=== PATIENT | female | born 1950 | race Caucasian/White ===

== ENCOUNTER 2017-04-25 19:20 | Emergency (ER) | payer MEDICARE ==
[~2017-04-25] VITALS: Ht 167.6 cm; Wt 74.8 kg
[~2017-04-25 19:20] MED LIST: ALPR.5 PO; AMIO200 PO; AMIT75; BENZ1 PO; BENZ2; BENZ2 PO; BISA10S PR; BISA5EC PO; CARI350; CARI350 PO; CARV25 PO; CEPH500 PO; CIPR500 PO; CYCL10 PO; Cyclobenzaprine5 MG PO; DIAZ2; DIAZ2 PO; DIAZ5; DIGO.125 PO; DILT30 PO; DIPATR PO; DOC250 PO; Drisdol50000 UNIT PO; FURO40 PO; GABA100 PO; GABA400 PO; GABA600 PO; HALO1 PO; HALO2 PO; HYDACE10B; HYDACE10B PO; HYDACE5 PO; HYDACE5325; HYDACE5325 PO; HYDCHL12.5 PO; HYDMOR2 PO; HYDR1TAB94 PO; IBUP800; IBUP800 PO; KLONOPIN; LANOXIN125 MCG PO; LEVFLO500 PO; LEVO750 PO; LIDO5TP TOP; LISI5 PO; LOSA25 PO; MAGCIT300 PO; MAGOXI400 PO; METH10; METO25; METO25ER PO; METPRE4DP PO; MORP15ER PO; MORP30ER PO; NAPR500 PO; NEBI10 PO; OLME40 PO; OXYACE5T; OXYACE5T PO; OXYC10ER; OXYC1TAB11 PO; OXYCONTIN; PAIN MED; PHENA200 PO; POTCHL20ER PO; POTCIT10 PO; PSYL5.85P PO; RISP.5 PO; RISP1 PO; RXCLIN PO; RXOXYACE PO; SACC250C PO; SPIR25 PO; SPIR50 PO; TOBDEXOPSU OP; TORSE20 PO; Voltaren100 GM TOP; WARF4 PO; WARF5 PO; WARF7.5 PO; XARELTO15 MG PO; XARELTO20 MG PO; [UNRECOGNIZED DRUG - CODE]; [UNRECOGNIZED DRUG - REMARK]
[2017-04-25 19:47] LABS: BASOPHILS ABSOLUTE AUTO 0.07 K/mm3 (0.00-0.23); BASOPHILS PERCENT AUTO 1 % (0-2); EOSINOPHILS ABSOLUTE AUTO 0.35 K/mm3 (0.00-0.68); EOSINOPHILS PERCENT AUTO 4 % (0-6); Hematocrit 36.7 % (33.0-51.0); Hemoglobin 12.3 g/dL (11.5-16.0); IMMATURE GRAN ABSOLUTE AUTO 0.03 K/mm3 (0.00-0.10); IMMATURE GRAN PERCENT AUTO 0 % (0-1); LYMPHOCYTES ABSOLUTE AUTO 2.48 K/mm3 (0.84-5.20); LYMPHOCYTES PERCENT AUTO 26 % (21-46); MONOCYTES ABSOLUTE AUTO 0.44 K/mm3 (0.16-1.47); MONOCYTES PERCENT AUTO 5 % (4-13); Mean Corpuscular HGB 32.2 pg (26.0-34.0); Mean Corpuscular HGB Conc 33.5 g/dL (31.5-36.5); Mean Corpuscular Volume 96 fL (80-100); Mean Platelet Volume 9.2 fL (9.1-12.4); NEUTROPHILS ABSOLUTE AUTO 6.04 K/mm3 (1.96-9.15); NEUTROPHILS PERCENT AUTO 64 % (41-73); Platelet Count 345 K/mm3 (150-400); RDW Coefficient Variation 14.1 % (11.7-14.2); RDW Standard Deviation 48.7 fL (35.1-46.3); Red Blood Cell Count 3.82 M/mm3 (3.80-5.20); White Blood Cell Count 9.41 K/mm3 (4.00-11.30)
[2017-04-25] MEDS ORDERED: ASPI325 PO (19:48)
[2017-04-25] MEDS ORDERED: WARF5 PO (19:48)
[2017-04-25 20:08] LABS: Alanine Aminotransfer (ALT/SGP 15 U/L (12-78); Albumin, Blood 3.6 g/dL (3.4-5.0); Albumin/Globulin Ratio 1.2 (0.8-1.8); Alk Phos 80 U/L (50-136); Anion Gap 9 mmol/L (6-16); Aspartate Aminotrans (AST/SGOT 15 U/L (12-37); Bilirubin, Total 0.7 mg/dL (0.1-1.0); Blood Urea Nitrogen 26 mg/dL (8-24); Bun/Creatinine Ratio 19.5 (12.0-20.0); CO2, Blood 24 mmol/L (21-32); Calcium, Blood 8.4 mg/dL (8.5-10.1); Chloride, Blood 98 mmol/L (98-108); Creatinine, Blood 1.33 mg/dL (0.40-1.00); Glomerular Filtration Rate 42 (60-); Glucose, Blood 101 mg/dL (70-99); Potassium, Blood 4.3 mmol/L (3.5-5.5); Sodium, Blood 131 mmol/L (136-145); Total Protein, Blood 6.6 g/dL (6.4-8.2); Troponin I <0.015 ng/mL (0.000-0.040)
[2017-04-25 20:19] LABS: Digoxin (Lanoxin) 0.92 ug/mL (0.80-2.00)
[2017-04-25 20:49] LABS: International Normalized Ratio 1.29; Prothrombin Time Results 13.5 Sec (9.7-11.5)
[2017-04-25] MEDS ORDERED: Nitrostat0.4 MG SL (21:55)
[2017-04-25] MEDS ORDERED: Pepcid20 MG PO (21:55)
[2017-04-25] MEDS ORDERED: Aspirin EC81 MG PO (21:55)
[2017-12-04] MEDS ORDERED: Alendronate Sod10 MG PO (16:02)
[2017-12-14] MEDS ORDERED: RISPERDAL PO (16:43)
[2017-12-14] MEDS ORDERED: ACET500 PO (16:44)
[2017-12-14] MEDS ORDERED: ALBU90OI61 INH (16:44)
[2018-02-28] MEDS ORDERED: Zofran Odt4 MG SL (11:42)
== END 2017-04-25 22:01 | disposition left against medical advice (07) ==
LOC: ER 19:20
PROVIDERS: Emergency Medicine
DX: R07.9 Chest pain, unspecified (principal); I10 Essential (primary) hypertension; J44.9 Chronic obstructive pulmonary disease, unspecified; F17.200 Nicotine dependence, unspecified, uncomplicated; Z88.2 Allergy status to sulfonamides; Z88.8 Allergy status to other drugs, medicaments and biological substances; Z79.82 Long term (current) use of aspirin; Z79.01 Long term (current) use of anticoagulants; Z90.89 Acquired absence of other organs; Z90.49 Acquired absence of other specified parts of digestive tract; Z79.899 Other long term (current) drug therapy; Z98.890 Other specified postprocedural states
CPT/HCPCS: 71046; 80053; 80162; 84484; 85025; 85610; 85730; 93005; 93010; 99284

== ENCOUNTER 2017-08-08 12:46 | Emergency (ER) | payer MEDICARE, OTHER ==
[~2017-08-08] VITALS: Ht 167.6 cm; Wt 74.8 kg
[~2017-08-08 12:46] MED LIST changes: +ASPI325 PO; +Aspirin EC81 MG PO; +Nitrostat0.4 MG SL; +Pepcid20 MG PO
[2017-08-08 13:27] LABS: BASOPHILS ABSOLUTE AUTO 0.05 K/mm3 (0.00-0.23); BASOPHILS PERCENT AUTO 1 % (0-2); EOSINOPHILS ABSOLUTE AUTO 0.08 K/mm3 (0.00-0.68); EOSINOPHILS PERCENT AUTO 1 % (0-6); Hematocrit 38.2 % (33.0-51.0); Hemoglobin 12.9 g/dL (11.5-16.0); IMMATURE GRAN ABSOLUTE AUTO 0.03 K/mm3 (0.00-0.10); IMMATURE GRAN PERCENT AUTO 0 % (0-1); LYMPHOCYTES ABSOLUTE AUTO 1.24 K/mm3 (0.84-5.20); LYMPHOCYTES PERCENT AUTO 14 % (21-46); MONOCYTES ABSOLUTE AUTO 0.52 K/mm3 (0.16-1.47); MONOCYTES PERCENT AUTO 6 % (4-13); Mean Corpuscular HGB 32.1 pg (26.0-34.0); Mean Corpuscular HGB Conc 33.8 g/dL (31.5-36.5); Mean Corpuscular Volume 95 fL (80-100); Mean Platelet Volume 8.9 fL (9.1-12.4); NEUTROPHILS ABSOLUTE AUTO 6.95 K/mm3 (1.96-9.15); NEUTROPHILS PERCENT AUTO 78 % (41-73); Platelet Count 490 K/mm3 (150-400); RDW Coefficient Variation 12.2 % (11.7-14.2); RDW Standard Deviation 42.7 fL (35.1-46.3); Red Blood Cell Count 4.02 M/mm3 (3.80-5.20); White Blood Cell Count 8.87 K/mm3 (4.00-11.30)
[2017-08-08] MEDS ORDERED: GABA300 PO (13:32)
[2017-08-08 13:44] LABS: International Normalized Ratio 1.76; Prothrombin Time Results 18.6 Sec (9.7-11.5)
[2017-08-08 13:48] LABS: Alanine Aminotransfer (ALT/SGP 18 U/L (12-78); Albumin, Blood 3.6 g/dL (3.4-5.0); Alk Phos 99 U/L (50-136); Anion Gap 10 mmol/L (6-16); Aspartate Aminotrans (AST/SGOT 12 U/L (12-37); Bilirubin, Total 0.7 mg/dL (0.1-1.0); Blood Urea Nitrogen 33 mg/dL (8-24); Bun/Creatinine Ratio 21.6 (12.0-20.0); CO2, Blood 24 mmol/L (21-32); Calcium, Blood 9.3 mg/dL (8.5-10.1); Chloride, Blood 103 mmol/L (98-108); Creatinine, Blood 1.53 mg/dL (0.40-1.00); Globulin, Blood 3.7 g/dL (2.2-4.0); Glomerular Filtration Rate 36 (60-); Glucose, Blood 102 mg/dL (70-99); Potassium, Blood 4.1 mmol/L (3.5-5.5); Sodium, Blood 137 mmol/L (136-145); Total Protein, Blood 7.3 g/dL (6.4-8.2); Troponin I <0.015 ng/mL (0.000-0.040)
[2017-08-08 13:56] LABS: Digoxin (Lanoxin) 0.09 ug/mL (0.80-2.00)
== END 2017-08-08 15:00 | disposition home or self-care (01) ==
LOC: ER 12:46
PROVIDERS: Emergency Medicine
DX: I48.91 Unspecified atrial fibrillation (principal); F20.9 Schizophrenia, unspecified; M54.5 Low back pain; G89.29 Other chronic pain; J44.9 Chronic obstructive pulmonary disease, unspecified; I10 Essential (primary) hypertension; F17.210 Nicotine dependence, cigarettes, uncomplicated; Z88.2 Allergy status to sulfonamides; Z88.8 Allergy status to other drugs, medicaments and biological substances; Z79.899 Other long term (current) drug therapy; Z79.01 Long term (current) use of anticoagulants; Z79.82 Long term (current) use of aspirin
CPT/HCPCS: 71045; 80053; 80162; 83880; 84484; 85025; 85610; 93005; 93010; 96374; 96375; 99283

== ENCOUNTER 2017-12-15 06:03 | Day surgery (SDC) | payer MEDICARE ==
[~2017-12-15] VITALS: Ht 152.4 cm; Wt 90.2 kg
[~2017-12-15 06:03] MED LIST changes: +ACET500 PO; +ALBU90OI61 INH; +Alendronate Sod10 MG PO; +GABA300 PO; +RISPERDAL PO
[2017-12-16 06:42] LABS: International Normalized Ratio 1.13; Prothrombin Time Results 11.6 Sec (9.7-11.5)
[2017-12-16 06:53] LABS: Bun/Creatinine Ratio 15.6 (12.0-20.0); Creatinine, Blood 1.47 mg/dL (0.40-1.00); Potassium, Blood 3.5 mmol/L (3.5-5.5)
[2017-12-16 10:05] LABS: International Normalized Ratio 1.2; Prothrombin Time Results 12.2 Sec (9.7-11.5)
[2017-12-16 15:01] LABS: International Normalized Ratio 1.21; Prothrombin Time Results 12.3 Sec (9.7-11.5)
[2017-12-16 15:13] LABS: Bun/Creatinine Ratio 16.2 (12.0-20.0); Calcium, Blood 7.7 mg/dL (8.5-10.1); Creatinine, Blood 1.42 mg/dL (0.40-1.00); Potassium, Blood 3.7 mmol/L (3.5-5.5)
== END 2017-12-16 17:12 | disposition home or self-care (01) ==
LOC: MHTC 06:03 → ICUW 08:22 → PCU 08:53 → MHTC 12-16 17:12
PROVIDERS: Internal Medicine Interventional Cardiology
PROC: 4A023N7 Measurement of Cardiac Sampling and Pressure, Left Heart, Percutaneous Approach (ICD-10-PCS; principal; 2017-12-15)
PROC: B211YZZ Fluoroscopy of Multiple Coronary Arteries using Other Contrast (ICD-10-PCS; principal; 2017-12-15)
PROC: 5A2204Z Restoration of Cardiac Rhythm, Single (ICD-10-PCS; principal; 2017-12-15)
DX: I25.10 Atherosclerotic heart disease of native coronary artery without angina pectoris (principal); I34.0 Nonrheumatic mitral (valve) insufficiency; I13.0 Hypertensive heart and chronic kidney disease with heart failure and stage 1 through stage 4 chronic kidney disease, or unspecified chronic kidney disease; I50.23 Acute on chronic systolic (congestive) heart failure; F17.210 Nicotine dependence, cigarettes, uncomplicated; I42.9 Cardiomyopathy, unspecified; I48.91 Unspecified atrial fibrillation; Z79.01 Long term (current) use of anticoagulants; N18.9 Chronic kidney disease, unspecified
CPT/HCPCS: 36415; 80048; 85610; 85730; 93454; 94640; 94762; 99152; 99153; C1769; C1894; J1644; J2250; J3010; J3480; J7030; Q9967

== ENCOUNTER 2017-12-19 08:37 | Emergency (ER) | payer MEDICARE ==
[~2017-12-19] VITALS: Ht 167.6 cm; Wt 90.7 kg
[2017-12-19 08:59] LABS: BASOPHILS ABSOLUTE AUTO 0.04 K/mm3 (0.00-0.23); BASOPHILS PERCENT AUTO 0 % (0-2); EOSINOPHILS ABSOLUTE AUTO 0.02 K/mm3 (0.00-0.68); EOSINOPHILS PERCENT AUTO 0 % (0-6); Hematocrit 39.1 % (33.0-51.0); Hemoglobin 12.1 g/dL (11.5-16.0); IMMATURE GRAN ABSOLUTE AUTO 0.04 K/mm3 (0.00-0.10); IMMATURE GRAN PERCENT AUTO 0 % (0-1); LYMPHOCYTES ABSOLUTE AUTO 0.77 K/mm3 (0.84-5.20); LYMPHOCYTES PERCENT AUTO 6 % (21-46); MONOCYTES ABSOLUTE AUTO 1.11 K/mm3 (0.16-1.47); MONOCYTES PERCENT AUTO 8 % (4-13); Mean Corpuscular HGB 29.8 pg (26.0-34.0); Mean Corpuscular HGB Conc 30.9 g/dL (31.5-36.5); Mean Corpuscular Volume 96 fL (80-100); NEUTROPHILS ABSOLUTE AUTO 11.63 K/mm3 (1.96-9.15); NEUTROPHILS PERCENT AUTO 85 % (41-73); Platelet Count 331 K/mm3 (150-400); RDW Coefficient Variation 16.7 % (11.7-14.2); RDW Standard Deviation 59.6 fL (35.1-46.3); Red Blood Cell Count 4.06 M/mm3 (3.80-5.20); White Blood Cell Count 13.61 K/mm3 (4.00-11.30)
[2017-12-19 09:08] LABS: Base Excess Venous 7.8 mmol/L; PCO2 Venous 54.5 mmHg (38-42); PO2 Venous 27.8 mmHg (38-42); pH Blood Venous 7.39 (7.34-7.37)
[2017-12-19 09:17] LABS: Alanine Aminotransfer (ALT/SGP 19 U/L (12-78); Albumin, Blood 3.3 g/dL (3.4-5.0); Alk Phos 120 U/L (50-136); Anion Gap 8 mmol/L (6-16); Aspartate Aminotrans (AST/SGOT 12 U/L (12-37); Bilirubin, Total 0.9 mg/dL (0.1-1.0); Blood Urea Nitrogen 20 mg/dL (8-24); Bun/Creatinine Ratio 17.9 (12.0-20.0); CO2, Blood 31 mmol/L (21-32); Calcium, Blood 9.1 mg/dL (8.5-10.1); Chloride, Blood 99 mmol/L (98-108); Creatinine, Blood 1.12 mg/dL (0.40-1.00); Globulin, Blood 3.4 g/dL (2.2-4.0); Glomerular Filtration Rate 52 (60-); Glucose, Blood 142 mg/dL (70-99); Potassium, Blood 3.6 mmol/L (3.5-5.5); Sodium, Blood 138 mmol/L (136-145); Total Protein, Blood 6.7 g/dL (6.4-8.2); Troponin I <0.015 ng/mL (0.000-0.040)
[2017-12-19 09:25] LABS: International Normalized Ratio 1.88; Prothrombin Time Results 18.7 Sec (9.7-11.5)
== END 2017-12-19 12:30 | disposition short-term general hospital (02) ==
LOC: ER 08:37
PROVIDERS: Emergency Medicine
DX: J96.01 Acute respiratory failure with hypoxia (principal); J44.1 Chronic obstructive pulmonary disease with (acute) exacerbation; I50.9 Heart failure, unspecified; I08.1 Rheumatic disorders of both mitral and tricuspid valves; I11.0 Hypertensive heart disease with heart failure; Z88.2 Allergy status to sulfonamides; Z88.8 Allergy status to other drugs, medicaments and biological substances; Z79.899 Other long term (current) drug therapy; Z79.01 Long term (current) use of anticoagulants; Z79.51 Long term (current) use of inhaled steroids
CPT/HCPCS: 36415; 71045; 80053; 82803; 83880; 84484; 85025; 85610; 93005; 93010; 94644; 94660; 99285-25

== ENCOUNTER 2018-04-20 01:25 | Inpatient (IN) | payer MEDICARE ==
[~2018-04-20] VITALS: Ht 167.6 cm; Wt 92.2 kg
[~2018-04-20 01:25] MED LIST changes: +Zofran Odt4 MG SL
[2018-04-20 01:41] LABS: PCO2 Arterial 35.8 mmHg (35-45); PO2 Arterial 128 mmHg (80-100)
[2018-04-20 01:49] LABS: BASOPHILS ABSOLUTE AUTO 0.07 K/mm3 (0.00-0.23); BASOPHILS PERCENT AUTO 1 % (0-2); EOSINOPHILS ABSOLUTE AUTO 0.36 K/mm3 (0.00-0.68); EOSINOPHILS PERCENT AUTO 4 % (0-6); Hematocrit 35.8 % (33.0-51.0); Hemoglobin 11.1 g/dL (11.5-16.0); IMMATURE GRAN ABSOLUTE AUTO 0.01 K/mm3 (0.00-0.10); IMMATURE GRAN PERCENT AUTO 0 % (0-1); LYMPHOCYTES ABSOLUTE AUTO 1.14 K/mm3 (0.84-5.20); LYMPHOCYTES PERCENT AUTO 12 % (21-46); MONOCYTES ABSOLUTE AUTO 0.62 K/mm3 (0.16-1.47); MONOCYTES PERCENT AUTO 7 % (4-13); Mean Corpuscular HGB 32.5 pg (26.0-34.0); Mean Corpuscular Volume 105 fL (80-100); Mean Platelet Volume 9.8 fL (9.1-12.4); NEUTROPHILS ABSOLUTE AUTO 7.28 K/mm3 (1.96-9.15); NEUTROPHILS PERCENT AUTO 77 % (41-73); Platelet Count 324 K/mm3 (150-400); RDW Coefficient Variation 13.6 % (11.7-14.2); RDW Standard Deviation 51.5 fL (35.1-46.3); Red Blood Cell Count 3.42 M/mm3 (3.80-5.20); White Blood Cell Count 9.48 K/mm3 (4.00-11.30)
[2018-04-20 02:09] LABS: International Normalized Ratio 1.11; Prothrombin Time Results 11.7 Sec (9.7-11.5)
[2018-04-20 02:14] LABS: Alanine Aminotransfer (ALT/SGP 65 U/L (12-78); Albumin, Blood 3.8 g/dL (3.4-5.0); Albumin/Globulin Ratio 1.2 (0.8-1.8); Alk Phos 133 U/L (50-136); Anion Gap 10 mmol/L (6-16); Aspartate Aminotrans (AST/SGOT 39 U/L (12-37); Bilirubin, Total 0.4 mg/dL (0.1-1.0); Blood Urea Nitrogen 19 mg/dL (8-24); CO2, Blood 24 mmol/L (21-32); Calcium, Blood 7.9 mg/dL (8.5-10.1); Chloride, Blood 111 mmol/L (98-108); Creatinine, Blood 1.19 mg/dL (0.40-1.00); Globulin, Blood 3.2 g/dL (2.2-4.0); Glomerular Filtration Rate 48 (60-); Glucose, Blood 124 mg/dL (70-99); Potassium, Blood 3.4 mmol/L (3.5-5.5); Sodium, Blood 145 mmol/L (136-145); Troponin I <0.015 ng/mL (0.000-0.040)
--- NOTE | 2018-04-20 03:43 | NUR ---
ADMIT NOTE ADMIT 68 YO FEMALE TO ICU 15, PCU STATUS TO HOSPITALIST DR MOJICA SERVICE PER TAMY VIA ER. GAIT STEADY WITH ASSIST TO TRANSFER TO BED. MONITOR PLACED SHOWING AFIB. HEART RATE 90'S-110'S. REQUEST PAIN MED SECONDARY TO PAIN IN BACK/ LEGS. EXPLAINED THAT HAD BEEN GIVEN MED IN ER. LUNGS SOUNDS CLEAR IN UPPER LOBES WITH DECREASED SOUNDS IN THE BASES. REPIRATIONS REGULAR AND EASY AT REST WITH SPO2 94-96% ABDOMEN SOFT WITH BOWEL SOUNDS FOUR QUADS. PEDAL ANKLE EDEMA NOTED 1+ PEDAL PULSES PRESENT. CONTINUE TO MONITOR AND REPORT CHANGE IN PATIENT CONDITION.
--- NOTE | 2018-04-20 06:40 | NUR ---
SHIFT SUMMARY; rests quietly when undisturbed. monITOR INTACT SHOWING A FIB. HEART RATE 80'S-100'S. CO BACK AND LEG PAIN 11/06. HOSPITALIST NOTIFIED ORDERS NOTED. LUNG SOUNDS CLEAR UPPER LOBES WITH DECREASED SOUNDS IN THE BASES L MORE THAN RIGHT. RESPIRATIONS REGULAR AND EASY WITH O2 IN PLACE AT 2L/MIN. SPO2 94-96%. ABDOMEN SOFT WITH BOWEL SOUNDS FOUR QUADS. VOIDS QUYNH URINE UP WITH MINIMAL ASSIST TO BSC. GENERALIZED EDEMA NOTED TO FEET ANKLES PEDAL PULSES PRESENT. STEADY TO BSC WITH STAND BY ASSIST. CONTINUE TO MONITOR AND RPORT CHANGE IN PATIENT CONDITION.
--- NOTE | 2018-04-20 08:00 | NUR ---
Recieved report from Rona RN. Patient rest at first and then got up to use bedside cammode. She has med very hard formed stool. She is independet getting up in room and calls when needing help. She is alert and oriented and is able to communicate her needs. She is on 2L O2 via NC and sats mid 90%'s while sleeping. She was up briefly to eat breakfast and currently resing again. She has 18ga IV in RAC and dressing intact and sire WNL's and flushed and SL. She also has LH IV Field start Dressing intact and site WNL's and is infusing Diltiazem at 20mg/hr with rate in the 90"s. She currently denies any pain.
[2018-04-20 08:52] LABS: Bun/Creatinine Ratio 17.8 (12.0-20.0); Calcium, Blood 7.9 mg/dL (8.5-10.1); Creatinine, Blood 1.01 mg/dL (0.40-1.00); Potassium, Blood 3.5 mmol/L (3.5-5.5)
--- NOTE | 2018-04-20 09:30 | NUR ---
Patient has been up several times to [facility] and had another hard formed stool and once for urine. She ate small amount of breakfast and very particular about what she eats. She remains independent in bed. She tooks meds without difficulty and request nicotine patch.
--- NOTE | 2018-04-20 14:45 | NUR ---
PATIENT HAS BEEN TOLERATING pEPSI SHE REQUESTS. SHE IS UP TO BEDSIDE COMMODE FREQUENTLY AND THEN GOES BACK TO RESTING. CARDIZEM GTT AT 15MG/HR WITH HR 80'S. MEDICATED FOR PAIN PER MAY. vss. SHE HAS NO CURRENT NEEDS.
--- NOTE | 2018-04-20 15:13 | NUR ---
PT ARRIVED FROM ICU TO PCU AFTER RENÉE SANCHEZ GIVES DETAILED REPORT. PT IS AO X 4 ON ARRIVAL. SHE REMAINS ON A 15MG/HOUR CARDIZEM DRIP. ONE IV IS PRESENT IN LEFT AC. PT HAS PLEASANT AFFECT. TRANSFERS FROM WHEEL CHIAR TO BED WITHOUT DIFF. NO SKIN ISSUES ARE NOTED. LUNGS ARE DIM IN THE BASES AND WHEEZES ARE NOTED IN UPPER LOBES. PT ON 2 LITERS O2 VIA NASAL CANNULA. WILL CONTINUE TO MONITOR THIS PATIENT CLOSELY.
--- NOTE | 2018-04-20 15:24 | NUR ---
Report given to Salma SANCHEZ and all personal belonging were taken with her. She went via wheel chair and Cardizem gtt at 15mg/hr
[2018-04-21 04:04] LABS: BASOPHILS ABSOLUTE AUTO 0.01 K/mm3 (0.00-0.23); BASOPHILS PERCENT AUTO 0 % (0-2); EOSINOPHILS PERCENT AUTO 0 % (0-6); IMMATURE GRAN ABSOLUTE AUTO 0.03 K/mm3 (0.00-0.10); IMMATURE GRAN PERCENT AUTO 0 % (0-1); LYMPHOCYTES ABSOLUTE AUTO 0.44 K/mm3 (0.84-5.20); LYMPHOCYTES PERCENT AUTO 4 % (21-46); MONOCYTES ABSOLUTE AUTO 0.07 K/mm3 (0.16-1.47); MONOCYTES PERCENT AUTO 1 % (4-13); Mean Corpuscular HGB 32.1 pg (26.0-34.0); Mean Corpuscular HGB Conc 31.3 g/dL (31.5-36.5); Mean Corpuscular Volume 103 fL (80-100); Mean Platelet Volume 10.2 fL (9.1-12.4); NEUTROPHILS ABSOLUTE AUTO 10.42 K/mm3 (1.96-9.15); NEUTROPHILS PERCENT AUTO 95 % (41-73); Platelet Count 285 K/mm3 (150-400); RDW Coefficient Variation 13.5 % (11.7-14.2); RDW Standard Deviation 50.5 fL (35.1-46.3); Red Blood Cell Count 3.12 M/mm3 (3.80-5.20); White Blood Cell Count 10.97 K/mm3 (4.00-11.30)
--- NOTE | 2018-04-21 04:09 | NUR ---
SHIFT SUMMARY: PATIENT SLEPT WELL THIS SHIFT, VSS, CALL LIGHT WITHIN REACH AND USED APPROPRIATLY, BED LOW AND LOCKED.
[2018-04-21 04:18] LABS: International Normalized Ratio 1.48; Prothrombin Time Results 15.1 Sec (9.7-11.5)
[2018-04-21 04:28] LABS: Magnesium, Blood 1.8 mg/dL (1.6-2.4)
[2018-04-21 04:29] LABS: Albumin, Blood 3.4 g/dL (3.4-5.0); Albumin/Globulin Ratio 1.1 (0.8-1.8); Bilirubin, Total 0.3 mg/dL (0.1-1.0); Bun/Creatinine Ratio 19.5 (12.0-20.0); Calcium, Blood 7.9 mg/dL (8.5-10.1); Creatinine, Blood 1.33 mg/dL (0.40-1.00); Globulin, Blood 3.2 g/dL (2.2-4.0); Potassium, Blood 3.5 mmol/L (3.5-5.5); Total Protein, Blood 6.6 g/dL (6.4-8.2)
--- NOTE | 2018-04-21 07:35 | NUR ---
NURSING PCU DAYSHIFT: Assumed care of pt at approx 0700. A/O, pleasant, cooperative w/care. Mild general weakness, able to xfer independently, assistance required for line management only. Denies any pain/discomfort at rest. Skin is fragile w/no breakdown noted. Tele in place, afib w/HR 100-120, no c/o CP/pressure, SBP 140's, trace BLE edema. 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 Abd SNT, BT+, voiding w/o difficulty per pt. PIV x2, diltiazem gtt infusing at 10cc/hr. No s/s of acute distress at this time. Pt denies any current needs or questions regarding plan of care. Awaiting rounding from PMD, call light in reach, cont to monitor for any changes.
--- NOTE | 2018-04-21 16:46 | NUR ---
NURSING PCU TRANSFER SUMMARY: No significant changes noted t/o the shift. VS have remained stable w/HR 110-120, no c/o CP/pressure. Respiratory status has had mild improvement, O2 sat maintaining low to mid 90's on RA, pt continues to experience dyspnea w/exertion. Seen by PMD, transfer to medical floor d/o received. Awaiting telephone report to accepting RN. Pt denies any questions/needs. Cont to monitor until xfer is complete.
--- NOTE | 2018-04-21 18:16 | NUR ---
PCU TRANSFER PT ARRIVE TO RM 335 APPROX 1800 TRANSFER FROM PCU 4. SHE IS A/O X4, PLEASANT AFFECT. STATE NO PAIN/DISCOMFORT. NO SOB @ REST. LUNGS CLEAR ON RA. ORIENTED TO RM & CALL SYSTEM. FLUIDS PROVIDED.
[2018-04-22 05:13] LABS: BASOPHILS ABSOLUTE AUTO 0.01 K/mm3 (0.00-0.23); BASOPHILS PERCENT AUTO 0 % (0-2); EOSINOPHILS PERCENT AUTO 0 % (0-6); Hemoglobin 11.1 g/dL (11.5-16.0); IMMATURE GRAN ABSOLUTE AUTO 0.19 K/mm3 (0.00-0.10); IMMATURE GRAN PERCENT AUTO 1 % (0-1); LYMPHOCYTES ABSOLUTE AUTO 0.41 K/mm3 (0.84-5.20); LYMPHOCYTES PERCENT AUTO 2 % (21-46); MONOCYTES ABSOLUTE AUTO 0.15 K/mm3 (0.16-1.47); MONOCYTES PERCENT AUTO 1 % (4-13); Mean Corpuscular HGB 32.7 pg (26.0-34.0); Mean Corpuscular HGB Conc 30.8 g/dL (31.5-36.5); Mean Platelet Volume 9.9 fL (9.1-12.4); NEUTROPHILS PERCENT AUTO 96 % (41-73); Platelet Count 325 K/mm3 (150-400); RDW Coefficient Variation 13.6 % (11.7-14.2); RDW Standard Deviation 53.5 fL (35.1-46.3); Red Blood Cell Count 3.39 M/mm3 (3.80-5.20); White Blood Cell Count 17.06 K/mm3 (4.00-11.30)
[2018-04-22 05:15] LABS: Mean Corpuscular Volume 106 fL (80-100)
[2018-04-22 05:27] LABS: International Normalized Ratio 2.04; Prothrombin Time Results 20.3 Sec (9.7-11.5)
[2018-04-22 05:37] LABS: Bun/Creatinine Ratio 26.8 (12.0-20.0); Calcium, Blood 8.2 mg/dL (8.5-10.1); Creatinine, Blood 1.38 mg/dL (0.40-1.00); Magnesium, Blood 2.1 mg/dL (1.6-2.4); Potassium, Blood 3.9 mmol/L (3.5-5.5)
--- NOTE | 2018-04-22 06:35 | NUR ---
SHIFT SUMMARY: PT REMAINS A&O, INDEPENDENT IN ROOM. CONT TO TOLERATE ROOM AIR. PLEASANT, COOPERATIVE WITH CARE. C/O PAIN IN LOW BACK; TREATED c SCHEDULED TRAMADOL. USES CALL LIGH APPROPRIATELY. DENIES ANY NEEDS AT THIS TIME. PT TO DC HOME TODAY. WILL CONT TO MONITOR AND PROVIDE CARE UNTIL PRESUMED BY ONCOMING RN.
[2018-04-22] MEDS ORDERED: TORSE20 PO (12:10)
[2018-04-22] MEDS ORDERED: AZIT250 (12:11)
[2018-04-22] MEDS ORDERED: NICO21TP (12:16)
[2018-04-22] MEDS ORDERED: ALBU3IS (12:16)
[2018-04-22] MEDS ORDERED: TRAM50 (12:17)
[2018-04-22] MEDS ORDERED: PRED20 (12:21)
[2018-04-22] MEDS ORDERED: SPIR25 (12:23)
--- NOTE | 2018-04-22 13:55 | NUR ---
DISCHARGE DR DIEGO IN TO SEE PT THIS AM, STATE SHE MAY D/C HOME TO SYED ALICIA ORDERS. [facility] ARRANGE [facility], ARRANGE NEW NEBULIZER MACHINE WITH FATIM[facility]. NEW SCRIPTS & ANTIBX ORDERS FAXED TO [facility]/REQUEST. HARD COPY ULTRAM PROVIDED TO PT. D/C INSTRUCT PROVIDED TO PT & HER SISTER WITH EMPHAISIS ON MAKING F/U APPT WITH PCP & WARFARIN/AFIB MANAGEMENT. SISTER WILL PROVIDE TRANSPORT HOME. W/C ESCORT FROM HOSP PROVIDED. PT IS PLEASANT/APPRECIATIVE. STATE READY FOR D/C HOME.
[2018-05-21] MEDS ORDERED: Pepcid20 MG PO (23:51)
[2018-05-21] MEDS ORDERED: Nitrostat0.4 MG SL (23:51)
== END 2018-04-22 13:35 | disposition home health service (06) | DRG 191 ==
LOC: ER 01:25 → ICUW 02:52 → MEDS 03:35 → ICUW 03:43 → PCU 15:50 → MEDS 04-21 17:50 → ENPENDDIS 04-22 12:00 → MEDS 04-22 13:35
PROVIDERS: Emergency Medicine; Internal Medicine; ADMIT Hospitalist
DX: J44.1 Chronic obstructive pulmonary disease with (acute) exacerbation (principal); I50.22 Chronic systolic (congestive) heart failure; I48.91 Unspecified atrial fibrillation; N18.3 Chronic kidney disease, stage 3 (moderate); I34.0 Nonrheumatic mitral (valve) insufficiency; F20.9 Schizophrenia, unspecified; M54.9 Dorsalgia, unspecified; F17.210 Nicotine dependence, cigarettes, uncomplicated; Z88.2 Allergy status to sulfonamides; Z88.8 Allergy status to other drugs, medicaments and biological substances; Z79.01 Long term (current) use of anticoagulants; Z79.899 Other long term (current) drug therapy
CPT/HCPCS: 36415; 36600; 71045; 80048; 80053; 82803; 83735; 83880; 84484; 85025; 85610; 93005; 93010; 94640; 94644; 94660; 94760; 96365; 96375; 96376; 99285-25; J1650; J2930

== ENCOUNTER 2018-04-24 20:58 | Inpatient (IN) | payer MEDICARE ==
[~2018-04-24] VITALS: Ht 167.6 cm; Wt 85.9 kg
[~2018-04-24 20:58] MED LIST changes: +ALBU3IS; +AZIT250; +NICO21TP; +PRED20; +SPIR25; +TRAM50
[2018-04-24] MEDS ORDERED: LISI20 PO (21:24)
[2018-04-24 21:28] LABS: BASOPHILS ABSOLUTE AUTO 0.01 K/mm3 (0.00-0.23); BASOPHILS PERCENT AUTO 0 % (0-2); EOSINOPHILS ABSOLUTE AUTO 0.36 K/mm3 (0.00-0.68); EOSINOPHILS PERCENT AUTO 4 % (0-6); Hematocrit 41.6 % (33.0-51.0); Hemoglobin 13.2 g/dL (11.5-16.0); IMMATURE GRAN ABSOLUTE AUTO 0.05 K/mm3 (0.00-0.10); IMMATURE GRAN PERCENT AUTO 1 % (0-1); LYMPHOCYTES ABSOLUTE AUTO 1.62 K/mm3 (0.84-5.20); LYMPHOCYTES PERCENT AUTO 16 % (21-46); MONOCYTES ABSOLUTE AUTO 0.74 K/mm3 (0.16-1.47); MONOCYTES PERCENT AUTO 7 % (4-13); Mean Corpuscular HGB 32.5 pg (26.0-34.0); Mean Corpuscular HGB Conc 31.7 g/dL (31.5-36.5); Mean Platelet Volume 9.6 fL (9.1-12.4); NEUTROPHILS ABSOLUTE AUTO 7.63 K/mm3 (1.96-9.15); NEUTROPHILS PERCENT AUTO 73 % (41-73); Platelet Count 432 K/mm3 (150-400); RDW Coefficient Variation 13.3 % (11.7-14.2); Red Blood Cell Count 4.06 M/mm3 (3.80-5.20); White Blood Cell Count 10.41 K/mm3 (4.00-11.30)
[2018-04-24 21:29] LABS: Mean Corpuscular Volume 103 fL (80-100)
[2018-04-24 21:48] LABS: Alanine Aminotransfer (ALT/SGP 30 U/L (12-78); Albumin, Blood 3.8 g/dL (3.4-5.0); Albumin/Globulin Ratio 1.2 (0.8-1.8); Alk Phos 102 U/L (50-136); Anion Gap 11 mmol/L (6-16); Aspartate Aminotrans (AST/SGOT 9 U/L (12-37); Bilirubin, Total 0.5 mg/dL (0.1-1.0); Blood Urea Nitrogen 47 mg/dL (8-24); Bun/Creatinine Ratio 29.9 (12.0-20.0); CO2, Blood 30 mmol/L (21-32); Calcium, Blood 8.3 mg/dL (8.5-10.1); Chloride, Blood 103 mmol/L (98-108); Creatinine, Blood 1.57 mg/dL (0.40-1.00); Globulin, Blood 3.3 g/dL (2.2-4.0); Glomerular Filtration Rate 35 (60-); Glucose, Blood 140 mg/dL (70-99); Potassium, Blood 3.1 mmol/L (3.5-5.5); Sodium, Blood 144 mmol/L (136-145); Total Protein, Blood 7.1 g/dL (6.4-8.2); Troponin I <0.015 ng/mL (0.000-0.040)
--- NOTE | 2018-04-25 00:23 | NUR ---
TRANSFER REPORT From Johanny SANCHEZ in ER on pt recently dc being admitted obs status for afib and chest tightness. multiple medical problems including smoking and has schitzophrenia and copd and chf afib mitral valve regurgitation severe. PT didn't take her medication after dc she couldnt afford them per note. 35 to 40 % ejection fx. on room air and off cardizem gtt given in ER. Await admission
--- NOTE | 2018-04-25 03:56 | NUR ---
68 year old female admitted through ER with afib rvr and copd with EMS providing cpap support. Currently in afib rate 120s average since admission. Just dc home several days ago pt didn't fill discharge rx due to no prescription insurance, ? lack of resources. appears to have some cognitive deficits, hx of schitzophrenia ? off medication. very poor historian, unsure who her primary care provider is, denies knowlege of cardiac diagnosis and may not understand need for compliance with medications and diet restrictions as well as need for smoking cessation. PT says she had DNR status and tore up the paperwork? social worker aide referral to assess support and resouces, high risk readmission order from MD. PT appears to lack insight and ability to manage current health issues. unable to provide current medication list or name of primary care provider. seen by [facility] 04/22/18 3 week followup for cardiac issues. in notes ejection fraction mentioned between 28 and 45%.
[2018-04-25 05:41] LABS: International Normalized Ratio 2.02; Prothrombin Time Results 20.1 Sec (9.7-11.5)
[2018-04-25 06:16] LABS: Bun/Creatinine Ratio 35.7 (12.0-20.0); Calcium, Blood 8.2 mg/dL (8.5-10.1); Creatinine, Blood 1.26 mg/dL (0.40-1.00); Potassium, Blood 3.6 mmol/L (3.5-5.5)
--- NOTE | 2018-04-25 07:41 | NUR ---
ASSUMED CARE OF PT- BEDSIDE REPORT COMPLETE WITH DANIEL MALDONADO. PER REPORT PT HAS Hx ETOH USE, PT ADMITTED FOR AFIB RVR. ON MORNING VITALS PT HR WAS 134 PER TELE. SBP IN THE 140 RANGE. MEDICATED WITH ALL MORNING MEDS AND WILL DO FOLLOW UP BP IN AN HOUR. PT ALERT AND ORIENTED (PT HAS Hx SCHITZOPHRENIA) AND NO S&S OF DISTRESS AT THIS TIME. BED ALARM ON FOR SAFETY. PT HAS Hx OF FALLS. PT STATES SHE LIVES IN A CARE FACILITY IN [place], PER REPORT FROM NIGHT RN SHE STATES SHE HAS NOT TAKEN ANY MEDICATION FOR YEARS, PT WAS RECENTLY DISCHARGED FROM [facility] ON MEDICATIONS, POOR HISTORIAN.
--- NOTE | 2018-04-25 08:58 | NUR ---
SPOKE TO VENTURA WORTHINGTON, PT HR STILL 130'S, BP RECHECK SHOWED SBP OF 107. SPOKE TO DR DIEGO, SHE WILL PUT IN SOME ORDERS FOR IV MEDICATION TO REDUCE HR. PT STILL ASYMPTOMATIC AT THIS TIME.
--- NOTE | 2018-04-25 10:56 | NUR ---
CALLED TELE- PT HR AVERAGE DOWN TO 124 DURRING THE INFUSION OF DIGOXIN BACK TO 128 AFTER INFUSION COMPLETE. WILL CALL DR IF NO CHANGE IN 30 MINUTES.
--- NOTE | 2018-04-25 11:14 | NUR ---
CALLED TELE DIGOXIN AT [facility], HR 130 AVERAGE
--- NOTE | 2018-04-25 12:40 | NUR ---
SPOKE TO TELE PT HR STILL IN LOW 120'S AVERAGE 124
--- NOTE | 2018-04-25 12:49 | NUR ---
SPOKE TO DR DIEGO ABOUT PT HR. DR DIEGO STATED TO CANCEL LATER DOSE OF IVPB DIGOXIN AND GIVE IT NOW. SPOKE TO MCKENNA IN PHARMACY AND ORDER IS BEING CHANGED CURRENTLY.
--- NOTE | 2018-04-25 15:38 | NUR ---
CALLED TELE- PT HR STILL IN THE 120'S AND BLOOD PRESSURE HAS INCREASED.
--- NOTE | 2018-04-25 15:44 | NUR ---
SPOKE TO DR DIEGO ABOUT NO CHANGE TO HR AND INCREASED BP, ANOTHER IV PUSH 5 MG METOPROLOL ORDERED.
--- NOTE | 2018-04-25 17:08 | NUR ---
CALLED DR DIEGO- PT HAS HAD NO CHANGE AFTER THE SECOND IV PUSH OF METOPROLOL, POSSIBLY NEED CARDIZEM DRIP TO GET THE RATE DOWN. PT HAS BEGAN TO C/O BEING VERY TIRED, ONE C/O HEADACHE MEDICATED WITH TYLENOL PT STATED IT HAS IMPROVED. PLAN TO TRANSFER PT TO PCU ROOM 7 WHEN IT HAS BEEN CLEANED.
--- NOTE | 2018-04-25 18:18 | NUR ---
TRANSFER NOTE- PT TRANSFERED TO PCU 7 REPORT GIVEN TO DANIEL HUGHES. PT HR STILL ONE-TEENS TO 140'S AVERAGE 127. PT TAKEN BY W/C TO PCU. NO FURTHER QUESTIONS AT THE TIME OF TRANSFER.
--- NOTE | 2018-04-25 18:46 | NUR ---
END OF SHIFT; PT TRANSFERRED FROM MEDICAL FLOOR AT 1800 TODAY FOR AFIB RVR. HR IN THE 120'S. SHE IS ASYMPTOMATIC. HAS PLEASANT AFFECT. WILL RECIEVE IV CARDIZEM IN PCU. ON ARRIVAL IV IS INFILTRATED SO AWAITING NEW IV START. WILL CONTINUE TO MONITOR THIS PATIENT CLOSELY UNTIL REPORT AND LENZ D OFF TO NOC SHIFT RN.
--- NOTE | 2018-04-26 00:09 | NUR ---
PHYSICIAN CONTACTED- PT REPORTS INCREASE IN BACK, NECK AND LEG PAIN THAT DID NOT RELIEVE WITH TYLENOL. DR SANTOS CONTACTED AND ORDERS RECEIVED FOR ULTRAM TID. WILL INPUT ORDERS AND CONTINUE MONITORING.
[2018-04-26 04:13] LABS: Hematocrit 38.4 % (33.0-51.0); Hemoglobin 12.3 g/dL (11.5-16.0); LYMPHOCYTES PERCENT AUTO 7 % (21-46); MONOCYTES PERCENT AUTO 6 % (4-13); Mean Corpuscular HGB 32.3 pg (26.0-34.0); Mean Corpuscular Volume 101 fL (80-100); NEUTROPHILS PERCENT AUTO 86 % (41-73); Platelet Count 375 K/mm3 (150-400); RDW Coefficient Variation 13.2 % (11.7-14.2); RDW Standard Deviation 49.3 fL (35.1-46.3); Red Blood Cell Count 3.81 M/mm3 (3.80-5.20); White Blood Cell Count 13.15 K/mm3 (4.00-11.30)
[2018-04-26 04:14] LABS: BASOPHILS ABSOLUTE AUTO 0.01 K/mm3 (0.00-0.23); BASOPHILS PERCENT AUTO 0 % (0-2); EOSINOPHILS PERCENT AUTO 0 % (0-6); IMMATURE GRAN ABSOLUTE AUTO 0.05 K/mm3 (0.00-0.10); IMMATURE GRAN PERCENT AUTO 0 % (0-1); LYMPHOCYTES ABSOLUTE AUTO 0.94 K/mm3 (0.84-5.20); MONOCYTES ABSOLUTE AUTO 0.79 K/mm3 (0.16-1.47); NEUTROPHILS ABSOLUTE AUTO 11.36 K/mm3 (1.96-9.15)
[2018-04-26 04:28] LABS: International Normalized Ratio 2.71; Prothrombin Time Results 26.2 Sec (9.7-11.5)
[2018-04-26 04:31] LABS: Bilirubin, Total 0.4 mg/dL (0.1-1.0); Bun/Creatinine Ratio 36.8 (12.0-20.0); Calcium, Blood 7.9 mg/dL (8.5-10.1); Creatinine, Blood 1.25 mg/dL (0.40-1.00); Potassium, Blood 3.9 mmol/L (3.5-5.5)
--- NOTE | 2018-04-26 06:54 | NUR ---
SHIFT SUMMARY- PT HAS REMAINED AOX4 THROUGHOUT SHIFT. VSS. PLEASANT AND COOPERATIVE WITH CARE. PT CONTINUES TO AMBULATE WITH STANDBY ASSIST TO RESTROOM WITHOUT DIFFICULTY. DENIES CHEST PAIN, SHORTNESS OF BREATH, OR DIZZINESS WITH AMBULATION. CARDIZEM DRIP TITRATED PER PROTOCOL AND ORDERS- CURRENTLY INFUSING AT 5 MG/HR UNTIL TRANSITIONED TO PO MEDICATIONS. PT REPORTS THAT SHE IS UNABLE TO PAY FOR HOME MEDICATION REFILLS UNTIL THE 1ST DUE TO LACK OF FINANCIAL MEANS. RAT BREEDER CONSULT PLACED IN ATTEMPT TO FACILITATE TRANSITION TO DISCHARGE AND MEDICATION OBTAINMENT. PT MEDICATED MULTIPLE TIMES FOR PAIN THROUGHOUT THE NIGHT. NO OTHER CHANGES NOTED FROM INITIAL ASSESSMENT. WILL CONTINUE TO MONITOR AND REPORT TO ONCOMING RN. BED IN LOW POSITION, CALL LIGHT IN REACH. BED ALARM SET FOR SAFETY.
--- NOTE | 2018-04-26 09:27 | NUR ---
PCU DAYSHIFT ASSUMED CARE OF PT APPROX. 0700. PT A&O X4 AT THIS TIME. ASSESSMENT COMPLETED. VITAL SIGNS STABLE. HEART RHYTHM A. FIB WITH HEART RATE IN 90'S AT THIS TIME. CARDIZEM DRIP CONTINUES TO RUN AT THIS TIME. PT ABLE TO SIT UP IN BED FOR BREAKFAST. NO S/SX OF ACUTE DISTRESS OF DIZZINESS AT THIS TIME. BED IN LOW POSITION, BED ALARM ON, CALL LIGHT IN REACH AND PT DENIES ANY NEEDS AT THIS TIME.
--- NOTE | 2018-04-26 17:48 | NUR ---
SHIFT SUMMARY PT PLEASANT, COOPERATIVE AND USES CALL LIGHT APPROPRIATELY. PT REMAINS A&O X4. ASSESSMENT FINDINGS REMAIN UNCHANGED FROM AM. VITALS SIGNS STABLE. HEART RATE VARIED THROUGHOUT THE DAY BUT AVERAGING 90'S AT THIS TIME. CARE MANAGEMENT RN IN TO SEE PT TODAY. PT ABLE TO AMBULATE TO BATHROOM NEEDED AND TOLERATED WELL. PT HAD VISTOR FOR A SHORT PERIOD OF TIME TODAY. PT CURRENTLY IN BED, BED IN LOW POSITION, BED ALARM ON, CALL LIGHT IN REACH AND PT DENIES ANY NEEDS AT THIS TIME. WILL CONTINUE TO MONITOR UNTIL HANDOFF TO NIGHTSHIFT RN.
--- NOTE | 2018-04-26 17:51 | NUR ---
ADDITION TO SHIFT SUMMARY CARDIANJUMM DRIP TURNED OFF APPROX. 0930.
[2018-04-27 04:34] LABS: BASOPHILS ABSOLUTE AUTO 0.01 K/mm3 (0.00-0.23); BASOPHILS PERCENT AUTO 0 % (0-2); EOSINOPHILS ABSOLUTE AUTO 0.01 K/mm3 (0.00-0.68); EOSINOPHILS PERCENT AUTO 0 % (0-6); Hematocrit 37.9 % (33.0-51.0); Hemoglobin 12.5 g/dL (11.5-16.0); IMMATURE GRAN ABSOLUTE AUTO 0.05 K/mm3 (0.00-0.10); IMMATURE GRAN PERCENT AUTO 0 % (0-1); LYMPHOCYTES ABSOLUTE AUTO 1.64 K/mm3 (0.84-5.20); LYMPHOCYTES PERCENT AUTO 13 % (21-46); MONOCYTES PERCENT AUTO 5 % (4-13); Mean Corpuscular HGB 32.3 pg (26.0-34.0); Mean Corpuscular Volume 98 fL (80-100); Mean Platelet Volume 9.9 fL (9.1-12.4); NEUTROPHILS ABSOLUTE AUTO 10.57 K/mm3 (1.96-9.15); NEUTROPHILS PERCENT AUTO 81 % (41-73); Platelet Count 391 K/mm3 (150-400); RDW Coefficient Variation 13.4 % (11.7-14.2); RDW Standard Deviation 47.6 fL (35.1-46.3); Red Blood Cell Count 3.87 M/mm3 (3.80-5.20); White Blood Cell Count 12.98 K/mm3 (4.00-11.30)
[2018-04-27 04:50] LABS: International Normalized Ratio 2.67; Prothrombin Time Results 25.9 Sec (9.7-11.5)
[2018-04-27 04:54] LABS: Albumin, Blood 3.2 g/dL (3.4-5.0); Albumin/Globulin Ratio 1.1 (0.8-1.8); Bilirubin, Total 0.5 mg/dL (0.1-1.0); Bun/Creatinine Ratio 32.8 (12.0-20.0); Creatinine, Blood 1.25 mg/dL (0.40-1.00); Globulin, Blood 2.8 g/dL (2.2-4.0); Potassium, Blood 3.9 mmol/L (3.5-5.5)
--- NOTE | 2018-04-27 06:20 | NUR ---
SHIFT SUMMARY- PT HAS REMAINED AOX4 THROUGHOUT SHIFT. VSS. PLEASANT AND COOPERATIVE WITH CARE. PT CONTINUES TO AMBULATE INDEPENDENTLY IN ROOM WITHOUT DIFFICULTY. PT DENIES DYSPNEA AND DIZZINESS/LIGHTHEADEDNESS ON AMBULATION. O2 SATS HAVE REMAINED >90% ON RA. PT MEDICATED MULTIPLE TIMES FOR PAIN TO LOWER BACK, LEGS, AND NECK THAT RELIEVES WITH ORDERED MEDICATIONS. PT AWAITING DONATIONS ATTENDANT FOLLOW UP FOR MEDICATION ASSISTANCE AT HOME. HEART RHYTHM HAS REMAINED IN ATRIAL FIBRILLATION WITH A RATE IN THE 70-90'S THROUGHOUT MOST OF THE NIGHT. NO OTHER CHANGES NOTED FROM INITIAL ASSESSMENT. WILL CONTINUE TO MONITOR AND REPORT TO ONCOMING RN. BED IN LOW POSITION, CALL LIGHT IN REACH.
--- NOTE | 2018-04-27 18:15 | NUR ---
SHIFT SUMMARY PT A&OX4, VSS, TELE AFIB 100. TRANSFER FROM PCU AT 1530. DENIES PAIN, CP, SOB. DENIES N&V, XU PO. AMB INDEPENDENT TO [facility]. VOIDING WELL. WILL CTM & TX PER EMAR UNTIL REPORT GIVEN TO ONCOMING NOC RN.
[2018-04-28 05:10] LABS: International Normalized Ratio 2.6; Prothrombin Time Results 25.3 Sec (9.7-11.5)
--- NOTE | 2018-04-28 06:15 | NUR ---
SUMMARY NO ACUTE CHANGES NOTED THROUGH THE NIGHT. PAIN MANAGED WITH ULTRAM. HR REMAINS IN AFIB PER COMMUNITY MUSIC THERAPIST. PT DENIES CP/SOB. VSS. INDEPENDENT IN ROOM. CALL LIGHT IN REACH, WCTM
--- NOTE | 2018-04-28 06:55 | NUR ---
recvd report from previous rn nayla, pt sleeping in bed, call light within reach, bed in lowest position, bed rails up x 2
--- NOTE | 2018-04-28 07:28 | NUR ---
pt requested if she is going to be discharged today that possible it be done by noon, as her ride will be available then. pt a/0 x 4, pleasant/cooperative
--- NOTE | 2018-04-28 09:48 | NUR ---
PT received home o2 evaluation. RT Morris reports pt did well with maintained SPO2 >90%, currently 93% on RA.
--- NOTE | 2018-04-28 12:23 | NUR ---
removed peripheral iv wnl. provided pt with discharge instructions, printed materials. faxed manuel medication refill to [facility]. pt states understanding of follow up instructions, will call for follow up appointment with PCP. pt escorted to awaiting vehicle via wheelchair with belongings carried by pt's sister to vehicle.
[2018-05-21] MEDS ORDERED: Nitrostat0.4 MG SL (23:51)
[2018-05-21] MEDS ORDERED: Pepcid20 MG PO (23:51)
== END 2018-04-28 12:41 | disposition home or self-care (01) | DRG 309 ==
LOC: ER 20:58 → MEDS 20:59 → PCU 04-25 00:25 → MEDS 04-25 00:36 → PCU 04-25 00:47 → SURS 04-27 16:10
PROVIDERS: Emergency Medicine; Internal Medicine; Pharmacist; ADMIT Hospitalist
DX: I48.91 Unspecified atrial fibrillation (principal); J44.1 Chronic obstructive pulmonary disease with (acute) exacerbation; I50.22 Chronic systolic (congestive) heart failure; N18.3 Chronic kidney disease, stage 3 (moderate); I34.0 Nonrheumatic mitral (valve) insufficiency; F20.9 Schizophrenia, unspecified; F17.200 Nicotine dependence, unspecified, uncomplicated; Z99.81 Dependence on supplemental oxygen; Z88.2 Allergy status to sulfonamides; Z88.8 Allergy status to other drugs, medicaments and biological substances; Z79.01 Long term (current) use of anticoagulants; Z79.899 Other long term (current) drug therapy
CPT/HCPCS: 36415; 71046; 80048; 80053; 83735; 83880; 84484; 85025; 85610; 93005; 93010; 94640; 94760; 94761; 96365; 96366; 96375; 96376; 99285-25; G0378; J1160; J2930

== ENCOUNTER 2018-07-25 12:06 | Inpatient (IN) | payer MEDICARE ==
[~2018-07-25] VITALS: Ht 167.6 cm; Wt 77.1 kg
[~2018-07-25 12:06] MED LIST changes: +LISI20 PO; -SPIR25
[2018-07-25 13:15] LABS: BASOPHILS ABSOLUTE AUTO 0.08 K/mm3 (0.00-0.23); BASOPHILS PERCENT AUTO 1 % (0-2); EOSINOPHILS ABSOLUTE AUTO 0.04 K/mm3 (0.00-0.68); EOSINOPHILS PERCENT AUTO 1 % (0-6); Hematocrit 40.6 % (33.0-51.0); Hemoglobin 12.9 g/dL (11.5-16.0); IMMATURE GRAN ABSOLUTE AUTO 0.02 K/mm3 (0.00-0.10); IMMATURE GRAN PERCENT AUTO 0 % (0-1); LYMPHOCYTES PERCENT AUTO 18 % (21-46); MONOCYTES ABSOLUTE AUTO 0.82 K/mm3 (0.16-1.47); MONOCYTES PERCENT AUTO 10 % (4-13); Mean Corpuscular HGB 30.6 pg (26.0-34.0); Mean Corpuscular HGB Conc 31.8 g/dL (31.5-36.5); Mean Corpuscular Volume 96 fL (80-100); Mean Platelet Volume 10.9 fL (9.1-12.4); NEUTROPHILS ABSOLUTE AUTO 6.06 K/mm3 (1.96-9.15); NEUTROPHILS PERCENT AUTO 71 % (41-73); Platelet Count 387 K/mm3 (150-400); RDW Coefficient Variation 14.6 % (11.7-14.2); RDW Standard Deviation 51.4 fL (35.1-46.3); Red Blood Cell Count 4.21 M/mm3 (3.80-5.20); White Blood Cell Count 8.52 K/mm3 (4.00-11.30)
[2018-07-25 13:29] LABS: International Normalized Ratio 1.11; Prothrombin Time Results 11.7 Sec (9.7-11.5)
[2018-07-25] MEDS ORDERED: DILTIAZEM 24HR240 M1 PO (13:30)
[2018-07-25 13:31] LABS: Alanine Aminotransfer (ALT/SGP 19 U/L (12-78); Albumin, Blood 4.1 g/dL (3.4-5.0); Albumin/Globulin Ratio 1.1 (0.8-1.8); Alk Phos 96 U/L (50-136); Anion Gap 11 mmol/L (6-16); Aspartate Aminotrans (AST/SGOT 20 U/L (12-37); Bilirubin, Total 1.5 mg/dL (0.1-1.0); Blood Urea Nitrogen 24 mg/dL (8-24); Bun/Creatinine Ratio 15.8 (12.0-20.0); CO2, Blood 24 mmol/L (21-32); Calcium, Blood 9.6 mg/dL (8.5-10.1); Chloride, Blood 107 mmol/L (98-108); Creatinine, Blood 1.52 mg/dL (0.40-1.00); Globulin, Blood 3.6 g/dL (2.2-4.0); Glomerular Filtration Rate 36 (60-); Glucose, Blood 105 mg/dL (70-99); Potassium, Blood 3.6 mmol/L (3.5-5.5); Sodium, Blood 142 mmol/L (136-145); Total Protein, Blood 7.7 g/dL (6.4-8.2); Troponin I <0.015 ng/mL (0.000-0.040)
[2018-07-25] MEDS ORDERED: Pulmicort0.5 MG/2 M INH (13:31)
[2018-07-25] MEDS ORDERED: WARF5 PO (13:33)
--- NOTE | 2018-07-25 17:17 | NUR ---
ELEVATED HR AFTER SETTLING PT IN HER NEW ROOM. PT HR WAS TRENDING IN THE 150 BPM+. CARDIZME GTT INFUSING AT 15 MG.HR. BP ELEVATED. CALLED DR GARCIA, AFTER REVIEWING PT MED. REC, ORDER RECEIVED TO RESTART PT CARDIZEM CD 240MG THAT SHE HASN'T TAKEN FOR AT LEAST A WEEK. CONTINUE POT.
--- NOTE | 2018-07-25 23:20 | NUR ---
CARDIZEM TITRATED TO 10ML/HR; HEART RATE 100-110'S FROM 140'S AT SHIFT CHANGE; BP STABLE; NO OTHER ACUTE CHANGES; WILL CONTINUE TO MONITOR AND ASSESS UNTIL END OF SHIFT.
--- NOTE | 2018-07-26 03:21 | NUR ---
ASSUMED CARE AT 1900 FROM DANIEL STARR. PT IS ON CARDIZEM GTT; O2 > 95% ON RA; PT IS COOPERATIVE WITH CARE; REMINDED SHE CAN NOT GO OUTSIDE TO SMOKE; PT REMINDED SHE IS ON BEDREST; SLEPT 5 HRS BETWEEN INTERUPTIONS; WILL CONTINUE TO MONITOR AND ASSESS UNTIL HANDOFF TO DAY SHIFT RN.
[2018-07-26 04:11] LABS: BASOPHILS ABSOLUTE AUTO 0.06 K/mm3 (0.00-0.23); BASOPHILS PERCENT AUTO 1 % (0-2); EOSINOPHILS ABSOLUTE AUTO 0.37 K/mm3 (0.00-0.68); EOSINOPHILS PERCENT AUTO 5 % (0-6); Hematocrit 35.5 % (33.0-51.0); Hemoglobin 11.3 g/dL (11.5-16.0); IMMATURE GRAN ABSOLUTE AUTO 0.02 K/mm3 (0.00-0.10); IMMATURE GRAN PERCENT AUTO 0 % (0-1); LYMPHOCYTES ABSOLUTE AUTO 0.99 K/mm3 (0.84-5.20); LYMPHOCYTES PERCENT AUTO 14 % (21-46); MONOCYTES ABSOLUTE AUTO 0.57 K/mm3 (0.16-1.47); MONOCYTES PERCENT AUTO 8 % (4-13); Mean Corpuscular HGB 30.5 pg (26.0-34.0); Mean Corpuscular HGB Conc 31.8 g/dL (31.5-36.5); Mean Corpuscular Volume 96 fL (80-100); Mean Platelet Volume 10.8 fL (9.1-12.4); NEUTROPHILS PERCENT AUTO 71 % (41-73); Platelet Count 296 K/mm3 (150-400); RDW Coefficient Variation 14.6 % (11.7-14.2); RDW Standard Deviation 51.6 fL (35.1-46.3); Red Blood Cell Count 3.71 M/mm3 (3.80-5.20); White Blood Cell Count 7.01 K/mm3 (4.00-11.30)
[2018-07-26 04:29] LABS: Bun/Creatinine Ratio 18.5 (12.0-20.0); Calcium, Blood 8.9 mg/dL (8.5-10.1); Creatinine, Blood 1.24 mg/dL (0.40-1.00); International Normalized Ratio 1.13; Potassium, Blood 3.2 mmol/L (3.5-5.5); Prothrombin Time Results 11.8 Sec (9.7-11.5)
--- NOTE | 2018-07-26 06:34 | NUR ---
PT SLEPT SEVERAL HRS; UP TO BSC AT O630; HR TRENDING DOWN; WILL CONTINUE TO MONITOR AND ASSESS UNTIL HANDOFF TO DAY SHIFT RN.
--- NOTE | 2018-07-26 11:34 | NUR ---
Spiritual care visit conducted. Patient is sleeping when I entered patient's room and woke up abruptly at the sound of her name. Patient was very croggy and answered questions in short sentences. Patient said that she has a good family and friend support group but admitted to be nervous about the future. Patient did not want to elaborate on this nervousness but did consent to allowing me to pray for her. I provided prayer at that time. Patient voiced appreciation for my visit.
--- NOTE | 2018-07-26 15:05 | NUR ---
SHIFT NOTE: ASSUMED CARE OF PT AT 0700. RECEVIED REPORT FROM SAPNA SANCHEZ. PT IS ALERT AND ORIENTED X3 AND IS ABLE TO FOLLOW DIRECTIONS. PT IS CURRENTLY ON ROOM AIR AND OXYGENATION IS GREATER THAN 90%, HOWEVER, PT EXPERICENCES DYSPNEA ON EXCERTIONS. PT IS CURRENTLY RUNNING A-FIB WITH RVR WITH HR AVERAGING AT 98 BPM SITTING, AND 125-136 WITH EXCERTION PER TELE MONITOR.PT DENIES CP, HOWEVER, CLAIMS TO BE LIGHTHEADED. PT WAS INSTRUCTED TO USE CALL LIGHT WHEN ATTEMPTING TO AMBULATE TO BSC.PT HAS REQUESTED BREATHING TREATMENTS AND JUAN ANTONIO HUMPHREY WILL BE SPEAKING TO THE PHYSICAN TO GET THOSE ARRANGED. WILL CONTINUE TO MONITOR STATUS, CALL LIGHT WITHIN REACH
--- NOTE | 2018-07-26 18:52 | NUR ---
END OF SHIFT SUMMARY: PT HR IS STILL ELEVATED AND HAS NOT SHOWN MUCH IMPROVEMNT. WAS NOTIFIED AND NEW ORDERS WERE IMPLEMENTED. PT IS CURRENTLY IN A-FIB AND HR HAS BEEN AVERAGING THE 90'S WITH ELEVATIONS INTO THE 130'S. PT CONTINUES TO DENY CP AND IS CURRENLTY STATING SHE IS NO LONGER LIGHT HEADED. PT IS STILL EXPERIENCING DYSPNEA ON EXERTION, HOWEVER, HAS BEEN MAINTIANING 02 STATURATIONS ABOVE 90%. WILL CONTINUE TO MONITOR PT, UNTIL REPORT IS GIVEN TO GREEN MARKETING ANALYST. BED AT LOWEST LEVEL AND CALL LIGHT IS WITHIN REACH
--- NOTE | 2018-07-26 21:34 | NUR ---
ASSUMED CARE OF PT AT APPROXIMATELY 1930. PT ALERT AND ORIENTED. VS STABLE. HR IS AFIB IN THE 100'S. CARDIZEM GTT AT 10ML/H. BP STABLE. 02 SATS GREATHER THAN 90% ON RA. PT DENIES ANY PAIN. NO OTHER COMPLAINTS AT THIS TIME. REPORT GIVEN TO MIRIAN SANCHEZ.
[2018-07-27 03:59] LABS: Hematocrit 37.2 % (33.0-51.0); Hemoglobin 11.7 g/dL (11.5-16.0); Mean Corpuscular HGB 30.5 pg (26.0-34.0); Mean Corpuscular HGB Conc 31.5 g/dL (31.5-36.5); Mean Corpuscular Volume 97 fL (80-100); Mean Platelet Volume 10.7 fL (9.1-12.4); Platelet Count 320 K/mm3 (150-400); RDW Coefficient Variation 14.6 % (11.7-14.2); RDW Standard Deviation 51.3 fL (35.1-46.3); Red Blood Cell Count 3.84 M/mm3 (3.80-5.20); White Blood Cell Count 6.18 K/mm3 (4.00-11.30)
[2018-07-27 04:19] LABS: Bun/Creatinine Ratio 14.5 (12.0-20.0); Calcium, Blood 9.1 mg/dL (8.5-10.1); Creatinine, Blood 1.66 mg/dL (0.40-1.00); Potassium, Blood 3.5 mmol/L (3.5-5.5)
[2018-07-27 04:20] LABS: International Normalized Ratio 1.13; Prothrombin Time Results 11.8 Sec (9.7-11.5)
--- NOTE | 2018-07-27 06:22 | NUR ---
SHIFT SUMMARY PT SLEEPING IN ROOM COMFORTABLY AT THIS TIME. NO ACUTE CHANGES IN STATUS LAST NIGHT. PT CARDIEZEM REMAINS AT 10, D/T HR TRENDING BETWEEN 80-110'S. PT IS INDEPENDENT IN ROOM. RESP EVEN UNLBAORED ON RA W/ SATS >92%. PT DENIES ANY PAIN. DENIES OTHER NEEDS. CALL LIGHT IS IN REACH.
--- NOTE | 2018-07-27 11:48 | NUR ---
BEGINNING OF SHIFT Assumed care at 0700. Report received from Sarah SANCHEZ. Pt independent in room to [facility]. At start of shift, pt on 5 mg/hr cardizem drip. Metoprolol given per new orders. Pt states she feels constipated and has not had a bowel movement in several days. Bowel care discussed with pt; pt is agreeable. Plan of care discussed with Dr Arechiga. Provider stated to stop cardizem drip. Discussed average heart rate with provider. At this time, pt's hr is now averaging between 75 and 85. Verbal update given to Dr Arechiga. Patient is now medical floor status, with telemetry to remain in place. Pt has had one bowel movement since bowel care medications given.
--- NOTE | 2018-07-27 12:11 | NUR ---
SKIN CARE During skin assessment, powder added to abdominal and perineal skin folds. These areas were cleaned prior to addition of powder. Folds were moist, however there was no evidence of yeast. Pt educated on reason for powder application, he verbalized understanding.
--- NOTE | 2018-07-27 18:50 | NUR ---
SHIFT SUMMARY No acute changes t/o shift. Pt remains independent to bedside commode. HR is averaging between 80 and 90. Will continue to closely monitor until care handoff and bedside report with oncoming RN.
[2018-07-28 06:23] LABS: International Normalized Ratio 1.54; Prothrombin Time Results 15.7 Sec (9.7-11.5)
[2018-07-28 06:29] LABS: Bun/Creatinine Ratio 13.8 (12.0-20.0); Creatinine, Blood 2.24 mg/dL (0.40-1.00); Potassium, Blood 3.8 mmol/L (3.5-5.5)
--- NOTE | 2018-07-28 06:58 | NUR ---
AUDIT SPECIALIST SUMMARY NO ACUTE CHANGES THIS SHIFT. PT AAOX4 AND INDEPENDENT TO BSC. HR WELL CONTROLLED TONIGHT. AFIB IN 90'S AT START OF SHIFT, AVERAGING 70-80'S AFTER 2100 DOSE OF METOPROLOL. HR TRENDING BACK TO 90'S AT END OF SHIFT. VSS, WILL CONTINUE TO MONITOR.
[2018-07-28] MEDS ORDERED: Aspir 8181 MG PO (09:23)
[2018-07-28] MEDS ORDERED: Nicoderm Cq1 EAC1 TOP (09:24)
[2018-07-28] MEDS ORDERED: METO50 PO (09:25)
--- NOTE | 2018-07-28 11:00 | NUR ---
PATIENT D/C'D BACK TO [facility] WITH SISTER YESI. D/C' INSTRUCTIONA AND EDUCATION DISCUSSED WITH PATIENT AND COPY PROVIDED. RX MEDICATIONS FAXED TO [facility] AND VOUCHER GIVEN TO INTERNET PROGRAMMER A DAYS WORTH OF MEDICATIONS AT [facility] [employer]. PATIENT DENIES ANY FURTHER QUESTIONS OR CONCERNS.
== END 2018-07-28 11:10 | disposition home or self-care (01) | DRG 308 ==
LOC: ER 12:06 → PCU 14:20
PROVIDERS: Emergency Medicine; Internal Medicine; ADMIT Internal Medicine
DX: I48.2 Chronic atrial fibrillation (principal); I50.23 Acute on chronic systolic (congestive) heart failure; I13.0 Hypertensive heart and chronic kidney disease with heart failure and stage 1 through stage 4 chronic kidney disease, or unspecified chronic kidney disease; N18.3 Chronic kidney disease, stage 3 (moderate); F17.210 Nicotine dependence, cigarettes, uncomplicated; F20.9 Schizophrenia, unspecified; R25.1 Tremor, unspecified; J44.9 Chronic obstructive pulmonary disease, unspecified; I34.0 Nonrheumatic mitral (valve) insufficiency; K59.09 Other constipation; Z91.14 Patient's other noncompliance with medication regimen; Z79.01 Long term (current) use of anticoagulants; Z79.51 Long term (current) use of inhaled steroids; Z79.899 Other long term (current) drug therapy; Z88.2 Allergy status to sulfonamides; Z88.8 Allergy status to other drugs, medicaments and biological substances
CPT/HCPCS: 36415; 71045; 80048; 80053; 83735; 83880; 84484; 85025; 85027; 85610; 93005; 93010; 94640; 94760; 96365; 96376; 99285-25; J1650; J2405

== ENCOUNTER 2018-08-17 19:29 | Inpatient (IN) | payer MEDICARE ==
[~2018-08-17] VITALS: Ht 167.6 cm; Wt 96.6 kg
[~2018-08-17 19:29] MED LIST changes: -ALBU3IS; +ALBU3IS NEB; +Aspir 8181 MG PO; +DILTIAZEM 24HR240 M1 PO; +METO50 PO; +Nicoderm Cq1 EAC1 TOP; +Pulmicort0.5 MG/2 M INH
[2018-08-17 19:46] LABS: Source, Urine Clean Catch
[2018-08-17 19:51] LABS: Bilirubin, Urine Neg (Neg); Blood, Urine 1+ (Neg); Glucose Qualitative, Urine Neg (Neg); Ketones, Urine Neg (Neg); Leukocyte Esterase, Urine 1+ (Neg); Nitrite, Urine Pos (Neg); Protein, Urine 1+ (Neg); Urobilinogen, Urine NORM (Normal)
[2018-08-17 19:56] LABS: Appearance, Urine Hazy (Clear); Color, Urine Yellow (P-Yellow)
[2018-08-17 19:57] LABS: Bacteria Many /hpf; Red Blood Cells, Urine 0-2 /hpf (0-2); Squamous Epithelial Cells Many /hpf (Few)
[2018-08-17 19:59] LABS: BASOPHILS ABSOLUTE AUTO 0.06 K/mm3 (0.00-0.23); BASOPHILS PERCENT AUTO 1 % (0-2); EOSINOPHILS PERCENT AUTO 3 % (0-6); Hematocrit 38.2 % (33.0-51.0); Hemoglobin 12.2 g/dL (11.5-16.0); IMMATURE GRAN ABSOLUTE AUTO 0.02 K/mm3 (0.00-0.10); IMMATURE GRAN PERCENT AUTO 0 % (0-1); LYMPHOCYTES ABSOLUTE AUTO 1.27 K/mm3 (0.84-5.20); LYMPHOCYTES PERCENT AUTO 16 % (21-46); MONOCYTES ABSOLUTE AUTO 0.45 K/mm3 (0.16-1.47); MONOCYTES PERCENT AUTO 6 % (4-13); Mean Corpuscular HGB 29.8 pg (26.0-34.0); Mean Corpuscular HGB Conc 31.9 g/dL (31.5-36.5); Mean Corpuscular Volume 93 fL (80-100); Mean Platelet Volume 10.4 fL (9.1-12.4); NEUTROPHILS ABSOLUTE AUTO 5.85 K/mm3 (1.96-9.15); NEUTROPHILS PERCENT AUTO 75 % (41-73); Platelet Count 292 K/mm3 (150-400); RDW Coefficient Variation 16.2 % (11.7-14.2); RDW Standard Deviation 55.2 fL (35.1-46.3); Red Blood Cell Count 4.09 M/mm3 (3.80-5.20); White Blood Cell Count 7.85 K/mm3 (4.00-11.30)
[2018-08-17 20:32] LABS: Troponin I <0.015 ng/mL (0.000-0.040)
[2018-08-17 20:33] LABS: Alanine Aminotransfer (ALT/SGP 46 U/L (12-78); Albumin, Blood 3.8 g/dL (3.4-5.0); Albumin/Globulin Ratio 1.2 (0.8-1.8); Alk Phos 110 U/L (50-136); Anion Gap 11 mmol/L (6-16); Aspartate Aminotrans (AST/SGOT 45 U/L (12-37); Bilirubin, Total 0.6 mg/dL (0.1-1.0); Blood Urea Nitrogen 23 mg/dL (8-24); Bun/Creatinine Ratio 17.7 (12.0-20.0); CO2, Blood 22 mmol/L (21-32); Calcium, Blood 8.6 mg/dL (8.5-10.1); Chloride, Blood 99 mmol/L (98-108); Globulin, Blood 3.2 g/dL (2.2-4.0); Glomerular Filtration Rate 43 (60-); Glucose, Blood 101 mg/dL (70-99); Potassium, Blood 3.8 mmol/L (3.5-5.5); Sodium, Blood 132 mmol/L (136-145)
[2018-08-17 20:34] LABS: International Normalized Ratio 1.01; Prothrombin Time Results 10.7 Sec (9.7-11.5)
[2018-08-18 04:36] LABS: Hemoglobin 12.4 g/dL (11.5-16.0); Mean Corpuscular HGB 29.7 pg (26.0-34.0); Mean Corpuscular Volume 96 fL (80-100); Platelet Count 315 K/mm3 (150-400); RDW Coefficient Variation 16.4 % (11.7-14.2); RDW Standard Deviation 57.2 fL (35.1-46.3); Red Blood Cell Count 4.18 M/mm3 (3.80-5.20); White Blood Cell Count 9.94 K/mm3 (4.00-11.30)
[2018-08-18 04:55] LABS: International Normalized Ratio 1.09; Prothrombin Time Results 11.5 Sec (9.7-11.5)
[2018-08-18 04:56] LABS: Bun/Creatinine Ratio 16.3 (12.0-20.0); Calcium, Blood 8.9 mg/dL (8.5-10.1); Creatinine, Blood 1.53 mg/dL (0.40-1.00); Potassium, Blood 4.4 mmol/L (3.5-5.5)
[2018-08-19 04:21] LABS: Albumin, Blood 3.9 g/dL (3.4-5.0); Anion Gap 13 mmol/L (6-16); Blood Urea Nitrogen 42 mg/dL (8-24); Bun/Creatinine Ratio 25.8 (12.0-20.0); CO2, Blood 19 mmol/L (21-32); Calcium, Blood 9.1 mg/dL (8.5-10.1); Chloride, Blood 102 mmol/L (98-108); Creatinine, Blood 1.63 mg/dL (0.40-1.00); Glomerular Filtration Rate 33 (60-); Glucose, Blood 166 mg/dL (70-99); Phosphorus, Blood 4.6 mg/dL (2.5-4.9); Sodium, Blood 134 mmol/L (136-145)
[2018-08-19 11:21] LABS: International Normalized Ratio 1.43; Prothrombin Time Results 14.7 Sec (9.7-11.5)
[2018-08-20 04:28] LABS: International Normalized Ratio 2.69; Prothrombin Time Results 26.1 Sec (9.7-11.5)
[2018-08-20 04:30] LABS: Albumin, Blood 3.3 g/dL (3.4-5.0); Anion Gap 15 mmol/L (6-16); Blood Urea Nitrogen 55 mg/dL (8-24); Bun/Creatinine Ratio 20.4 (12.0-20.0); CO2, Blood 14 mmol/L (21-32); Calcium, Blood 8.5 mg/dL (8.5-10.1); Chloride, Blood 104 mmol/L (98-108); Glomerular Filtration Rate 19 (60-); Glucose, Blood 93 mg/dL (70-99); Phosphorus, Blood 6.2 mg/dL (2.5-4.9); Potassium, Blood 5.4 mmol/L (3.5-5.5); Sodium, Blood 133 mmol/L (136-145)
[2018-08-20 08:11] LABS: Albumin, Blood 3.8 g/dL (3.4-5.0); Anion Gap 18 mmol/L (6-16); Blood Urea Nitrogen 55 mg/dL (8-24); Bun/Creatinine Ratio 19.2 (12.0-20.0); CO2, Blood 16 mmol/L (21-32); Calcium, Blood 8.8 mg/dL (8.5-10.1); Chloride, Blood 99 mmol/L (98-108); Creatinine, Blood 2.87 mg/dL (0.40-1.00); Glomerular Filtration Rate 17 (60-); Glucose, Blood 86 mg/dL (70-99); Phosphorus, Blood 7.2 mg/dL (2.5-4.9); Potassium, Blood 5.4 mmol/L (3.5-5.5); Sodium, Blood 133 mmol/L (136-145)
[2018-08-20 09:14] LABS: BASOPHILS ABSOLUTE AUTO 0.03 K/mm3 (0.00-0.23); BASOPHILS PERCENT AUTO 0 % (0-2); EOSINOPHILS PERCENT AUTO 0 % (0-6); Hematocrit 38.8 % (33.0-51.0); Hemoglobin 11.7 g/dL (11.5-16.0); IMMATURE GRAN ABSOLUTE AUTO 0.12 K/mm3 (0.00-0.10); IMMATURE GRAN PERCENT AUTO 1 % (0-1); LYMPHOCYTES ABSOLUTE AUTO 0.56 K/mm3 (0.84-5.20); LYMPHOCYTES PERCENT AUTO 3 % (21-46); MONOCYTES ABSOLUTE AUTO 0.82 K/mm3 (0.16-1.47); MONOCYTES PERCENT AUTO 4 % (4-13); Mean Corpuscular HGB 29.8 pg (26.0-34.0); Mean Corpuscular HGB Conc 30.2 g/dL (31.5-36.5); NEUTROPHILS ABSOLUTE AUTO 21.04 K/mm3 (1.96-9.15); NEUTROPHILS PERCENT AUTO 93 % (41-73); NRBC ABSOLUTE 0.05 K/mm3 (0.00-0.02); NRBC Auto 0.2 /100 WBC (0.0-0.2); RDW Coefficient Variation 17.3 % (11.7-14.2); RDW Standard Deviation 61.7 fL (35.1-46.3); Red Blood Cell Count 3.93 M/mm3 (3.80-5.20); White Blood Cell Count 22.57 K/mm3 (4.00-11.30)
[2018-08-20 09:16] LABS: Mean Corpuscular Volume 99 fL (80-100); Mean Platelet Volume 11.3 fL (9.1-12.4); Platelet Count 292 K/mm3 (150-400)
[2018-08-20 16:18] LABS: Albumin, Blood 3.8 g/dL (3.4-5.0); Anion Gap 16 mmol/L (6-16); Blood Urea Nitrogen 64 mg/dL (8-24); Bun/Creatinine Ratio 19.6 (12.0-20.0); CO2, Blood 14 mmol/L (21-32); Calcium, Blood 8.7 mg/dL (8.5-10.1); Chloride, Blood 101 mmol/L (98-108); Creatinine, Blood 3.26 mg/dL (0.40-1.00); Glomerular Filtration Rate 15 (60-); Glucose, Blood 99 mg/dL (70-99); Phosphorus, Blood 7.5 mg/dL (2.5-4.9); Potassium, Blood 6.1 mmol/L (3.5-5.5); Sodium, Blood 131 mmol/L (136-145)
[2018-08-20 18:41] LABS: Source, Urine Catheter
[2018-08-20 18:51] LABS: PCO2 Arterial 25.7 mmHg (35-45); PO2 Arterial 82.9 mmHg (80-100); pH Blood Arterial 7.28 (7.35-7.45)
[2018-08-20 18:54] LABS: Appearance, Urine Hazy (Clear); Bilirubin, Urine Neg (Neg); Blood, Urine 1+ (Neg); Color, Urine Yellow (P-Yellow); Glucose Qualitative, Urine Neg (Neg); Ketones, Urine Neg (Neg); Leukocyte Esterase, Urine 1+ (Neg); Nitrite, Urine Neg (Neg); Protein, Urine 2+ (Neg); Urobilinogen, Urine NORM (Normal)
[2018-08-20 19:39] LABS: Red Blood Cells, Urine 0-2 /hpf (0-2); Squamous Epithelial Cells Many /hpf (Few)
[2018-08-20 19:40] LABS: Bacteria Few /hpf; Mucus Light (0-Heavy)
[2018-08-20 19:55] LABS: Albumin, Blood 3.5 g/dL (3.4-5.0); Anion Gap 14 mmol/L (6-16); Blood Urea Nitrogen 61 mg/dL (8-24); Bun/Creatinine Ratio 18.9 (12.0-20.0); CO2, Blood 17 mmol/L (21-32); Calcium, Blood 8.2 mg/dL (8.5-10.1); Chloride, Blood 104 mmol/L (98-108); Creatinine, Blood 3.22 mg/dL (0.40-1.00); Glomerular Filtration Rate 15 (60-); Glucose, Blood 104 mg/dL (70-99); Phosphorus, Blood 6.9 mg/dL (2.5-4.9); Potassium, Blood 4.7 mmol/L (3.5-5.5); Sodium, Blood 135 mmol/L (136-145)
[2018-08-21 04:48] LABS: Prothrombin Time Results 42.4 Sec (9.7-11.5)
[2018-08-21 04:57] LABS: International Normalized Ratio 4.59
[2018-08-21 09:32] LABS: BASOPHILS ABSOLUTE AUTO 0.01 K/mm3 (0.00-0.23); BASOPHILS PERCENT AUTO 0 % (0-2); EOSINOPHILS PERCENT AUTO 0 % (0-6); Hematocrit 33.8 % (33.0-51.0); Hemoglobin 10.7 g/dL (11.5-16.0); IMMATURE GRAN ABSOLUTE AUTO 0.08 K/mm3 (0.00-0.10); IMMATURE GRAN PERCENT AUTO 1 % (0-1); LYMPHOCYTES ABSOLUTE AUTO 0.42 K/mm3 (0.84-5.20); LYMPHOCYTES PERCENT AUTO 3 % (21-46); MONOCYTES ABSOLUTE AUTO 0.79 K/mm3 (0.16-1.47); MONOCYTES PERCENT AUTO 6 % (4-13); Mean Corpuscular HGB 30.1 pg (26.0-34.0); Mean Corpuscular HGB Conc 31.7 g/dL (31.5-36.5); Mean Platelet Volume 11.6 fL (9.1-12.4); NEUTROPHILS ABSOLUTE AUTO 12.57 K/mm3 (1.96-9.15); NEUTROPHILS PERCENT AUTO 91 % (41-73); NRBC ABSOLUTE 0.38 K/mm3 (0.00-0.02); NRBC Auto 2.7 /100 WBC (0.0-0.2); Platelet Count 224 K/mm3 (150-400); RDW Coefficient Variation 17.1 % (11.7-14.2); RDW Standard Deviation 58.9 fL (35.1-46.3); Red Blood Cell Count 3.56 M/mm3 (3.80-5.20); White Blood Cell Count 13.87 K/mm3 (4.00-11.30)
[2018-08-21 09:36] LABS: Mean Corpuscular Volume 95 fL (80-100)
[2018-08-21 09:46] LABS: Albumin, Blood 3.3 g/dL (3.4-5.0); Anion Gap 12 mmol/L (6-16); Blood Urea Nitrogen 71 mg/dL (8-24); Bun/Creatinine Ratio 21.2 (12.0-20.0); CO2, Blood 22 mmol/L (21-32); Calcium, Blood 7.9 mg/dL (8.5-10.1); Chloride, Blood 98 mmol/L (98-108); Creatinine, Blood 3.35 mg/dL (0.40-1.00); Glomerular Filtration Rate 15 (60-); Glucose, Blood 171 mg/dL (70-99); Phosphorus, Blood 5.9 mg/dL (2.5-4.9); Potassium, Blood 4.6 mmol/L (3.5-5.5); Sodium, Blood 132 mmol/L (136-145)
[2018-08-22 04:47] LABS: BASOPHILS ABSOLUTE AUTO 0.01 K/mm3 (0.00-0.23); BASOPHILS PERCENT AUTO 0 % (0-2); EOSINOPHILS PERCENT AUTO 0 % (0-6); Hematocrit 35.8 % (33.0-51.0); Hemoglobin 11.8 g/dL (11.5-16.0); IMMATURE GRAN ABSOLUTE AUTO 0.09 K/mm3 (0.00-0.10); IMMATURE GRAN PERCENT AUTO 1 % (0-1); LYMPHOCYTES PERCENT AUTO 4 % (21-46); MONOCYTES ABSOLUTE AUTO 1.49 K/mm3 (0.16-1.47); MONOCYTES PERCENT AUTO 9 % (4-13); Mean Corpuscular HGB 30.6 pg (26.0-34.0); Mean Corpuscular Volume 93 fL (80-100); Mean Platelet Volume 11.6 fL (9.1-12.4); NEUTROPHILS ABSOLUTE AUTO 13.91 K/mm3 (1.96-9.15); NEUTROPHILS PERCENT AUTO 86 % (41-73); NRBC ABSOLUTE 0.69 K/mm3 (0.00-0.02); NRBC Auto 4.3 /100 WBC (0.0-0.2); Platelet Count 252 K/mm3 (150-400); RDW Coefficient Variation 16.7 % (11.7-14.2); RDW Standard Deviation 55.8 fL (35.1-46.3); Red Blood Cell Count 3.86 M/mm3 (3.80-5.20)
[2018-08-22 05:10] LABS: Albumin, Blood 3.4 g/dL (3.4-5.0); Albumin/Globulin Ratio 1.3 (0.8-1.8); Alk Phos 100 U/L (50-136); Anion Gap 11 mmol/L (6-16); Bilirubin, Total 0.7 mg/dL (0.1-1.0); Blood Urea Nitrogen 75 mg/dL (8-24); Bun/Creatinine Ratio 25.3 (12.0-20.0); CO2, Blood 23 mmol/L (21-32); Chloride, Blood 98 mmol/L (98-108); Creatinine, Blood 2.97 mg/dL (0.40-1.00); Globulin, Blood 2.6 g/dL (2.2-4.0); Glomerular Filtration Rate 17 (60-); Glucose, Blood 127 mg/dL (70-99); International Normalized Ratio 4.91; Phosphorus, Blood 5.3 mg/dL (2.5-4.9); Potassium, Blood 4.9 mmol/L (3.5-5.5); Sodium, Blood 132 mmol/L (136-145)
[2018-08-22 05:48] LABS: Alanine Aminotransfer (ALT/SGP 1371 U/L (12-78); Aspartate Aminotrans (AST/SGOT 1029 U/L (12-37)
[2018-08-23 04:35] LABS: BASOPHILS ABSOLUTE AUTO 0.03 K/mm3 (0.00-0.23); BASOPHILS PERCENT AUTO 0 % (0-2); EOSINOPHILS PERCENT AUTO 0 % (0-6); Hematocrit 36.2 % (33.0-51.0); Hemoglobin 11.8 g/dL (11.5-16.0); IMMATURE GRAN ABSOLUTE AUTO 0.11 K/mm3 (0.00-0.10); IMMATURE GRAN PERCENT AUTO 1 % (0-1); LYMPHOCYTES ABSOLUTE AUTO 1.36 K/mm3 (0.84-5.20); LYMPHOCYTES PERCENT AUTO 8 % (21-46); MONOCYTES ABSOLUTE AUTO 1.74 K/mm3 (0.16-1.47); MONOCYTES PERCENT AUTO 10 % (4-13); Mean Corpuscular HGB 30.3 pg (26.0-34.0); Mean Corpuscular HGB Conc 32.6 g/dL (31.5-36.5); Mean Corpuscular Volume 93 fL (80-100); Mean Platelet Volume 11.6 fL (9.1-12.4); NEUTROPHILS PERCENT AUTO 81 % (41-73); NRBC ABSOLUTE 0.85 K/mm3 (0.00-0.02); Platelet Count 268 K/mm3 (150-400); RDW Coefficient Variation 16.5 % (11.7-14.2); RDW Standard Deviation 55.9 fL (35.1-46.3); White Blood Cell Count 17.04 K/mm3 (4.00-11.30)
[2018-08-23 04:59] LABS: Albumin, Blood 3.3 g/dL (3.4-5.0); Albumin/Globulin Ratio 1.3 (0.8-1.8); Alk Phos 120 U/L (50-136); Anion Gap 8 mmol/L (6-16); Aspartate Aminotrans (AST/SGOT 487 U/L (12-37); Bilirubin, Direct 0.5 mg/dL (0.0-0.3); Bilirubin, Indirect 0.3 mg/dL (0.1-0.7); Bilirubin, Total 0.8 mg/dL (0.1-1.0); Blood Urea Nitrogen 70 mg/dL (8-24); Bun/Creatinine Ratio 30.2 (12.0-20.0); CO2, Blood 25 mmol/L (21-32); Calcium, Blood 8.1 mg/dL (8.5-10.1); Chloride, Blood 99 mmol/L (98-108); Creatinine, Blood 2.32 mg/dL (0.40-1.00); Globulin, Blood 2.6 g/dL (2.2-4.0); Glomerular Filtration Rate 22 (60-); Glucose, Blood 122 mg/dL (70-99); Phosphorus, Blood 4.7 mg/dL (2.5-4.9); Potassium, Blood 5.1 mmol/L (3.5-5.5); Sodium, Blood 132 mmol/L (136-145); Total Protein, Blood 5.9 g/dL (6.4-8.2)
[2018-08-23 05:00] LABS: Alanine Aminotransfer (ALT/SGP 1109 U/L (12-78)
[2018-08-23 05:01] LABS: Prothrombin Time Results 38.8 Sec (9.7-11.5)
[2018-08-23 05:03] LABS: International Normalized Ratio 4.17
[2018-08-24 03:54] LABS: International Normalized Ratio 2.66; Prothrombin Time Results 25.8 Sec (9.7-11.5)
[2018-08-24 04:12] LABS: Albumin, Blood 3.4 g/dL (3.4-5.0); Albumin/Globulin Ratio 1.3 (0.8-1.8); Bilirubin, Total 0.8 mg/dL (0.1-1.0); Bun/Creatinine Ratio 35.1 (12.0-20.0); Calcium, Blood 8.4 mg/dL (8.5-10.1); Creatinine, Blood 1.88 mg/dL (0.40-1.00); Globulin, Blood 2.6 g/dL (2.2-4.0); Potassium, Blood 5.3 mmol/L (3.5-5.5)
[2018-08-25 04:07] LABS: International Normalized Ratio 1.75; Prothrombin Time Results 17.6 Sec (9.7-11.5)
[2018-08-25 04:14] LABS: Albumin, Blood 3.5 g/dL (3.4-5.0); Anion Gap 8 mmol/L (6-16); Blood Urea Nitrogen 63 mg/dL (8-24); Bun/Creatinine Ratio 39.6 (12.0-20.0); CO2, Blood 26 mmol/L (21-32); Calcium, Blood 8.6 mg/dL (8.5-10.1); Chloride, Blood 99 mmol/L (98-108); Creatinine, Blood 1.59 mg/dL (0.40-1.00); Glomerular Filtration Rate 34 (60-); Glucose, Blood 168 mg/dL (70-99); Potassium, Blood 5.8 mmol/L (3.5-5.5); Sodium, Blood 133 mmol/L (136-145)
[2018-08-25 14:09] LABS: Source, Urine Catheter
[2018-08-25 14:46] LABS: Albumin, Blood 3.3 g/dL (3.4-5.0); Anion Gap 10 mmol/L (6-16); Blood Urea Nitrogen 60 mg/dL (8-24); Bun/Creatinine Ratio 42.9 (12.0-20.0); CO2, Blood 23 mmol/L (21-32); Calcium, Blood 8.6 mg/dL (8.5-10.1); Chloride, Blood 99 mmol/L (98-108); Glomerular Filtration Rate 40 (60-); Glucose, Blood 145 mg/dL (70-99); Phosphorus, Blood 3.8 mg/dL (2.5-4.9); Potassium, Blood 6.4 mmol/L (3.5-5.5); Sodium, Blood 132 mmol/L (136-145)
[2018-08-25 14:50] LABS: Bilirubin, Urine Neg (Neg); Blood, Urine Neg (Neg); Glucose Qualitative, Urine Neg (Neg); Ketones, Urine Neg (Neg); Leukocyte Esterase, Urine Neg (Neg); Nitrite, Urine Neg (Neg); Protein, Urine Neg (Neg); Urobilinogen, Urine NORM (Normal)
[2018-08-25 15:03] LABS: Appearance, Urine Clear (Clear); Color, Urine Yellow (P-Yellow)
[2018-08-25 19:23] LABS: Albumin, Blood 3.4 g/dL (3.4-5.0); Anion Gap 9 mmol/L (6-16); Blood Urea Nitrogen 59 mg/dL (8-24); Bun/Creatinine Ratio 40.1 (12.0-20.0); CO2, Blood 25 mmol/L (21-32); Calcium, Blood 8.9 mg/dL (8.5-10.1); Chloride, Blood 98 mmol/L (98-108); Creatinine, Blood 1.47 mg/dL (0.40-1.00); Glomerular Filtration Rate 38 (60-); Glucose, Blood 153 mg/dL (70-99); Phosphorus, Blood 3.6 mg/dL (2.5-4.9); Potassium, Blood 5.1 mmol/L (3.5-5.5); Sodium, Blood 132 mmol/L (136-145)
[2018-08-26 04:41] LABS: International Normalized Ratio 1.65; Prothrombin Time Results 16.7 Sec (9.7-11.5)
[2018-08-26 09:24] LABS: Albumin, Blood 3.2 g/dL (3.4-5.0); Anion Gap 7 mmol/L (6-16); Blood Urea Nitrogen 59 mg/dL (8-24); Bun/Creatinine Ratio 43.1 (12.0-20.0); CO2, Blood 25 mmol/L (21-32); Calcium, Blood 8.8 mg/dL (8.5-10.1); Chloride, Blood 100 mmol/L (98-108); Creatinine, Blood 1.37 mg/dL (0.40-1.00); Glomerular Filtration Rate 41 (60-); Glucose, Blood 93 mg/dL (70-99); Phosphorus, Blood 3.8 mg/dL (2.5-4.9); Potassium, Blood 5.2 mmol/L (3.5-5.5); Sodium, Blood 132 mmol/L (136-145)
[2018-08-27 05:22] LABS: BASOPHILS ABSOLUTE AUTO 0.02 K/mm3 (0.00-0.23); BASOPHILS PERCENT AUTO 0 % (0-2); EOSINOPHILS ABSOLUTE AUTO 0.02 K/mm3 (0.00-0.68); EOSINOPHILS PERCENT AUTO 0 % (0-6); Hematocrit 37.7 % (33.0-51.0); Hemoglobin 12.2 g/dL (11.5-16.0); IMMATURE GRAN ABSOLUTE AUTO 0.16 K/mm3 (0.00-0.10); IMMATURE GRAN PERCENT AUTO 1 % (0-1); LYMPHOCYTES ABSOLUTE AUTO 1.24 K/mm3 (0.84-5.20); LYMPHOCYTES PERCENT AUTO 6 % (21-46); MONOCYTES PERCENT AUTO 8 % (4-13); Mean Corpuscular HGB 29.4 pg (26.0-34.0); Mean Corpuscular HGB Conc 32.4 g/dL (31.5-36.5); Mean Corpuscular Volume 91 fL (80-100); Mean Platelet Volume 10.7 fL (9.1-12.4); NEUTROPHILS ABSOLUTE AUTO 19.16 K/mm3 (1.96-9.15); NEUTROPHILS PERCENT AUTO 86 % (41-73); NRBC ABSOLUTE 0.08 K/mm3 (0.00-0.02); NRBC Auto 0.4 /100 WBC (0.0-0.2); Platelet Count 296 K/mm3 (150-400); RDW Coefficient Variation 16.9 % (11.7-14.2); RDW Standard Deviation 56.2 fL (35.1-46.3); Red Blood Cell Count 4.15 M/mm3 (3.80-5.20)
[2018-08-27 05:37] LABS: International Normalized Ratio 1.9
[2018-08-27 05:53] LABS: Alanine Aminotransfer (ALT/SGP 413 U/L (12-78); Albumin, Blood 2.9 g/dL (3.4-5.0); Albumin/Globulin Ratio 1.2 (0.8-1.8); Alk Phos 117 U/L (50-136); Anion Gap 7 mmol/L (6-16); Aspartate Aminotrans (AST/SGOT 59 U/L (12-37); Bilirubin, Direct 0.4 mg/dL (0.0-0.3); Bilirubin, Indirect 0.5 mg/dL (0.1-0.7); Bilirubin, Total 0.9 mg/dL (0.1-1.0); Blood Urea Nitrogen 62 mg/dL (8-24); Bun/Creatinine Ratio 44.6 (12.0-20.0); CO2, Blood 30 mmol/L (21-32); Calcium, Blood 8.9 mg/dL (8.5-10.1); Chloride, Blood 96 mmol/L (98-108); Creatinine, Blood 1.39 mg/dL (0.40-1.00); Globulin, Blood 2.5 g/dL (2.2-4.0); Glomerular Filtration Rate 40 (60-); Glucose, Blood 110 mg/dL (70-99); Phosphorus, Blood 3.5 mg/dL (2.5-4.9); Potassium, Blood 4.7 mmol/L (3.5-5.5); Sodium, Blood 133 mmol/L (136-145); Total Protein, Blood 5.4 g/dL (6.4-8.2)
[2018-08-27 06:00] LABS: Digoxin (Lanoxin) 2.08 ug/mL (0.80-2.00)
[2018-08-28 04:52] LABS: BASOPHILS ABSOLUTE AUTO 0.01 K/mm3 (0.00-0.23); BASOPHILS PERCENT AUTO 0 % (0-2); EOSINOPHILS ABSOLUTE AUTO 0.05 K/mm3 (0.00-0.68); EOSINOPHILS PERCENT AUTO 0 % (0-6); Hematocrit 35.9 % (33.0-51.0); Hemoglobin 11.7 g/dL (11.5-16.0); IMMATURE GRAN ABSOLUTE AUTO 0.08 K/mm3 (0.00-0.10); IMMATURE GRAN PERCENT AUTO 1 % (0-1); LYMPHOCYTES ABSOLUTE AUTO 1.37 K/mm3 (0.84-5.20); LYMPHOCYTES PERCENT AUTO 8 % (21-46); MONOCYTES ABSOLUTE AUTO 1.53 K/mm3 (0.16-1.47); MONOCYTES PERCENT AUTO 9 % (4-13); Mean Corpuscular HGB 29.6 pg (26.0-34.0); Mean Corpuscular HGB Conc 32.6 g/dL (31.5-36.5); Mean Corpuscular Volume 91 fL (80-100); Mean Platelet Volume 10.2 fL (9.1-12.4); NEUTROPHILS ABSOLUTE AUTO 13.78 K/mm3 (1.96-9.15); NEUTROPHILS PERCENT AUTO 82 % (41-73); NRBC ABSOLUTE 0.02 K/mm3 (0.00-0.02); NRBC Auto 0.1 /100 WBC (0.0-0.2); Platelet Count 267 K/mm3 (150-400); RDW Coefficient Variation 16.8 % (11.7-14.2); RDW Standard Deviation 55.8 fL (35.1-46.3); Red Blood Cell Count 3.95 M/mm3 (3.80-5.20); White Blood Cell Count 16.82 K/mm3 (4.00-11.30)
[2018-08-28 05:07] LABS: International Normalized Ratio 1.63; Prothrombin Time Results 16.5 Sec (9.7-11.5)
[2018-08-28 05:30] LABS: Albumin, Blood 2.8 g/dL (3.4-5.0); Anion Gap 6 mmol/L (6-16); Blood Urea Nitrogen 60 mg/dL (8-24); Bun/Creatinine Ratio 45.5 (12.0-20.0); CO2, Blood 34 mmol/L (21-32); Calcium, Blood 8.5 mg/dL (8.5-10.1); Chloride, Blood 96 mmol/L (98-108); Creatinine, Blood 1.32 mg/dL (0.40-1.00); Digoxin (Lanoxin) 1.03 ug/mL (0.80-2.00); Glomerular Filtration Rate 43 (60-); Glucose, Blood 104 mg/dL (70-99); Phosphorus, Blood 3.6 mg/dL (2.5-4.9); Potassium, Blood 4.1 mmol/L (3.5-5.5); Sodium, Blood 136 mmol/L (136-145)
[2018-08-29 05:25] LABS: BASOPHILS ABSOLUTE AUTO 0.02 K/mm3 (0.00-0.23); BASOPHILS PERCENT AUTO 0 % (0-2); EOSINOPHILS PERCENT AUTO 1 % (0-6); Hematocrit 40.2 % (33.0-51.0); Hemoglobin 12.8 g/dL (11.5-16.0); IMMATURE GRAN ABSOLUTE AUTO 0.08 K/mm3 (0.00-0.10); IMMATURE GRAN PERCENT AUTO 0 % (0-1); LYMPHOCYTES ABSOLUTE AUTO 1.43 K/mm3 (0.84-5.20); LYMPHOCYTES PERCENT AUTO 7 % (21-46); MONOCYTES ABSOLUTE AUTO 1.39 K/mm3 (0.16-1.47); MONOCYTES PERCENT AUTO 7 % (4-13); Mean Corpuscular HGB 29.2 pg (26.0-34.0); Mean Corpuscular HGB Conc 31.8 g/dL (31.5-36.5); Mean Corpuscular Volume 92 fL (80-100); Mean Platelet Volume 10.2 fL (9.1-12.4); NEUTROPHILS ABSOLUTE AUTO 16.41 K/mm3 (1.96-9.15); NEUTROPHILS PERCENT AUTO 84 % (41-73); Platelet Count 296 K/mm3 (150-400); RDW Standard Deviation 56.8 fL (35.1-46.3); Red Blood Cell Count 4.39 M/mm3 (3.80-5.20); White Blood Cell Count 19.43 K/mm3 (4.00-11.30)
[2018-08-29 05:39] LABS: International Normalized Ratio 1.22; Prothrombin Time Results 12.7 Sec (9.7-11.5)
[2018-08-29 05:48] LABS: Albumin, Blood 3.2 g/dL (3.4-5.0); Anion Gap 7 mmol/L (6-16); Blood Urea Nitrogen 56 mg/dL (8-24); Bun/Creatinine Ratio 47.5 (12.0-20.0); CO2, Blood 33 mmol/L (21-32); Calcium, Blood 8.8 mg/dL (8.5-10.1); Chloride, Blood 94 mmol/L (98-108); Creatinine, Blood 1.18 mg/dL (0.40-1.00); Glomerular Filtration Rate 48 (60-); Glucose, Blood 81 mg/dL (70-99); Phosphorus, Blood 3.7 mg/dL (2.5-4.9); Sodium, Blood 134 mmol/L (136-145)
[2018-08-29] MEDS ORDERED: BUDE.25 NEB (10:08)
[2018-08-29] MEDS ORDERED: ACET325 PO (10:09)
[2018-08-29] MEDS ORDERED: LANOXIN125 MCG PO (10:10)
[2018-08-29] MEDS ORDERED: DOCU100 PO (10:10)
[2018-08-29] MEDS ORDERED: GABA300 PO (10:11)
[2018-08-29] MEDS ORDERED: GUAI600T33 PO (10:11)
[2018-08-29] MEDS ORDERED: METO50ER PO (10:12)
[2018-08-29] MEDS ORDERED: PANT20 PO (10:12)
[2018-08-29] MEDS ORDERED: PRED20 PO (10:13)
== END 2018-08-29 12:31 | disposition home or self-care (01) | DRG 872 ==
LOC: ER 19:29 → PCU 21:52 → MEDS 08-28 15:31
PROVIDERS: Emergency Medicine; Internal Medicine; Nurse Practitioner Acute Care; ADMIT Hospitalist
DX: A41.51 Sepsis due to Escherichia coli [E. coli] (principal); I13.0 Hypertensive heart and chronic kidney disease with heart failure and stage 1 through stage 4 chronic kidney disease, or unspecified chronic kidney disease; I50.22 Chronic systolic (congestive) heart failure; J44.1 Chronic obstructive pulmonary disease with (acute) exacerbation; E87.2 Acidosis; N17.9 Acute kidney failure, unspecified; E87.1 Hypo-osmolality and hyponatremia; N18.3 Chronic kidney disease, stage 3 (moderate); F17.210 Nicotine dependence, cigarettes, uncomplicated; F20.9 Schizophrenia, unspecified; E87.5 Hyperkalemia; E83.39 Other disorders of phosphorus metabolism; R79.1 Abnormal coagulation profile; I48.2 Chronic atrial fibrillation; K59.00 Constipation, unspecified; I34.0 Nonrheumatic mitral (valve) insufficiency; F41.9 Anxiety disorder, unspecified; G89.4 Chronic pain syndrome; E86.0 Dehydration; Z79.01 Long term (current) use of anticoagulants; D63.1 Anemia in chronic kidney disease; Z91.19 Patient's noncompliance with other medical treatment and regimen; Z91.14 Patient's other noncompliance with medication regimen; M54.9 Dorsalgia, unspecified
CPT/HCPCS: 36415; 36600; 51701; 51702; 71045; 71046; 74018; 74176; 76770; 80048; 80053; 80069; 80162; 81001; 81003; 82248; 82550; 82803; 83605; 83735; 83880; 84100; 84145; 84484; 85025; 85027; 85610; 85730; 87040; 87077; 87086; 87186; 93005; 93010; 94640; 94660; 94760; 94762; 96365; 96366; 96368; 99285-25; A9270-GY; C1751; C9113; J0610; J0696; J1160; J1644; J1650; J1815; J1940; J2405; J2543; J2930; J7030; J7040; J7050; J7070; J7120; J7512

== ENCOUNTER 2018-10-27 15:40 | Inpatient (IN) | payer MEDICARE ==
[~2018-10-27] VITALS: Ht 172.7 cm; Wt 95.2 kg
[~2018-10-27 15:40] MED LIST changes: +ACET325 PO; +BUDE.25 NEB; +DOCU100 PO; +GUAI600T33 PO; +METO50ER PO; +PANT20 PO; +PRED20 PO
[2018-10-27] MEDS ORDERED: WARF5 PO (17:44)
[2018-10-27] MEDS ORDERED: Coreg12.5 MG PO (17:48)
[2018-10-27] MEDS ORDERED: DILTIAZEM 24HR240 M2 PO (17:49)
[2018-10-27] MEDS ORDERED: ZESTRIL40 MG PO (17:50)
[2018-10-27 17:53] LABS: Digoxin (Lanoxin) 0.08 ug/mL (0.80-2.00)
[2018-10-27] MEDS ORDERED: Spironolactone25 MG PO (17:54)
[2018-10-27] MEDS ORDERED: Budesonide0.5 MG/2 M INH (17:55)
[2018-10-27] MEDS ORDERED: Aspirin EC81 MG PO (17:56)
--- NOTE | 2018-10-27 21:15 | NUR ---
PATIENT REQUESTING TRAMADOL FOR PAIN IN LEGS OF 11/06. CALLED DR. YU WHO ORDERED TRAMADOL 50MG PO TID PRN. NO FURTHER ORDERS TAKEN.
--- NOTE | 2018-10-28 06:37 | NUR ---
PATIENT UP AND DOWN TO THE BATHROOM THROUGH THE NIGHT. PATIENT REQUIRED ONE TRAMADOL SHORTLY AFTER SHE ARRIVED TO THE FLOOR FOR LEG PAIN. PATIENT BREATHING HAS IMPROVED THROUGH THE NIGHT. PATIENT IS FEELING BETTER. GIVEN SNACK EARLY THIS MORNING. PATIENT STATED THAT SHE HAS NOT HAD THE ENERGY OR THE BREATH TO CLEAN HER ROOM LATELY AND SHE WOULD BE HAPPY IF SHE COULD.
[2018-10-28 08:46] LABS: International Normalized Ratio 1.9
--- NOTE | 2018-10-28 17:37 | NUR ---
END OF SHIFT; PT IS [facility] WITH TELE STATUS. SHE IS AO X 4. HER BREATHING IS EVEN AND UNLABORED WHILE AT REST. SHE BECOMES SOB WITH EXERTION. PT HAS NON PRODUCTIVE COUGH. SHE IS INDEPENDENT IN THE ROOM. COOPERATIVE WITH CARE. HER HR IS ELEVATED IN THE 120'S. PT HAS CHRONIC AFIB. WILL CONTINUE TO MONITOR THIS PATIENT UNTIL REPORT AND H AND OFF TO NOC SHIFT RN.
[2018-10-29 03:45] LABS: Hematocrit 34.5 % (33.0-51.0); Hemoglobin 10.9 g/dL (11.5-16.0); Mean Corpuscular HGB 27.8 pg (26.0-34.0); Mean Corpuscular HGB Conc 31.6 g/dL (31.5-36.5); Mean Platelet Volume 10.7 fL (9.1-12.4); Platelet Count 346 K/mm3 (150-400); RDW Coefficient Variation 17.6 % (11.7-14.2); RDW Standard Deviation 56.2 fL (35.1-46.3); Red Blood Cell Count 3.92 M/mm3 (3.80-5.20); White Blood Cell Count 13.93 K/mm3 (4.00-11.30)
[2018-10-29 03:46] LABS: Mean Corpuscular Volume 88 fL (80-100)
[2018-10-29 04:01] LABS: International Normalized Ratio 2.68
[2018-10-29 04:02] LABS: Albumin, Blood 3.2 g/dL (3.4-5.0); Anion Gap 9 mmol/L (6-16); Blood Urea Nitrogen 35 mg/dL (8-24); Bun/Creatinine Ratio 23.8 (12.0-20.0); CO2, Blood 23 mmol/L (21-32); Calcium, Blood 8.8 mg/dL (8.5-10.1); Chloride, Blood 105 mmol/L (98-108); Creatinine, Blood 1.47 mg/dL (0.40-1.00); Glomerular Filtration Rate 38 (60-); Glucose, Blood 141 mg/dL (70-99); Phosphorus, Blood 3.7 mg/dL (2.5-4.9); Potassium, Blood 4.4 mmol/L (3.5-5.5); Sodium, Blood 137 mmol/L (136-145)
--- NOTE | 2018-10-29 05:32 | NUR ---
PATIENT COMPLETELY INDEPENDENT IN ROOM. PATIENT STATES HE HAS BEEN GETTING LOTS OF SLEEP IN THE LAST TWO DAYS SINCE SHE HAS STARTED FEELING BETTER. PATIENT STATES SHE FEELS SO MUCH BETTER. NO NOTED LABORED BREATHING THROUGH THE NIGHT. PATIENT RECIEVED ONE TRAMADOL DUE TO LEG AND LOW BACK PAIN. PATIENT DENIES ANY OTHER NEEDS.
--- NOTE | 2018-10-29 17:30 | NUR ---
END OF SHIFT; PT HAD UNEVENTFUL DAY. NO ACUTE CHANGES INCONDITION NOTED. REMAINS IN AFIB AT 110'S. IS ASYMPTOMATIC. ORDERS FOR HOME HEALTH ARE ACKNOWLEDGED AND SHE WILL GO HOME WITH ORDER FOR HOME HEALTH [facility].
--- NOTE | 2018-10-30 01:59 | NUR ---
0158: PT WAKES AND CALLS RN TO ROOM, APPEARS ANXIOUS AND STATES SHE FEELS SOB. PT APPEARS HTN AND TACHYCARDIC; PLAN TO MEDICATE WITH IV METOPROLOL.
[2018-10-30 04:09] LABS: Bun/Creatinine Ratio 29.1 (12.0-20.0); Calcium, Blood 8.6 mg/dL (8.5-10.1); Creatinine, Blood 1.51 mg/dL (0.40-1.00); Potassium, Blood 4.1 mmol/L (3.5-5.5)
[2018-10-30 04:15] LABS: Prothrombin Time Results 39.3 Sec (9.7-11.5)
[2018-10-30 04:21] LABS: International Normalized Ratio 4.23
--- NOTE | 2018-10-30 06:45 | NUR ---
SUMMARY: ADMIT DAY 4 CHF EXACERBATION ON HOSPITALIST SERVICE. NO ACUTE CHANGES THIS SHIFT, PT WOKE ANXIOUS AND HTN AND WAS MEDICATED WITH 2.5 MG IV METOPROLOL AND RESOLVED. PT STATES SHE SUSPECTS SHE HAS SLEEP APNEA. OPTHERWISE VSS, AFEBRILE ON ROOM AIR AND REMAINS STEADY ON FEET WHILE UP FOR BRP. ANTICIPATE DC HOME WITH F/U PT/INR FOR [employer] RANGE. INR 4.23 THIS AM AFTER 5MG COUMADIN 10/28/18.
[2018-10-30] MEDS ORDERED: CARV25 PO (10:06)
[2018-10-30] MEDS ORDERED: LANOXIN125 MCG PO (10:07)
--- NOTE | 2018-10-30 11:21 | NUR ---
DISCHARGE NOTE PT STABLE FOR DISCHARGE. IV REMOVED. DISCHARGE INSTRUCTIONS AND DISCHARGE MEDICATIONS REVIEWED WITH PT AND SISTER. PT AND SISTER VERBALIZE UNDERSTANDING AND DENY QUESTIONS. PT DISCHARGED VIA WHEELCHAIR TO WAITING CAR.
== END 2018-10-30 11:10 | disposition home or self-care (01) | DRG 291 ==
LOC: ER 15:40 → PCU 17:36
PROVIDERS: Physician Assistant; ADMIT Internal Medicine
DX: I13.0 Hypertensive heart and chronic kidney disease with heart failure and stage 1 through stage 4 chronic kidney disease, or unspecified chronic kidney disease (principal); I50.43 Acute on chronic combined systolic (congestive) and diastolic (congestive) heart failure; I48.2 Chronic atrial fibrillation; N18.3 Chronic kidney disease, stage 3 (moderate); J44.9 Chronic obstructive pulmonary disease, unspecified; Z74.09 Other reduced mobility; I34.0 Nonrheumatic mitral (valve) insufficiency; F20.9 Schizophrenia, unspecified; Z88.2 Allergy status to sulfonamides; Z88.8 Allergy status to other drugs, medicaments and biological substances; Z87.891 Personal history of nicotine dependence; Z79.01 Long term (current) use of anticoagulants; Z79.82 Long term (current) use of aspirin; Z79.899 Other long term (current) drug therapy; Z91.14 Patient's other noncompliance with medication regimen; E55.9 Vitamin D deficiency, unspecified
CPT/HCPCS: 36415; 71046; 80048; 80069; 80162; 81003; 82306; 82570; 83880; 83970; 84156; 84484; 85025; 85027; 85610; 93005; 93010; 94640; 94760; 96374; 96375; 99285-25; J1160; J1940; J2930; J7512

== ENCOUNTER 2018-12-22 07:23 | Emergency (ER) | payer MEDICARE ==
[~2018-12-22] VITALS: Ht 167.6 cm; Wt 95.2 kg
[~2018-12-22 07:23] MED LIST changes: +Budesonide0.5 MG/2 M INH; +Coreg12.5 MG PO; +DILTIAZEM 24HR240 M2 PO; +Spironolactone25 MG PO; +ZESTRIL40 MG PO
[2018-12-22 07:58] LABS: BASOPHILS ABSOLUTE AUTO 0.05 K/mm3 (0.00-0.23); BASOPHILS PERCENT AUTO 0 % (0-2); EOSINOPHILS ABSOLUTE AUTO 0.14 K/mm3 (0.00-0.68); EOSINOPHILS PERCENT AUTO 1 % (0-6); Hematocrit 39.6 % (33.0-51.0); Hemoglobin 12.5 g/dL (11.5-16.0); IMMATURE GRAN ABSOLUTE AUTO 0.04 K/mm3 (0.00-0.10); IMMATURE GRAN PERCENT AUTO 0 % (0-1); LYMPHOCYTES ABSOLUTE AUTO 1.03 K/mm3 (0.84-5.20); LYMPHOCYTES PERCENT AUTO 9 % (21-46); MONOCYTES ABSOLUTE AUTO 0.79 K/mm3 (0.16-1.47); MONOCYTES PERCENT AUTO 7 % (4-13); Mean Corpuscular HGB 29.1 pg (26.0-34.0); Mean Corpuscular HGB Conc 31.6 g/dL (31.5-36.5); Mean Corpuscular Volume 92 fL (80-100); Mean Platelet Volume 10.1 fL (9.1-12.4); NEUTROPHILS ABSOLUTE AUTO 9.07 K/mm3 (1.96-9.15); NEUTROPHILS PERCENT AUTO 82 % (41-73); Platelet Count 310 K/mm3 (150-400); RDW Coefficient Variation 18.3 % (11.7-14.2); RDW Standard Deviation 61.2 fL (35.1-46.3); White Blood Cell Count 11.12 K/mm3 (4.00-11.30)
[2018-12-22 08:12] LABS: International Normalized Ratio 2.11; Prothrombin Time Results 20.9 Sec (9.7-11.5)
[2018-12-22 08:33] LABS: Albumin, Blood 3.8 g/dL (3.4-5.0); Albumin/Globulin Ratio 1.3 (0.8-1.8); Anion Gap 10 mmol/L (6-16); Blood Urea Nitrogen 23 mg/dL (8-24); Bun/Creatinine Ratio 20.2 (12.0-20.0); CO2, Blood 25 mmol/L (21-32); Calcium, Blood 9.3 mg/dL (8.5-10.1); Chloride, Blood 106 mmol/L (98-108); Creatinine, Blood 1.14 mg/dL (0.40-1.00); Glomerular Filtration Rate 48 (60-); Glucose, Blood 109 mg/dL (70-99); Potassium, Blood 4.2 mmol/L (3.5-5.5); Sodium, Blood 141 mmol/L (136-145); Total Protein, Blood 6.8 g/dL (6.4-8.2)
[2018-12-22 08:34] LABS: Alanine Aminotransfer (ALT/SGP 44 U/L (12-78); Alk Phos 107 U/L (50-136); Aspartate Aminotrans (AST/SGOT 45 U/L (12-37); Bilirubin, Total 0.8 mg/dL (0.1-1.0); Troponin I <0.015 ng/mL (0.000-0.040)
== END 2018-12-22 10:27 | disposition home or self-care (01) ==
LOC: ER 07:23
PROVIDERS: Emergency Medicine
DX: I50.22 Chronic systolic (congestive) heart failure (principal); R06.00 Dyspnea, unspecified; I48.91 Unspecified atrial fibrillation; N18.3 Chronic kidney disease, stage 3 (moderate); F20.9 Schizophrenia, unspecified; Z88.8 Allergy status to other drugs, medicaments and biological substances; Z88.2 Allergy status to sulfonamides; Z79.899 Other long term (current) drug therapy; Z79.01 Long term (current) use of anticoagulants; Z79.82 Long term (current) use of aspirin; F17.200 Nicotine dependence, unspecified, uncomplicated
CPT/HCPCS: 36415; 71046; 80053; 83880; 84484; 85025; 85610; 93005; 93010; 96374; 96375; 99284-25; J1940; J2405

== ENCOUNTER 2019-04-15 02:26 | Emergency (ER) | payer MEDICARE ==
[~2019-04-15] VITALS: Ht 167.6 cm; Wt 90.7 kg
[2019-04-15] MEDS ORDERED: CYCL10 PO (03:55)
== END 2019-04-15 04:47 | disposition home or self-care (01) ==
LOC: ER 02:26
DX: M54.41 Lumbago with sciatica, right side (principal); I13.0 Hypertensive heart and chronic kidney disease with heart failure and stage 1 through stage 4 chronic kidney disease, or unspecified chronic kidney disease; N18.3 Chronic kidney disease, stage 3 (moderate); I50.22 Chronic systolic (congestive) heart failure; F20.9 Schizophrenia, unspecified; J44.9 Chronic obstructive pulmonary disease, unspecified; F17.210 Nicotine dependence, cigarettes, uncomplicated; I48.91 Unspecified atrial fibrillation; Z88.2 Allergy status to sulfonamides; Z88.8 Allergy status to other drugs, medicaments and biological substances; Z79.01 Long term (current) use of anticoagulants; Z79.82 Long term (current) use of aspirin; Z79.899 Other long term (current) drug therapy
CPT/HCPCS: 99283

== ENCOUNTER 2019-05-14 00:19 | Inpatient (IN) | payer MEDICARE ==
[~2019-05-14] VITALS: Ht 167.6 cm; Wt 97.3 kg
[~2019-05-14 00:19] MED LIST changes: -Spironolactone25 MG PO
[2019-05-14 00:43] LABS: BASOPHILS ABSOLUTE AUTO 0.03 K/mm3 (0.00-0.23); BASOPHILS PERCENT AUTO 0 % (0-2); EOSINOPHILS ABSOLUTE AUTO 0.11 K/mm3 (0.00-0.68); EOSINOPHILS PERCENT AUTO 1 % (0-6); Hematocrit 37.5 % (33.0-51.0); Hemoglobin 12.4 g/dL (11.5-16.0); IMMATURE GRAN ABSOLUTE AUTO 0.05 K/mm3 (0.00-0.10); IMMATURE GRAN PERCENT AUTO 0 % (0-1); LYMPHOCYTES PERCENT AUTO 11 % (21-46); MONOCYTES ABSOLUTE AUTO 0.48 K/mm3 (0.16-1.47); MONOCYTES PERCENT AUTO 4 % (4-13); Mean Corpuscular HGB 30.7 pg (26.0-34.0); Mean Corpuscular HGB Conc 33.1 g/dL (31.5-36.5); Mean Corpuscular Volume 93 fL (80-100); Mean Platelet Volume 8.9 fL (9.1-12.4); NEUTROPHILS ABSOLUTE AUTO 9.64 K/mm3 (1.96-9.15); NEUTROPHILS PERCENT AUTO 83 % (41-73); Platelet Count 364 K/mm3 (150-400); RDW Coefficient Variation 13.7 % (11.7-14.2); RDW Standard Deviation 47.2 fL (35.1-46.3); Red Blood Cell Count 4.04 M/mm3 (3.80-5.20); White Blood Cell Count 11.61 K/mm3 (4.00-11.30)
[2019-05-14 01:03] LABS: Alanine Aminotransfer (ALT/SGP 50 U/L (12-78); Albumin, Blood 3.4 g/dL (3.4-5.0); Alk Phos 146 U/L (50-136); Anion Gap 10 mmol/L (6-16); Aspartate Aminotrans (AST/SGOT 43 U/L (12-37); Bilirubin, Total 0.7 mg/dL (0.1-1.0); Blood Urea Nitrogen 11 mg/dL (8-24); Bun/Creatinine Ratio 11.8 (12.0-20.0); CO2, Blood 23 mmol/L (21-32); Calcium, Blood 7.9 mg/dL (8.5-10.1); Chloride, Blood 94 mmol/L (98-108); Creatinine, Blood 0.94 mg/dL (0.40-1.00); Globulin, Blood 3.3 g/dL (2.2-4.0); Glomerular Filtration Rate >60 (60-); Glucose, Blood 109 mg/dL (70-99); Potassium, Blood 3.6 mmol/L (3.5-5.5); Sodium, Blood 127 mmol/L (136-145); Total Protein, Blood 6.7 g/dL (6.4-8.2); Troponin I <0.015 ng/mL (0.000-0.040)
[2019-05-14 01:15] LABS: PCO2 Arterial 41.1 mmHg (35-45); pH Blood Arterial 7.36 (7.35-7.45)
[2019-05-14 05:38] LABS: Influenza A Negative (NEGATIVE); Influenza B Negative (NEGATIVE)
--- NOTE | 2019-05-14 06:52 | NUR ---
PATIENT ARRIVED AT 0505 FROM THE ER. SHE IS AWAKE AND ABLE TO ANSWERE MOST QUESTIONS FOR ADMITTING PROCESS. sHE DOES NOT KNOW HER MEDICATIONS HER S/O IS THE ONE WHO DOES HER MEDS. PT IS ON 2L NC BIOX 97. LUNGS WITH EXP WHEEZE THROUGHOUT LUNG CROCKETT. SHE IS ABLE TO BE UP TO THE bsc WITHOUT ISSUE. EXPERIENCING BACK PAIN. ORDER RECIEVED FOR IV FENTANYL, 25 MCG GIVEN WITH GOOD RELIEF.
[2019-05-14 08:59] LABS: Hematocrit 42.7 % (33.0-51.0); Hemoglobin 14.3 g/dL (11.5-16.0); Mean Corpuscular HGB 30.4 pg (26.0-34.0); Mean Corpuscular HGB Conc 33.5 g/dL (31.5-36.5); Mean Corpuscular Volume 91 fL (80-100); Platelet Count 439 K/mm3 (150-400); RDW Coefficient Variation 13.8 % (11.7-14.2); RDW Standard Deviation 46.5 fL (35.1-46.3); White Blood Cell Count 18.87 K/mm3 (4.00-11.30)
[2019-05-14 09:20] LABS: International Normalized Ratio 1.83; Prothrombin Time Results 18.9 Sec (9.7-11.5)
[2019-05-14 09:32] LABS: Adenovirus Not Detected (NOT DETECT); Bordetella pertussis Not Detected (NOT DETECT); Chlamydophila pneumoniae Not Detected (NOT DETECT); Coronavirus 229E Not Detected (NOT DETECT); Coronavirus HKU1 Not Detected (NOT DETECT); Coronavirus NL63 Not Detected (NOT DETECT); Coronavirus OC43 Not Detected (NOT DETECT); Human Metapneumovirus Not Detected (NOT DETECT); Human Rhinovirus/Enterovirus Not Detected (NOT DETECT); Influenza A Not Detected (NOT DETECT); Influenza A/2009-H1 Not Detected (NOT DETECT); Influenza A/H1 Not Detected (NOT DETECT); Influenza A/H3 Not Detected (NOT DETECT); Influenza B Not Detected (NOT DETECT); Mycoplasma pneumoniae Not Detected (NOT DETECT); Parainfluenza Virus 1 Not Detected (NOT DETECT); Parainfluenza Virus 2 Not Detected (NOT DETECT); Parainfluenza Virus 3 Not Detected (NOT DETECT); Parainfluenza Virus 4 Not Detected (NOT DETECT); Respiratory Syncytial Virus Not Detected (NOT DETECT)
[2019-05-14 09:34] LABS: Alanine Aminotransfer (ALT/SGP 51 U/L (12-78); Albumin, Blood 3.8 g/dL (3.4-5.0); Alk Phos 174 U/L (50-136); Anion Gap 10 mmol/L (6-16); Aspartate Aminotrans (AST/SGOT 41 U/L (12-37); Bilirubin, Total 1.2 mg/dL (0.1-1.0); Blood Urea Nitrogen 15 mg/dL (8-24); Bun/Creatinine Ratio 18.1 (12.0-20.0); CO2, Blood 23 mmol/L (21-32); CPK Creatine Kinase 534 U/L (26-193); Calcium, Blood 8.7 mg/dL (8.5-10.1); Chloride, Blood 94 mmol/L (98-108); Creatinine, Blood 0.83 mg/dL (0.40-1.00); Globulin, Blood 3.8 g/dL (2.2-4.0); Glomerular Filtration Rate >60 (60-); Glucose, Blood 183 mg/dL (70-99); Potassium, Blood 3.9 mmol/L (3.5-5.5); Sodium, Blood 127 mmol/L (136-145); Total Protein, Blood 7.6 g/dL (6.4-8.2); Troponin I <0.015 ng/mL (0.000-0.040)
[2019-05-14 09:49] LABS: Creatine Kinase MB 11.1 ng/mL (0.0-3.6); Creatine Kinase MB Index 2.1 (0.0-4.0)
[2019-05-14] MEDS ORDERED: TRAZ50 PO (10:24)
[2019-05-14] MEDS ORDERED: GABA300 PO (10:26)
[2019-05-14 16:54] LABS: CPK Creatine Kinase 432 U/L (26-193); Troponin I <0.015 ng/mL (0.000-0.040)
[2019-05-14 17:09] LABS: Creatine Kinase MB 6.9 ng/mL (0.0-3.6); Creatine Kinase MB Index 1.6 (0.0-4.0)
--- NOTE | 2019-05-14 17:43 | NUR ---
SHIFT SUMMARY PT IS A&0X4, ABLE [place] [facility] [place]. PT STARTED THE MORNING OFF HYPTENSIVE IN THE 200'S SYSTOLIC AND THIS EVENING IS DOWN IN THE 140'S FOR SBP. MONITOR SHOWS A-FIB RVR AVERAGE RATE 110. WITH ACTIVITY AND/OR PAIN PT WOULD TEMPORAILY INCREASE HER HR 130'S. PT WAS RESTARTED ON HER HOME MEDS TODAY BY DOCTOR. PT WAS ABLE TO BE WEANED DOWN TO 1L NC OF OXYGEN, UNABLE TO FULLY WEAN PT OFF HER SAT'S WOULD DROP IN THE MID 80'S WHEN ASLEEP OR WITH MOVEMENT. PT REPORTS HER BREATHING HAS IMPROVED SINCE BEING DOWN IN ER. PT HAS BEEN DIURESING AND INITIALLY VOIDING WITHOUT DIFFICULTY, THIS AFTERNOON, PT HAS BEEN UNABLE TO VOID AND REPORTS FEELING LIKE SHE HAS A FULL BLADDER. BLADDER SCAN PERFORMED AND MD NOTIFIED. ORDERS RECEIVED TO PLACE SHAVER IF PT UNABLE TO VOID AND BLADDER SCAN SHOWS >200ML. PAIN CONTROL HAS BEEN DIFFICULT FOR THE PT WITH C/O PAIN IN HER BACK (CHRONIC), OCCASIONAL SHOOTING LEG PAIN (CHRONIC) AND NEW LEFT FLANK PAIN. SEE EMAR FOR PRN MEDICATION ADMINISTRATION.
[2019-05-14 21:48] LABS: Source, Urine Catheter
[2019-05-14 21:50] LABS: Appearance, Urine Clear (Clear); Bilirubin, Urine Neg (Neg); Blood, Urine 1+ (Neg); Color, Urine Amber (P-Yellow); Glucose Qualitative, Urine Neg (Neg); Ketones, Urine Neg (Neg); Leukocyte Esterase, Urine 3+ (Neg); Nitrite, Urine Neg (Neg); Protein, Urine 1+ (Neg); Urobilinogen, Urine NORM (Normal)
[2019-05-14 22:01] LABS: Bacteria Many /hpf; Hyaline Casts 0-2 /lpf (0-2); Red Blood Cells, Urine 0-2 /hpf (0-2); Squamous Epithelial Cells Few /hpf (Few)
[2019-05-15 03:34] LABS: BASOPHILS ABSOLUTE AUTO 0.02 K/mm3 (0.00-0.23); BASOPHILS PERCENT AUTO 0 % (0-2); EOSINOPHILS PERCENT AUTO 0 % (0-6); Hematocrit 43.2 % (33.0-51.0); Hemoglobin 14.1 g/dL (11.5-16.0); IMMATURE GRAN PERCENT AUTO 1 % (0-1); LYMPHOCYTES ABSOLUTE AUTO 0.75 K/mm3 (0.84-5.20); LYMPHOCYTES PERCENT AUTO 3 % (21-46); MONOCYTES ABSOLUTE AUTO 0.15 K/mm3 (0.16-1.47); MONOCYTES PERCENT AUTO 1 % (4-13); Mean Corpuscular HGB 30.8 pg (26.0-34.0); Mean Corpuscular HGB Conc 32.6 g/dL (31.5-36.5); Mean Platelet Volume 9.4 fL (9.1-12.4); NEUTROPHILS ABSOLUTE AUTO 21.16 K/mm3 (1.96-9.15); NEUTROPHILS PERCENT AUTO 95 % (41-73); Platelet Count 396 K/mm3 (150-400); RDW Coefficient Variation 14.5 % (11.7-14.2); RDW Standard Deviation 49.3 fL (35.1-46.3); Red Blood Cell Count 4.58 M/mm3 (3.80-5.20); White Blood Cell Count 22.18 K/mm3 (4.00-11.30)
[2019-05-15 03:39] LABS: Mean Corpuscular Volume 94 fL (80-100)
[2019-05-15 03:49] LABS: International Normalized Ratio 1.58; Prothrombin Time Results 16.5 Sec (9.7-11.5)
[2019-05-15 04:04] LABS: Albumin, Blood 3.3 g/dL (3.4-5.0); Anion Gap 10 mmol/L (6-16); Blood Urea Nitrogen 35 mg/dL (8-24); Bun/Creatinine Ratio 23.2 (12.0-20.0); CO2, Blood 24 mmol/L (21-32); Calcium, Blood 8.5 mg/dL (8.5-10.1); Chloride, Blood 95 mmol/L (98-108); Creatinine, Blood 1.51 mg/dL (0.40-1.00); Digoxin (Lanoxin) 1.21 ug/mL (0.80-2.00); Glomerular Filtration Rate 36 (60-); Glucose, Blood 144 mg/dL (70-99); Phosphorus, Blood 3.5 mg/dL (2.5-4.9); Potassium, Blood 4.1 mmol/L (3.5-5.5); Sodium, Blood 129 mmol/L (136-145)
--- NOTE | 2019-05-15 06:13 | NUR ---
PT RESTS QUIETLY THROUGHOUT SHIFT, C/O BACK PAIN AND SCIATICA THAT IS CHRONIC IN NATURE, FENTANYL 50 MCG IV ADMIN X 2 THIS SHIFT AND PT REPORTS RELIEF TO 5/10 PAIN. C/O NAUSEA X 1 AND ZOFRAN 4 MG IV ADMIN, NAUSEA IMPROVED AND PT INQUIRES REGARDING INCREASING PO FLUID INTAKE, PO FLUIDS ENCOURAGED. PT C/O FEELING OF PRESSURE IN BLADDER FROM START OF SHIFT TO 2129, ORDERS NOTED ON CHART TO PLACE SHAVER IF BLADDER SCAN GREATER THAN 200 ML, BLADDER SCAN ON DAY SHIFT WAS NOTED AT 179 ML, BLADDER SCAN DONE AT WAS BETWEEN 133 AND 136 ML HOWEVER WAS UNABLE TO CENTER BLADDER ON SCAN, SHAVER PLACED WITH 155 ML URINE IMMEDIATELY RETURNED TO UROMETER AND WITHIN 15 MINUTES URINE IN UROMETER WAS GREATER THAN 200 ML, UA WAS SENT PER PROTOCOL AND RESULTS DISCUSSED WITH HOSPITALIST SPECIAL EFFECTS PERSON, NO NEW ORDERS WERE OBTAINED AT THAT TIME. PT HAS REMAINED AFEBRILE THROUGHOUT SHIFT, PRESSURES MAINTAINED, HEART RATE IS NOTED TO INCREASE TO 130S BRIEFLY WHEN PT IS STARTLED OR INCREASES ACTIVITY, RETURNS TO 100-110S AT REST, CONTINUES IN AFIB. OTHERWISE NO ACUTE CHANGES.
--- NOTE | 2019-05-15 11:16 | NUR ---
DR DE LA ROSA ROUNDS DR DE LA ROSA ROUNDED, UPDATED ON PT STATUS. DR DE LA ROSA AWARE OF PT'S REPORT OF INCREASED SENSITIVITY TO PALPATION IN BLE, REPORTING THAT PAIN IS NOT MANAGED WELL ON CURRENT HOME PAIN MEDS. DR DE LA ROSA ALSO NOTIFIED OF PT'S INCREASING WBC AND THAT URINE SAMPLE SENT OFF WAS POSITIVE FOR UTI. PER DR TRAN PLAN TO WAIT FOR URINE CX TO RETURN. NO CHANGE TO PLAN OF CARE AT THIS TIME. WILL CONT TO MONITOR PT.
--- NOTE | 2019-05-15 11:22 | NUR ---
ECHOCARDIOGRAM COMPLETED
--- NOTE | 2019-05-15 12:00 | NUR ---
SHIFT UPDATE NOTE PT RESTING IN BED, REPOSITIONING SELF. PT OOB INDEPENDENTLY. PT WITHOUT ANY NEEDS AT THIS TIME. VISITOR AT BEDSIDE. VSS, SEE FLOWSHEET. PT DENIES ANY CHEST PAIN/PRESSURE. SPO2 92-93% ON 2LPM VIA NC, BREATHING E/U. BED IN LOWEST POSITION, UPPER SIDE RAILS RAISED. CALL LIGHT IN REACH. WILL CONT TO MONITOR PT.
--- NOTE | 2019-05-15 13:50 | NUR ---
LABS BINDER FOLDER OPERATOR TO BEDSIDE FOR BLOOD DRAW.
--- NOTE | 2019-05-15 15:00 | NUR ---
PASSING GAS PT REPORTING NEED TO HAVE BM, ASSISTED UP TO BSC D/T CORDS AND LINES. PT UNABLE TO HAVE BM AT THIS TIME BUT PASSED A LOT OF GAS. PT REPORTS "FEELING BETTER". PT RETURNED BACK TO BED AND REPOSITIONED FOR COMFORT. CALL LIGHT IN REACH.
--- NOTE | 2019-05-15 18:20 | NUR ---
SHIFT SUMMARY NOTE PT OOB TO BSC AND CHAIR THROUGHOUT SHIFT WITH SBA D/T CORDS. PT C/O NAUSEA, MEDICATED WITH ZOFRAN PER ORDERS. PT REQUESTING FENTANYL FOR PAIN MANAGEMENT, ALTHOUGH REPORTING RELIEF WITH TYLENOL AND FLEXERIL. PER DR DE LA ROSA, PLAN TO AVOID FENTANYL PT REPORTS TAKING OTC MEDICATIONS FOR PAIN MANAGEMENT AT HOME. PT FRUSTRATED BY THIS AND EXPRESSES INTENT TO TALK WITH PCP ABOUT GETTING NARCOTICS. VSS, SEE FLOWSHEET. NO ACUTE CHANGES THROUGHOUT SHIFT. BED IN LOWEST POSITION, UPPER SIDE RAILS RAISED. CALL LIGHT IN REACH. WILL CONT TO MONITOR PT.
[2019-05-16 03:26] LABS: BASOPHILS ABSOLUTE AUTO 0.04 K/mm3 (0.00-0.23); BASOPHILS PERCENT AUTO 0 % (0-2); EOSINOPHILS PERCENT AUTO 0 % (0-6); Hematocrit 41.2 % (33.0-51.0); Hemoglobin 13.5 g/dL (11.5-16.0); IMMATURE GRAN ABSOLUTE AUTO 0.19 K/mm3 (0.00-0.10); IMMATURE GRAN PERCENT AUTO 1 % (0-1); LYMPHOCYTES ABSOLUTE AUTO 0.89 K/mm3 (0.84-5.20); LYMPHOCYTES PERCENT AUTO 3 % (21-46); MONOCYTES ABSOLUTE AUTO 0.81 K/mm3 (0.16-1.47); MONOCYTES PERCENT AUTO 3 % (4-13); Mean Corpuscular HGB 30.8 pg (26.0-34.0); Mean Corpuscular HGB Conc 32.8 g/dL (31.5-36.5); Mean Corpuscular Volume 94 fL (80-100); Mean Platelet Volume 9.5 fL (9.1-12.4); NEUTROPHILS ABSOLUTE AUTO 25.17 K/mm3 (1.96-9.15); NEUTROPHILS PERCENT AUTO 93 % (41-73); Platelet Count 393 K/mm3 (150-400); RDW Coefficient Variation 14.5 % (11.7-14.2); RDW Standard Deviation 50.5 fL (35.1-46.3); Red Blood Cell Count 4.39 M/mm3 (3.80-5.20)
[2019-05-16 03:42] LABS: International Normalized Ratio 2.84; Prothrombin Time Results 28.6 Sec (9.7-11.5)
[2019-05-16 03:45] LABS: Albumin, Blood 2.9 g/dL (3.4-5.0); Anion Gap 8 mmol/L (6-16); Blood Urea Nitrogen 54 mg/dL (8-24); Bun/Creatinine Ratio 29.2 (12.0-20.0); CO2, Blood 28 mmol/L (21-32); Calcium, Blood 8.4 mg/dL (8.5-10.1); Chloride, Blood 95 mmol/L (98-108); Creatinine, Blood 1.85 mg/dL (0.40-1.00); Glomerular Filtration Rate 29 (60-); Glucose, Blood 130 mg/dL (70-99); Phosphorus, Blood 3.8 mg/dL (2.5-4.9); Potassium, Blood 4.6 mmol/L (3.5-5.5); Sodium, Blood 131 mmol/L (136-145)
--- NOTE | 2019-05-16 06:11 | NUR ---
PT RESTS QUIETLY THROUGHOUT SHIFT, VITALS REMAIN STABLE, SATS MAINTAIN WITH OXYGEN AT 2 L/MIN VIA NC, PRODUCTIVE COUGH IS NOTED THIS MORNING AND SPUTUM SENT FOR CULTURE AND SENSITIVITY. AFIB CONTINUES, PRESSURES MAINTAINED THROUGHOUT SHIFT, RATE 90-110S, OCCASIONAL PVC IS NOTED. OTHERWISE NO ACUTE CHANGES THIS SHIFT.
--- NOTE | 2019-05-16 09:20 | NUR ---
PT HAD C/O NAUSEA THAT SUBSIDED AND PT EATE B-FAST. DR MCKEON REMOVED O2 AND PT TOLERATING WELL NOTED. PT SHVAER PATENT YELLOW URINE. IV SITES BILAT AC INTACT AND PATENT. VS NOTED. PT DENIES CURRENT PAIN.
--- NOTE | 2019-05-16 13:20 | NUR ---
PT UP FOR LUNCH AND TOLERATED WELL. SBA DUE TO LINES.
--- NOTE | 2019-05-16 18:06 | NUR ---
PT HAS BEEN INDEPENDENT MOVING IN BED AND UP TO BEDSIDE AND CHAIR TO EAT MEALS. PT CONT TO HAVE CHRONIC PAIN BACK AND LEG PAIN THAT MEDICATION HAVE HELPS. I/O NOTED. VSS. REMAINS A-FIB THAT HAS BEEN CONTROLED NOTED. PT CONT TO HAVE O2 ON AFTER DESATING EARLIER AND WILL RE-EVAL ON NOC OR IN AM.
--- NOTE | 2019-05-16 19:07 | NUR ---
Per admit trigger, I met with Mrs. Bird to offer information on advanced care planning. She reports a strong marisol and no fear of . She does not want to suffer, however. She wants to remain Full Code status for now. I gently explained purpose and benefits of an Advanced Directive. She declined need at this time. Prayer for strength and healing provided at her request. I will remian available.
--- NOTE | 2019-05-16 19:20 | NUR ---
ASSUMED CARE OF PT, BEDSIDE REPORT RECEIVED. PT IS RESTING QUIETLY RECLINING IN BED, DENIES NEEDS AT THIS TIME. SHE IS SPEAKING IN FULL SENTENCES AT REST WITH NO VISIBLE INCREASED WORK OF BREATHING, HARSH OCCASIONAL COUGH IS NOTED, PRODUCTIVE OF MODERATE AMOUNTS OF GREEN SPUTUM, FLUTTER VALVE IS NOW PRESENT ON BEDSIDE TABLE. PT IS WATCHING TV, RECLINING IN BED. MED WITH TELE STATUS CONTINUES. PT IS NOTED TO CONTINUE TO BE IN AFIB ON MONITOR, RATE IS IMPROVED TO 80-90S AT THIS TIME. SATS ARE MAINTAINING WITH OXYGEN AT 2 L/MIN VIA NC, PER DAY SHIFT RN, ATTEMPT WAS MADE TO WEAN TO ROOM AIR HOWEVER PT'S SATS DECREASED TO 80S AND HEART RATE INCREASED TO 130-140S, WILL STRONGLY ENCOURAGE PULMONARY TOILET THROUGHOUT THIS SHIFT AND CONTINUE ATTEMPTS TO WEAN OXYGEN.
--- NOTE | 2019-05-17 01:15 | NUR ---
ASSUMED CARE OF PT. PT SLEEPING AT THIS TIME
--- NOTE | 2019-05-17 02:00 | NUR ---
NAUSEA PT AWAKE C/O NAUSEA, MED WITH ZOFRAN. PT MOVING SELF IN BED. VSS. WT DONE.
[2019-05-17 03:15] LABS: BASOPHILS ABSOLUTE AUTO 0.02 K/mm3 (0.00-0.23); BASOPHILS PERCENT AUTO 0 % (0-2); EOSINOPHILS ABSOLUTE AUTO 0.01 K/mm3 (0.00-0.68); EOSINOPHILS PERCENT AUTO 0 % (0-6); Hematocrit 39.8 % (33.0-51.0); Hemoglobin 12.8 g/dL (11.5-16.0); IMMATURE GRAN PERCENT AUTO 1 % (0-1); LYMPHOCYTES ABSOLUTE AUTO 1.04 K/mm3 (0.84-5.20); LYMPHOCYTES PERCENT AUTO 5 % (21-46); MONOCYTES ABSOLUTE AUTO 0.78 K/mm3 (0.16-1.47); MONOCYTES PERCENT AUTO 4 % (4-13); Mean Corpuscular HGB 30.6 pg (26.0-34.0); Mean Corpuscular HGB Conc 32.2 g/dL (31.5-36.5); Mean Corpuscular Volume 95 fL (80-100); Mean Platelet Volume 9.3 fL (9.1-12.4); NEUTROPHILS PERCENT AUTO 90 % (41-73); Platelet Count 329 K/mm3 (150-400); RDW Coefficient Variation 14.9 % (11.7-14.2); RDW Standard Deviation 51.5 fL (35.1-46.3); Red Blood Cell Count 4.18 M/mm3 (3.80-5.20); White Blood Cell Count 19.75 K/mm3 (4.00-11.30)
[2019-05-17 03:26] LABS: Bun/Creatinine Ratio 31.2 (12.0-20.0); Calcium, Blood 7.8 mg/dL (8.5-10.1); Creatinine, Blood 1.73 mg/dL (0.40-1.00); Potassium, Blood 4.2 mmol/L (3.5-5.5)
[2019-05-17 03:29] LABS: International Normalized Ratio 3.95; Prothrombin Time Results 39.1 Sec (9.7-11.5)
--- NOTE | 2019-05-17 03:38 | NUR ---
REPORT TO HARRIETT SANCHEZ
--- NOTE | 2019-05-17 03:45 | NUR ---
ASSUMED CARE NOTE: ASSUMED CARE OF PT @ 0345, RECEVIED REPORT FROM VIPUL SANCHEZ.
--- NOTE | 2019-05-17 05:33 | NUR ---
SHIFT SUMMARY: SEE PREVIOUS NOTES. PT IS ALERT AND ORIENTEDX3. NO MAJOR CHANGES. PT REMAINS IN AFIB WITH HR BETWEEN 70-90. PT DENIES ANY SOB/PAIN @ THIS TIME. PT HAS BEEN ENOURAGED TO USE I.S T/O SHIFT. OXYGEN VIA NC WAS TURNED OFF TO SEE IF PT COULD MAINTAIN SATURATION ABOVE 90%. PT WAS UNABLE TO MAINTAIN SPO2 ABOVE 90% 2L OF O2 VIA NC WERE REAPPLIED, SPO2 @ 94%. SHAVER PATENT AND DAINING CLEAR YELLOW URINE. WILL CONTINUE TO MONITOR PT UNTIL REPORT IS GIVEN TO ONCOMING SHIFT.
--- NOTE | 2019-05-17 13:25 | NUR ---
AM NOTE... LATE NOTE... PT IS A/O THIS AM AND DENIES PAIN OR DISTRESS OTHER THAN SOME INCREASED MUCUS AND MEDS GIVEN TO ASSIST EXPECTORATION. VSS. PT HAS SHAVER AND AND WILL D/C AFTER MAJOR DIURESIS IS COMPLETED THIS EARLY PM IF POSSIBLE. PT IS UP TO CHAIR FOR MEALS AND TOLERATING WELL. SL DESAT NOTED WITH EXERSION AND O2 AT 2L.
--- NOTE | 2019-05-17 18:24 | NUR ---
PT HAS BEEN INC ALERT THIS SHIFT AND PLEASANT. HAS BEEN EATING WELL. I/O NOTED. VSS. PT CONT TO COUGH UP MOD AMOUNT OF SPUTUM POSS. SMOKERS COUGH RELATED. LUNGS TO ASCULTATION ARE IMPROVED BUT PT OFF O2 BEGINS TO DESAT AND HR INCREASES BUT SL BETTER TODAY.
--- NOTE | 2019-05-18 00:41 | NUR ---
START OF SHIFT: PT HAS SLEPT FIRST PART OF SHIFT. IS CURRENTLY UP TO BSC. PT STATES HAS BEEN HAVING DIFFICULTY URINATING FOR PAST TWO YEARS BUT IS GETTING WORSE. VSS. PT ABLE TO VOID SOME. WILL BLADDER SCAN ONCE PT BACK INTO BED.
--- NOTE | 2019-05-18 02:01 | NUR ---
AT 0100: PT VOIDED 200 cc. BLADDER SCAN REVEALING 17CC.
[2019-05-18 04:30] LABS: BASOPHILS ABSOLUTE AUTO 0.02 K/mm3 (0.00-0.23); BASOPHILS PERCENT AUTO 0 % (0-2); EOSINOPHILS ABSOLUTE AUTO 0.03 K/mm3 (0.00-0.68); EOSINOPHILS PERCENT AUTO 0 % (0-6); Hematocrit 40.5 % (33.0-51.0); Hemoglobin 12.9 g/dL (11.5-16.0); IMMATURE GRAN PERCENT AUTO 1 % (0-1); LYMPHOCYTES ABSOLUTE AUTO 1.25 K/mm3 (0.84-5.20); LYMPHOCYTES PERCENT AUTO 7 % (21-46); MONOCYTES ABSOLUTE AUTO 0.89 K/mm3 (0.16-1.47); MONOCYTES PERCENT AUTO 5 % (4-13); Mean Corpuscular HGB 30.6 pg (26.0-34.0); Mean Corpuscular HGB Conc 31.9 g/dL (31.5-36.5); Mean Corpuscular Volume 96 fL (80-100); Mean Platelet Volume 9.2 fL (9.1-12.4); NEUTROPHILS ABSOLUTE AUTO 14.68 K/mm3 (1.96-9.15); NEUTROPHILS PERCENT AUTO 87 % (41-73); Platelet Count 360 K/mm3 (150-400); RDW Standard Deviation 53.5 fL (35.1-46.3); Red Blood Cell Count 4.21 M/mm3 (3.80-5.20); White Blood Cell Count 16.97 K/mm3 (4.00-11.30)
[2019-05-18 04:45] LABS: International Normalized Ratio 2.54; Prothrombin Time Results 25.8 Sec (9.7-11.5)
--- NOTE | 2019-05-18 06:26 | NUR ---
PT UP TO BSC INDEPENDENTLY AND ABLE TO VOID WITHOUT DIFFICULTY LAST TWO TIMES. VSS. PT WISHING TO GO HOME TODAY.
[2019-05-18] MEDS ORDERED: ACET325 PO (12:07)
[2019-05-18] MEDS ORDERED: ALBU90OI INH (12:10)
[2019-05-18] MEDS ORDERED: CEFD300 PO (12:11)
[2019-05-18] MEDS ORDERED: [UNRECOGNIZED DRUG - OTHER] PO (12:12)
[2019-05-18] MEDS ORDERED: Vsl#3 Capsule1 EACH PO (12:13)
[2019-05-18] MEDS ORDERED: Nicoderm Cq1 EAC1 TOP (12:14)
[2019-05-18] MEDS ORDERED: LISI20 PO (12:14)
[2019-05-18] MEDS ORDERED: ONDA4ODT MM (12:15)
[2019-05-18] MEDS ORDERED: Prednisone10 MG PO (12:16)
--- NOTE | 2019-05-18 15:46 | NUR ---
DISCHARGE Pt discharged from unit at 1530 via wheelchair accompanied by this RN and pt's daughter. Pt discharged wearing own oxygen delivered by [facility]. Discharge education provided to pt and daughter. Pt and daughter verbalized understanding of medication regimen and follow up appointments. Provided with [facility] phone number to notify that they are headed to [place], which is the patient's home.
== END 2019-05-18 15:31 | disposition home or self-care (01) | DRG 291 ==
LOC: ER 00:19 → ERHOLD 02:22 → ICUE 02:22
PROVIDERS: Emergency Medicine; Hospitalist; Internal Medicine; Nurse Practitioner Acute Care; ADMIT Internal Medicine
DX: I13.0 Hypertensive heart and chronic kidney disease with heart failure and stage 1 through stage 4 chronic kidney disease, or unspecified chronic kidney disease (principal); I50.23 Acute on chronic systolic (congestive) heart failure; J96.21 Acute and chronic respiratory failure with hypoxia; I48.19 Other persistent atrial fibrillation; J44.1 Chronic obstructive pulmonary disease with (acute) exacerbation; N39.0 Urinary tract infection, site not specified; E87.1 Hypo-osmolality and hyponatremia; N18.3 Chronic kidney disease, stage 3 (moderate); B96.20 Unspecified Escherichia coli [E. coli] as the cause of diseases classified elsewhere; F20.9 Schizophrenia, unspecified; I34.0 Nonrheumatic mitral (valve) insufficiency; N81.10 Cystocele, unspecified; F17.210 Nicotine dependence, cigarettes, uncomplicated; E66.9 Obesity, unspecified; Z68.32 Body mass index [BMI] 32.0-32.9, adult; Z79.01 Long term (current) use of anticoagulants; Z79.82 Long term (current) use of aspirin
CPT/HCPCS: 0099U; 36415; 36600; 51702; 71045; 80048; 80053; 80069; 80162; 81001; 82306; 82550; 82553; 82803; 83605; 83735; 83880; 84145; 84484; 85025; 85027; 85610; 87040; 87070; 87077; 87086; 87186; 87205; 87804; 90686; 93005; 93010; 93306; 94640; 94644; 94760; 94761; 96374; 96375; 97110; 97116; 97163; 97165; 97530; 99285-25; A9270; A9270-GY; J0360; J0696; J1940; J2405; J2930; J3010; J7040; J7512

== ENCOUNTER 2019-06-19 01:39 | Emergency (ER) | payer MEDICARE ==
[~2019-06-19] VITALS: Ht 167.6 cm; Wt 99.8 kg
[~2019-06-19 01:39] MED LIST changes: +ALBU90OI INH; +CEFD300 PO; +ONDA4ODT MM; +Prednisone10 MG PO; +TRAZ50 PO; +Vsl#3 Capsule1 EACH PO; +[UNRECOGNIZED DRUG - OTHER] PO
[2019-06-19 02:11] LABS: BASOPHILS ABSOLUTE AUTO 0.05 K/mm3 (0.00-0.23); BASOPHILS PERCENT AUTO 1 % (0-2); EOSINOPHILS ABSOLUTE AUTO 0.41 K/mm3 (0.00-0.68); EOSINOPHILS PERCENT AUTO 6 % (0-6); Hematocrit 38.1 % (33.0-51.0); Hemoglobin 12.1 g/dL (11.5-16.0); IMMATURE GRAN ABSOLUTE AUTO 0.03 K/mm3 (0.00-0.10); IMMATURE GRAN PERCENT AUTO 0 % (0-1); LYMPHOCYTES ABSOLUTE AUTO 1.23 K/mm3 (0.84-5.20); LYMPHOCYTES PERCENT AUTO 17 % (21-46); MONOCYTES ABSOLUTE AUTO 0.66 K/mm3 (0.16-1.47); MONOCYTES PERCENT AUTO 9 % (4-13); Mean Corpuscular HGB 31.1 pg (26.0-34.0); Mean Corpuscular HGB Conc 31.8 g/dL (31.5-36.5); Mean Corpuscular Volume 98 fL (80-100); Mean Platelet Volume 9.9 fL (9.1-12.4); NEUTROPHILS ABSOLUTE AUTO 5.06 K/mm3 (1.96-9.15); NEUTROPHILS PERCENT AUTO 68 % (41-73); Platelet Count 266 K/mm3 (150-400); RDW Coefficient Variation 14.6 % (11.7-14.2); RDW Standard Deviation 52.8 fL (35.1-46.3); Red Blood Cell Count 3.89 M/mm3 (3.80-5.20); White Blood Cell Count 7.44 K/mm3 (4.00-11.30)
[2019-06-19 02:32] LABS: Alanine Aminotransfer (ALT/SGP 35 U/L (12-78); Albumin, Blood 3.2 g/dL (3.4-5.0); Alk Phos 95 U/L (50-136); Anion Gap 6 mmol/L (6-16); Aspartate Aminotrans (AST/SGOT 30 U/L (12-37); Bilirubin, Total 0.2 mg/dL (0.1-1.0); Blood Urea Nitrogen 12 mg/dL (8-24); Bun/Creatinine Ratio 9.8 (12.0-20.0); CO2, Blood 27 mmol/L (21-32); Calcium, Blood 8.5 mg/dL (8.5-10.1); Chloride, Blood 103 mmol/L (98-108); Creatinine, Blood 1.22 mg/dL (0.40-1.00); Globulin, Blood 3.2 g/dL (2.2-4.0); Glomerular Filtration Rate 47 (60-); Glucose, Blood 106 mg/dL (70-99); Potassium, Blood 4.1 mmol/L (3.5-5.5); Sodium, Blood 136 mmol/L (136-145); Total Protein, Blood 6.4 g/dL (6.4-8.2); Troponin I <0.015 ng/mL (0.000-0.040)
[2019-06-19] MEDS ORDERED: Prednisone20 MG PO (02:54)
[2019-06-20] MEDS ORDERED: XARELTO15 MG PO (23:27)
[2019-06-20] MEDS ORDERED: PREG75 PO (23:28)
[2019-06-20] MEDS ORDERED: CYCL10 PO (23:34)
== END 2019-06-19 03:42 | disposition home or self-care (01) ==
LOC: ER 01:39
PROVIDERS: Emergency Medicine
DX: J44.1 Chronic obstructive pulmonary disease with (acute) exacerbation (principal); I13.0 Hypertensive heart and chronic kidney disease with heart failure and stage 1 through stage 4 chronic kidney disease, or unspecified chronic kidney disease; N18.3 Chronic kidney disease, stage 3 (moderate); I50.22 Chronic systolic (congestive) heart failure; I48.91 Unspecified atrial fibrillation; F20.9 Schizophrenia, unspecified; Z88.2 Allergy status to sulfonamides; Z88.8 Allergy status to other drugs, medicaments and biological substances; Z79.01 Long term (current) use of anticoagulants; Z79.899 Other long term (current) drug therapy; Z79.82 Long term (current) use of aspirin; Z79.52 Long term (current) use of systemic steroids; Z87.891 Personal history of nicotine dependence
CPT/HCPCS: 71046; 80053; 83880; 84484; 85025; 93005; 93010; 99285-25

== ENCOUNTER 2019-06-20 04:31 | Inpatient (IN) | payer MEDICARE ==
[~2019-06-20] VITALS: Ht 167.6 cm; Wt 99.8 kg
[~2019-06-20 04:31] MED LIST changes: +Prednisone20 MG PO
[2019-06-20 04:51] LABS: Base Excess Venous -0.6 mmol/L; Bicarbonate Venous 23.2 mmol/L (24.0-30.0); PCO2 Venous 45.4 mmHg (38-42); pH Blood Venous 7.35 (7.34-7.37)
[2019-06-20 04:55] LABS: BASOPHILS ABSOLUTE AUTO 0.02 K/mm3 (0.00-0.23); BASOPHILS PERCENT AUTO 0 % (0-2); EOSINOPHILS ABSOLUTE AUTO 0.01 K/mm3 (0.00-0.68); EOSINOPHILS PERCENT AUTO 0 % (0-6); Hemoglobin 12.5 g/dL (11.5-16.0); IMMATURE GRAN ABSOLUTE AUTO 0.11 K/mm3 (0.00-0.10); IMMATURE GRAN PERCENT AUTO 1 % (0-1); LYMPHOCYTES ABSOLUTE AUTO 0.96 K/mm3 (0.84-5.20); LYMPHOCYTES PERCENT AUTO 6 % (21-46); MONOCYTES ABSOLUTE AUTO 0.58 K/mm3 (0.16-1.47); MONOCYTES PERCENT AUTO 4 % (4-13); Mean Corpuscular HGB 30.8 pg (26.0-34.0); Mean Corpuscular HGB Conc 32.1 g/dL (31.5-36.5); Mean Corpuscular Volume 96 fL (80-100); Mean Platelet Volume 9.9 fL (9.1-12.4); NEUTROPHILS PERCENT AUTO 90 % (41-73); Platelet Count 314 K/mm3 (150-400); RDW Coefficient Variation 14.6 % (11.7-14.2); RDW Standard Deviation 51.8 fL (35.1-46.3); Red Blood Cell Count 4.06 M/mm3 (3.80-5.20); White Blood Cell Count 16.08 K/mm3 (4.00-11.30)
[2019-06-20 05:17] LABS: Alanine Aminotransfer (ALT/SGP 54 U/L (12-78); Albumin, Blood 3.7 g/dL (3.4-5.0); Alk Phos 101 U/L (50-136); Anion Gap 10 mmol/L (6-16); Aspartate Aminotrans (AST/SGOT 39 U/L (12-37); Bilirubin, Total 0.4 mg/dL (0.1-1.0); Blood Urea Nitrogen 15 mg/dL (8-24); Bun/Creatinine Ratio 12.9 (12.0-20.0); CO2, Blood 24 mmol/L (21-32); Calcium, Blood 8.9 mg/dL (8.5-10.1); Chloride, Blood 99 mmol/L (98-108); Creatinine, Blood 1.16 mg/dL (0.40-1.00); Globulin, Blood 3.6 g/dL (2.2-4.0); Glomerular Filtration Rate 49 (60-); Glucose, Blood 138 mg/dL (70-99); Potassium, Blood 4.7 mmol/L (3.5-5.5); Sodium, Blood 133 mmol/L (136-145); Total Protein, Blood 7.3 g/dL (6.4-8.2); Troponin I <0.015 ng/mL (0.000-0.040)
[2019-06-20 05:49] LABS: International Normalized Ratio 0.95; Prothrombin Time Results 10.2 Sec (9.7-11.5)
--- NOTE | 2019-06-20 07:22 | NUR ---
PT ARRIVED TO UNIT VIA STRETCHER AT 0642. ABLE TO AMBULATE TO BSC. A/O X4. STAFF ASSISTED PT SAFELY TO BED. CRITICAL LAB LACTIC ACID OF 2.1 RECIEVED AT 0653. REPORT GIVEN TO AM NURSE AND NOTIFIED OF LACTIC ACID LEVEL.
--- NOTE | 2019-06-20 08:54 | NUR ---
LEFT MESSAGE ON VOICE MAIL; [employer] PRESS HIGH-GAVE ALL MORNING B.P. MEDS EARLY, LACTIC ACID 2.1, HAVING DIFFICULTY BREATHING W/RESPIRATIONS IN 30'S STS NORMALLY ON CPAP WHEN IN HOSPITAL. AWAITING ORDERS OR CALL.
[2019-06-20 10:08] LABS: Adenovirus Not Detected (NOT DETECT); Coronavirus 229E Not Detected (NOT DETECT); Coronavirus HKU1 Not Detected (NOT DETECT); Coronavirus NL63 Not Detected (NOT DETECT); Coronavirus OC43 Not Detected (NOT DETECT); Human Metapneumovirus Not Detected (NOT DETECT); Human Rhinovirus/Enterovirus Detected (NOT DETECT)
[2019-06-20 10:09] LABS: Bordetella pertussis Not Detected (NOT DETECT); Chlamydophila pneumoniae Not Detected (NOT DETECT); Influenza A/2009-H1 Not Detected (NOT DETECT); Influenza A/H1 Not Detected (NOT DETECT); Influenza A/H3 Not Detected (NOT DETECT); Influenza B Not Detected (NOT DETECT); Mycoplasma pneumoniae Not Detected (NOT DETECT); Parainfluenza Virus 1 Not Detected (NOT DETECT); Parainfluenza Virus 2 Not Detected (NOT DETECT); Parainfluenza Virus 3 Not Detected (NOT DETECT); Parainfluenza Virus 4 Not Detected (NOT DETECT); Respiratory Syncytial Virus Not Detected (NOT DETECT)
--- NOTE | 2019-06-20 15:24 | NUR ---
CALLED [facility] FOR MED LIST THAT PATIENT BROUGHT IN. STS THEY WILL LOOK FOR IT. ATTEMPT TO GET LIST FROM PCP, BUT CALL DISCONNECTS AFTER RECORDED MESSAGE IS DONE. SENT REQUEST FOR MED LIST TO YARA.
--- NOTE | 2019-06-20 16:52 | NUR ---
PATIENT ARRIVES VIA CART AT MORNING CHANGE OF SHIFT. FROM [facility]. HAS BEEN INDEPENDENT IN ROOM TO BSC. IV PATENT. ALERT AND ORIENTED. IS BREATHING BETTER NEAR END OF SHIFT. HAS ASKS FOR "MASK". SATS HAVE BEEN HIGH 90'S ON 2 LPM N/C. SPEAKS IN COMPLETE SENTENCES. HAD ANTIBIOTICS IN E.R. AND STEROIDS UP HERE. BED IN LOW POSITION. CALL LIGHT WITHIN REACH. [facility]
--- NOTE | 2019-06-20 18:25 | NUR ---
RDrewT NOTIFIED PATIENT REQUEST TREATMENT. [facility] IN E[facility] AND WILL COME UP WHEN AVAILABLE
[2019-06-20] MEDS ORDERED: XARELTO15 MG PO (23:27)
[2019-06-20] MEDS ORDERED: PREG75 PO (23:28)
[2019-06-20] MEDS ORDERED: CYCL10 PO (23:34)
[2019-06-21 05:04] LABS: International Normalized Ratio 1.09; Prothrombin Time Results 11.6 Sec (9.7-11.5)
[2019-06-21] MEDS ORDERED: PANT20 PO (11:55)
[2019-06-21] MEDS ORDERED: ONDA4 (12:01)
[2019-06-21] MEDS ORDERED: PRED20 PO (12:01)
[2019-06-21] MEDS ORDERED: WARF5 PO (14:20)
--- NOTE | 2019-06-21 15:12 | NUR ---
review d'c instructions w/patient. daughter to greens picker rx x 2 at [facility] before picking up patient. aware to make f/u appt w/pcp. answer all questions. aware can go bavck to e.r. if any problems. awaiting [facility] emergency department for oxygen and daughter.
--- NOTE | 2019-06-21 16:47 | NUR ---
IN W/C DOWN TO RIDE.
== END 2019-06-21 16:49 | disposition home or self-care (01) | DRG 871 ==
LOC: ER 04:31 → MEDS 05:33 → ENPENDDIS 06-21 11:11 → MEDS 06-21 16:49
PROVIDERS: Emergency Medicine; ADMIT Family Medicine
DX: A41.89 Other specified sepsis (principal); J96.21 Acute and chronic respiratory failure with hypoxia; J96.22 Acute and chronic respiratory failure with hypercapnia; J18.9 Pneumonia, unspecified organism; J44.0 Chronic obstructive pulmonary disease with (acute) lower respiratory infection; I13.0 Hypertensive heart and chronic kidney disease with heart failure and stage 1 through stage 4 chronic kidney disease, or unspecified chronic kidney disease; J44.1 Chronic obstructive pulmonary disease with (acute) exacerbation; E87.1 Hypo-osmolality and hyponatremia; I50.22 Chronic systolic (congestive) heart failure; B97.89 Other viral agents as the cause of diseases classified elsewhere; R65.20 Severe sepsis without septic shock; N18.3 Chronic kidney disease, stage 3 (moderate); F17.210 Nicotine dependence, cigarettes, uncomplicated; I48.91 Unspecified atrial fibrillation; F20.9 Schizophrenia, unspecified; E66.9 Obesity, unspecified; Z68.35 Body mass index [BMI] 35.0-35.9, adult; Z99.81 Dependence on supplemental oxygen; Z79.01 Long term (current) use of anticoagulants; Z79.82 Long term (current) use of aspirin
CPT/HCPCS: 0099U; 36415; 71045; 80053; 82803; 83605; 83880; 84145; 84484; 85025; 85610; 87040; 93005; 93010; 94640; 94760; 96365; 96375; 99285-25; J0456; J0696; J2405; J2930; J7050

== ENCOUNTER 2019-07-21 13:34 | Emergency (ER) | payer MEDICARE, OTHER ==
[~2019-07-21] VITALS: Ht 167.6 cm; Wt 90.7 kg
[~2019-07-21 13:34] MED LIST changes: +ONDA4; +PREG75 PO
[2019-07-21 14:43] LABS: BASOPHILS ABSOLUTE AUTO 0.04 K/mm3 (0.00-0.23); BASOPHILS PERCENT AUTO 0 % (0-2); EOSINOPHILS ABSOLUTE AUTO 0.34 K/mm3 (0.00-0.68); EOSINOPHILS PERCENT AUTO 2 % (0-6); Hematocrit 42.3 % (33.0-51.0); Hemoglobin 13.1 g/dL (11.5-16.0); IMMATURE GRAN ABSOLUTE AUTO 0.05 K/mm3 (0.00-0.10); IMMATURE GRAN PERCENT AUTO 0 % (0-1); LYMPHOCYTES ABSOLUTE AUTO 1.12 K/mm3 (0.84-5.20); LYMPHOCYTES PERCENT AUTO 8 % (21-46); MONOCYTES ABSOLUTE AUTO 0.86 K/mm3 (0.16-1.47); MONOCYTES PERCENT AUTO 6 % (4-13); Mean Corpuscular HGB 30.5 pg (26.0-34.0); Mean Corpuscular Volume 98 fL (80-100); Mean Platelet Volume 10.4 fL (9.1-12.4); NEUTROPHILS ABSOLUTE AUTO 11.59 K/mm3 (1.96-9.15); NEUTROPHILS PERCENT AUTO 83 % (41-73); Platelet Count 289 K/mm3 (150-400); RDW Coefficient Variation 14.6 % (11.7-14.2)
[2019-07-21 14:57] LABS: Alanine Aminotransfer (ALT/SGP 42 U/L (12-78); Albumin, Blood 3.4 g/dL (3.4-5.0); Albumin/Globulin Ratio 0.9 (0.8-1.8); Alk Phos 101 U/L (50-136); Anion Gap 7 mmol/L (6-16); Aspartate Aminotrans (AST/SGOT 35 U/L (12-37); Bilirubin, Total 0.5 mg/dL (0.1-1.0); Blood Urea Nitrogen 33 mg/dL (8-24); Bun/Creatinine Ratio 16.8 (12.0-20.0); CO2, Blood 28 mmol/L (21-32); Calcium, Blood 8.9 mg/dL (8.5-10.1); Chloride, Blood 98 mmol/L (98-108); Creatinine, Blood 1.97 mg/dL (0.40-1.00); Globulin, Blood 3.6 g/dL (2.2-4.0); Glomerular Filtration Rate 27 (60-); Glucose, Blood 139 mg/dL (70-99); Potassium, Blood 3.8 mmol/L (3.5-5.5); Sodium, Blood 133 mmol/L (136-145); Troponin I <0.015 ng/mL (0.000-0.040)
[2019-07-21 15:04] LABS: Digoxin (Lanoxin) 1.38 ug/mL (0.80-2.00)
== END 2019-07-21 17:20 | disposition home or self-care (01) ==
LOC: ER 13:34
PROVIDERS: Emergency Medicine
DX: R53.1 Weakness (principal); I10 Essential (primary) hypertension; J44.9 Chronic obstructive pulmonary disease, unspecified; F17.210 Nicotine dependence, cigarettes, uncomplicated; Z88.8 Allergy status to other drugs, medicaments and biological substances; Z88.2 Allergy status to sulfonamides; Z79.899 Other long term (current) drug therapy; Z79.51 Long term (current) use of inhaled steroids
CPT/HCPCS: 36415; 71045; 80053; 80162; 83880; 84484; 85025; 93005; 93010; 99285-25

== ENCOUNTER 2020-01-18 19:40 | Emergency (ER) | payer MEDICARE ==
[~2020-01-18] VITALS: Ht 165.1 cm; Wt 124.7 kg
[2020-01-18 19:54] LABS: BASOPHILS ABSOLUTE AUTO 0.08 K/mm3 (0.00-0.23); BASOPHILS PERCENT AUTO 1 % (0-2); EOSINOPHILS ABSOLUTE AUTO 0.21 K/mm3 (0.00-0.68); EOSINOPHILS PERCENT AUTO 2 % (0-6); Hematocrit 48.5 % (33.0-51.0); Hemoglobin 15.4 g/dL (11.5-16.0); IMMATURE GRAN ABSOLUTE AUTO 0.04 K/mm3 (0.00-0.10); IMMATURE GRAN PERCENT AUTO 0 % (0-1); LYMPHOCYTES ABSOLUTE AUTO 2.06 K/mm3 (0.84-5.20); LYMPHOCYTES PERCENT AUTO 18 % (21-46); MONOCYTES ABSOLUTE AUTO 0.86 K/mm3 (0.16-1.47); MONOCYTES PERCENT AUTO 8 % (4-13); Mean Corpuscular HGB 28.6 pg (26.0-34.0); Mean Corpuscular HGB Conc 31.8 g/dL (31.5-36.5); Mean Corpuscular Volume 90 fL (80-100); Mean Platelet Volume 10.5 fL (9.1-12.4); NEUTROPHILS ABSOLUTE AUTO 8.07 K/mm3 (1.96-9.15); NEUTROPHILS PERCENT AUTO 71 % (41-73); Platelet Count 459 K/mm3 (150-400); RDW Coefficient Variation 13.9 % (11.7-14.2); RDW Standard Deviation 46.7 fL (35.1-46.3); Red Blood Cell Count 5.39 M/mm3 (3.80-5.20); White Blood Cell Count 11.32 K/mm3 (4.00-11.30)
[2020-01-18 20:12] LABS: International Normalized Ratio 1.07; Prothrombin Time Results 11.4 Sec (9.7-11.5)
[2020-01-18] MEDS ORDERED: Cymbalta20 MG PO (20:18)
[2020-01-18 20:21] LABS: Troponin I <0.015 ng/mL (0.000-0.040)
[2020-01-18] MEDS ORDERED: Norvasc2.5 MG PO (20:21)
[2020-01-18] MEDS ORDERED: BUSP10 PO (20:22)
[2020-01-18] MEDS ORDERED: DRIZALMA SPRINK20 MG PO (20:23)
[2020-01-18] MEDS ORDERED: FLUTICASONE-SA1 EA12 (20:23)
[2020-01-18 20:24] LABS: Alanine Aminotransfer (ALT/SGP 25 U/L (12-78); Albumin, Blood 3.6 g/dL (3.4-5.0); Albumin/Globulin Ratio 1.1 (0.8-1.8); Alk Phos 125 U/L (50-136); Anion Gap 6 mmol/L (6-16); Aspartate Aminotrans (AST/SGOT 22 U/L (12-37); Bilirubin, Total 0.9 mg/dL (0.1-1.0); Blood Urea Nitrogen 18 mg/dL (8-24); Bun/Creatinine Ratio 11.5 (12.0-20.0); CO2, Blood 35 mmol/L (21-32); Calcium, Blood 9.5 mg/dL (8.5-10.1); Chloride, Blood 101 mmol/L (98-108); Creatinine, Blood 1.56 mg/dL (0.40-1.00); Globulin, Blood 3.3 g/dL (2.2-4.0); Glomerular Filtration Rate 35 (60-); Glucose, Blood 143 mg/dL (70-99); Potassium, Blood 3.6 mmol/L (3.5-5.5); Sodium, Blood 142 mmol/L (136-145); Total Protein, Blood 6.9 g/dL (6.4-8.2)
[2020-01-18] MEDS ORDERED: TORS10 PO (20:24)
[2020-01-18] MEDS ORDERED: PANT20 PO (20:24)
[2020-01-18 22:10] LABS: Digoxin (Lanoxin) 1.87 ug/mL (0.80-2.00)
[2020-01-18] MEDS ORDERED: Protonix40 MG PO (22:32)
[2020-01-18] MEDS ORDERED: ONDA4ODT MM (22:32)
== END 2020-01-18 23:15 | disposition home or self-care (01) ==
LOC: ER 19:40
PROVIDERS: Emergency Medicine
DX: R11.2 Nausea with vomiting, unspecified (principal); R10.33 Periumbilical pain; I10 Essential (primary) hypertension; J44.9 Chronic obstructive pulmonary disease, unspecified; F17.210 Nicotine dependence, cigarettes, uncomplicated; Z79.899 Other long term (current) drug therapy; Z88.2 Allergy status to sulfonamides; Z88.8 Allergy status to other drugs, medicaments and biological substances; Z79.51 Long term (current) use of inhaled steroids; Z79.01 Long term (current) use of anticoagulants; Z79.52 Long term (current) use of systemic steroids; Z20.828 Contact with and (suspected) exposure to other viral communicable diseases
CPT/HCPCS: 36415; 74022; 80053; 80162; 83880; 84484; 85025; 85610; 85730; 93005; 93010; 94640; 96374; 99284-25; A9270-GY; J2405; U0003

== ENCOUNTER 2020-10-30 09:29 | Emergency (ER) | payer MEDICARE ==
[~2020-10-30] VITALS: Ht 167.6 cm; Wt 72.6 kg
[~2020-10-30 09:29] MED LIST changes: +BUSP10 PO; +Cymbalta20 MG PO; +DRIZALMA SPRINK20 MG PO; +FLUTICASONE-SA1 EA12; +Norvasc2.5 MG PO; +Protonix40 MG PO; +TORS10 PO
[2020-10-30 10:07] LABS: BASOPHILS ABSOLUTE AUTO 0.06 K/mm3 (0.00-0.23); BASOPHILS PERCENT AUTO 0 % (0-2); EOSINOPHILS ABSOLUTE AUTO 0.63 K/mm3 (0.00-0.68); EOSINOPHILS PERCENT AUTO 4 % (0-6); Hemoglobin 12.1 g/dL (11.5-16.0); IMMATURE GRAN ABSOLUTE AUTO 0.06 K/mm3 (0.00-0.10); IMMATURE GRAN PERCENT AUTO 0 % (0-1); LYMPHOCYTES PERCENT AUTO 8 % (21-46); MONOCYTES ABSOLUTE AUTO 0.66 K/mm3 (0.16-1.47); MONOCYTES PERCENT AUTO 5 % (4-13); Mean Corpuscular HGB 28.6 pg (26.0-34.0); Mean Corpuscular HGB Conc 31.8 g/dL (31.5-36.5); Mean Corpuscular Volume 90 fL (80-100); Mean Platelet Volume 10.1 fL (9.1-12.4); NEUTROPHILS PERCENT AUTO 82 % (41-73); Platelet Count 359 K/mm3 (150-400); RDW Coefficient Variation 14.9 % (11.7-14.2); RDW Standard Deviation 48.8 fL (35.1-46.3); Red Blood Cell Count 4.23 M/mm3 (3.80-5.20); White Blood Cell Count 14.21 K/mm3 (4.00-11.30)
[2020-10-30 10:42] LABS: Troponin I <0.015 ng/mL (0.000-0.040)
[2020-10-30 10:43] LABS: Alanine Aminotransfer (ALT/SGP 20 U/L (12-78); Albumin, Blood 3.6 g/dL (3.4-5.0); Alk Phos 112 U/L (50-136); Anion Gap 4 mmol/L (6-16); Aspartate Aminotrans (AST/SGOT 14 U/L (12-37); Bilirubin, Total 0.8 mg/dL (0.1-1.0); Blood Urea Nitrogen 18 mg/dL (8-24); Bun/Creatinine Ratio 13.2 (12.0-20.0); CO2, Blood 28 mmol/L (21-32); Calcium, Blood 8.9 mg/dL (8.5-10.1); Chloride, Blood 109 mmol/L (98-108); Creatinine, Blood 1.36 mg/dL (0.40-1.00); Globulin, Blood 3.6 g/dL (2.2-4.0); Glomerular Filtration Rate 38 (60-); Glucose, Blood 135 mg/dL (70-99); Sodium, Blood 141 mmol/L (136-145); Total Protein, Blood 7.2 g/dL (6.4-8.2)
[2020-10-30] MEDS ORDERED: AMOCLA875 PO (13:03)
[2020-10-30] MEDS ORDERED: DOXY100 PO (13:03)
[2020-10-30] MEDS ORDERED: PRED20 PO (19:02)
== END 2020-10-30 13:37 | disposition home or self-care (01) ==
LOC: ER 09:29
PROVIDERS: Student in an Organized Health Care Education/Training Program
DX: J44.0 Chronic obstructive pulmonary disease with (acute) lower respiratory infection (principal); J18.9 Pneumonia, unspecified organism; J44.1 Chronic obstructive pulmonary disease with (acute) exacerbation; F17.210 Nicotine dependence, cigarettes, uncomplicated; I10 Essential (primary) hypertension; D72.829 Elevated white blood cell count, unspecified; Z88.2 Allergy status to sulfonamides; Z88.8 Allergy status to other drugs, medicaments and biological substances
CPT/HCPCS: 36415; 71045; 80053; 83880; 84484; 85025; 93005; 93010; 94640; 96365; 96366; 96375; 99285-25; A9270; J0696; J2930; J3475

== ENCOUNTER 2020-11-16 15:14 | Observation (INO) | payer MEDICARE ==
[~2020-11-16] VITALS: Ht 167.6 cm; Wt 79.4 kg
[~2020-11-16 15:14] MED LIST changes: +AMOCLA875 PO; +DOXY100 PO
[2020-11-16 16:06] LABS: BASOPHILS ABSOLUTE AUTO 0.05 K/mm3 (0.00-0.23); BASOPHILS PERCENT AUTO 1 % (0-2); EOSINOPHILS ABSOLUTE AUTO 0.48 K/mm3 (0.00-0.68); EOSINOPHILS PERCENT AUTO 5 % (0-6); Hematocrit 39.5 % (33.0-51.0); Hemoglobin 12.3 g/dL (11.5-16.0); IMMATURE GRAN ABSOLUTE AUTO 0.04 K/mm3 (0.00-0.10); IMMATURE GRAN PERCENT AUTO 0 % (0-1); LYMPHOCYTES ABSOLUTE AUTO 2.39 K/mm3 (0.84-5.20); LYMPHOCYTES PERCENT AUTO 23 % (21-46); MONOCYTES ABSOLUTE AUTO 0.73 K/mm3 (0.16-1.47); MONOCYTES PERCENT AUTO 7 % (4-13); Mean Corpuscular HGB 27.8 pg (26.0-34.0); Mean Corpuscular HGB Conc 31.1 g/dL (31.5-36.5); Mean Corpuscular Volume 89 fL (80-100); Mean Platelet Volume 10.7 fL (9.1-12.4); NEUTROPHILS ABSOLUTE AUTO 6.68 K/mm3 (1.96-9.15); NEUTROPHILS PERCENT AUTO 65 % (41-73); Platelet Count 371 K/mm3 (150-400); RDW Coefficient Variation 14.6 % (11.7-14.2); RDW Standard Deviation 47.6 fL (35.1-46.3); Red Blood Cell Count 4.42 M/mm3 (3.80-5.20); White Blood Cell Count 10.37 K/mm3 (4.00-11.30)
[2020-11-16 16:36] LABS: Troponin I <0.015 ng/mL (0.000-0.040)
[2020-11-16 16:37] LABS: Alanine Aminotransfer (ALT/SGP 18 U/L (12-78); Albumin, Blood 3.5 g/dL (3.4-5.0); Albumin/Globulin Ratio 1.1 (0.8-1.8); Alk Phos 87 U/L (50-136); Anion Gap 6 mmol/L (6-16); Aspartate Aminotrans (AST/SGOT 11 U/L (12-37); Bilirubin, Total 0.4 mg/dL (0.1-1.0); Blood Urea Nitrogen 23 mg/dL (8-24); Bun/Creatinine Ratio 13.1 (12.0-20.0); CO2, Blood 26 mmol/L (21-32); Calcium, Blood 8.7 mg/dL (8.5-10.1); Chloride, Blood 108 mmol/L (98-108); Creatinine, Blood 1.76 mg/dL (0.40-1.00); Globulin, Blood 3.3 g/dL (2.2-4.0); Glomerular Filtration Rate 29 (60-); Glucose, Blood 80 mg/dL (70-99); Potassium, Blood 3.9 mmol/L (3.5-5.5); Sodium, Blood 140 mmol/L (136-145); Total Protein, Blood 6.8 g/dL (6.4-8.2)
[2020-11-16 16:42] LABS: Digoxin (Lanoxin) 2.32 ug/mL (0.80-2.00)
[2020-11-16] MEDS ORDERED: AMLODIPINE BESYL5 MG PO (17:48)
[2020-11-16] MEDS ORDERED: OLANZAPINE PO (17:48)
[2020-11-16] MEDS ORDERED: CARVEDILOL PO (17:48)
[2020-11-16] MEDS ORDERED: SPIRONOLACTONE25 MG PO (17:49)
[2020-11-16] MEDS ORDERED: BUSPIRONE HCL10 M4 PO (17:49)
[2020-11-16] MEDS ORDERED: PREGABALIN100 MG PO (17:49)
[2020-11-16] MEDS ORDERED: LANOXIN125 MCG PO (17:49)
[2020-11-16] MEDS ORDERED: TORSE20 PO (17:50)
--- NOTE | 2020-11-17 00:18 | NUR ---
PATIENT IS A NEW ADMIT FROM THE ED. ARRIVED VIA W/C AND SBA TO BED. PLACED ON 3L O2 N/C AND BASELINE. AXOX 3 AND FORGETFUL. TELEMETRY PLACED AND TECH REPORTS A-FIB 61. DENIES CHEST PAIN AND N/V. REPORTS SMOKING CANNABIS DAILY. ORIENTED TO ROOM AND CALL LIGHT SYSTEM. WATCHED TV AFTER ASSESSMENT. CALL LIGHT IN REACH.
[2020-11-17 03:39] LABS: SARS-Cov-2 (COVID-19) PCR, MMC NEGATIVE (NEGATIVE)
--- NOTE | 2020-11-17 03:54 | NUR ---
COVID-19 SWAB COLLECTED AND SENT TO LAB.
--- NOTE | 2020-11-17 04:38 | NUR ---
SHIFT SUMMARY PATIENT HAD NO ACUTE CHANGES OBSERVED. AXOX 3 FORGETFUL. PATIENT PULLING TELE STICKERS OFF AFTER BEING REPLACED, WHEN REMINDED TO LEAVE ON. ON 3L O2 NC AND BASELINE. PIV REMAINS INTACT. MARINE UNDERWRITER REPORTS AFIB 61. DENIES CHEST PAIN, SOB, AND N/V. VSS/AFEBRILE. TAKES MEDICATION WHOLE WITH WATER. CALL LIGHT IN REACH. BED IN LOWEST POSITION. WILL CONTINUE TO MONITOR UNTIL DAY SHIFT NURSE ASSUMES CARE.
[2020-11-17 06:07] LABS: Albumin, Blood 3.1 g/dL (3.4-5.0); Bilirubin, Total 0.6 mg/dL (0.1-1.0); Bun/Creatinine Ratio 12.2 (12.0-20.0); Calcium, Blood 8.7 mg/dL (8.5-10.1); Creatinine, Blood 1.72 mg/dL (0.40-1.00); Globulin, Blood 3.1 g/dL (2.2-4.0); Magnesium, Blood 2.1 mg/dL (1.6-2.4); Phosphorus, Blood 3.7 mg/dL (2.5-4.9); Potassium, Blood 3.5 mmol/L (3.5-5.5); Thyroid Stimulating Hormone 1.11 uIU/mL (0.360-4.800); Total Protein, Blood 6.2 g/dL (6.4-8.2)
[2020-11-17 08:08] LABS: Digoxin (Lanoxin) 1.79 ug/mL (0.80-2.00)
[2020-11-17] MEDS ORDERED: PANT20 PO (09:32)
--- NOTE | 2020-11-17 10:50 | NUR ---
DC PT/OT EVAL PATIENT AMBULATING IN [facility]. V.O. FROM DR. DE LA ROSA TO D/C PT/OT EVAL.
--- NOTE | 2020-11-17 13:18 | NUR ---
Discharge Summary A/Ox3, very forgetful. Pleasant and cooperative. Very restless. Discharing home with daughter. Reviewed discharge paperwork with daughter Tasha over the phone. Discharge packet given to patient. Questions answered to her satisfaction. No personal belongings except clothes patient currently has on per patient state. No new meds. Escorted by TOBIN Fish.
== END 2020-11-17 13:02 | disposition home or self-care (01) ==
LOC: ER 15:14 → ERHOLD 15:15 → ER 16:07 → MEDS 20:32
PROVIDERS: Emergency Medicine; Student in an Organized Health Care Education/Training Program; ADMIT Internal Medicine
DX: I48.20 Chronic atrial fibrillation, unspecified (principal); R00.1 Bradycardia, unspecified; I13.0 Hypertensive heart and chronic kidney disease with heart failure and stage 1 through stage 4 chronic kidney disease, or unspecified chronic kidney disease; I50.22 Chronic systolic (congestive) heart failure; N18.30 Chronic kidney disease, stage 3 unspecified; J44.9 Chronic obstructive pulmonary disease, unspecified; F17.210 Nicotine dependence, cigarettes, uncomplicated; R19.7 Diarrhea, unspecified; E86.0 Dehydration; F20.9 Schizophrenia, unspecified; K21.9 Gastro-esophageal reflux disease without esophagitis; Z99.81 Dependence on supplemental oxygen; Z20.822 Contact with and (suspected) exposure to COVID-19
CPT/HCPCS: 36415; 71045; 80053; 80162; 83735; 83880; 84100; 84443; 84484; 85025; 93005; 93010; 96360; 96372; 99285-25; A9270; C9113; G0378; J1650; J7030; U0004

== ENCOUNTER 2022-02-13 01:57 | Emergency (ER) | payer MEDICARE ==
[~2022-02-13] VITALS: Ht 154.9 cm; Wt 80.3 kg
[~2022-02-13 01:57] MED LIST changes: +AMLODIPINE BESYL5 MG PO; +BUSPIRONE HCL10 M4 PO; +CARVEDILOL PO; +OLANZAPINE PO; +PREGABALIN100 MG PO; +SPIRONOLACTONE25 MG PO
[2022-02-13 02:41] LABS: Source, Urine Foley catheter
[2022-02-13 02:58] LABS: Appearance, Urine Clear (Clear); Bilirubin, Urine Neg (Neg); Blood, Urine Neg (Neg); Color, Urine Yellow (P-Yellow); Glucose Qualitative, Urine Neg (Neg); Ketones, Urine Neg (Neg); Leukocyte Esterase, Urine 2+ (Neg); Nitrite, Urine Pos (Neg); Protein, Urine 1+ (Neg); Urobilinogen, Urine NORM (Normal)
[2022-02-13 03:13] LABS: Red Blood Cells, Urine 0-2 /hpf (0-2)
[2022-02-13 03:14] LABS: Bacteria Many /hpf; Squamous Epithelial Cells Few /hpf (Few)
[2022-02-13] MEDS ORDERED: CEPH500 PO (03:31)
== END 2022-02-13 04:05 | disposition home or self-care (01) ==
LOC: ER 01:57
PROVIDERS: Emergency Medicine
DX: R33.9 Retention of urine, unspecified (principal); N39.0 Urinary tract infection, site not specified; I13.0 Hypertensive heart and chronic kidney disease with heart failure and stage 1 through stage 4 chronic kidney disease, or unspecified chronic kidney disease; N18.30 Chronic kidney disease, stage 3 unspecified; I50.20 Unspecified systolic (congestive) heart failure; F17.210 Nicotine dependence, cigarettes, uncomplicated; Z88.2 Allergy status to sulfonamides; Z88.8 Allergy status to other drugs, medicaments and biological substances; Z79.899 Other long term (current) drug therapy
CPT/HCPCS: 51702; 51798; 81001; 87077; 87086; 87186

== ENCOUNTER 2022-03-03 06:44 | Inpatient (IN) | payer MEDICARE ==
[~2022-03-03] VITALS: Ht 167.6 cm; Wt 75.5 kg
[2022-03-03 07:10] LABS: Base Excess Venous 7.2 mmol/L; Bicarbonate Venous 29.7 mmol/L (24.0-30.0); PO2 Venous 171 mmHg (38-42); pH Blood Venous 7.37 (7.34-7.37)
[2022-03-03 07:10] LABS: BASOPHILS ABSOLUTE AUTO 0.08 K/mm3 (0.00-0.23); BASOPHILS PERCENT AUTO 0 % (0-2); EOSINOPHILS ABSOLUTE AUTO 1.02 K/mm3 (0.00-0.68); EOSINOPHILS PERCENT AUTO 5 % (0-6); Hematocrit 36.7 % (33.0-51.0); Hemoglobin 11.8 g/dL (11.5-16.0); IMMATURE GRAN ABSOLUTE AUTO 0.09 K/mm3 (0.00-0.10); IMMATURE GRAN PERCENT AUTO 1 % (0-1); LYMPHOCYTES ABSOLUTE AUTO 2.62 K/mm3 (0.84-5.20); LYMPHOCYTES PERCENT AUTO 13 % (21-46); MONOCYTES ABSOLUTE AUTO 0.75 K/mm3 (0.16-1.47); MONOCYTES PERCENT AUTO 4 % (4-13); Mean Corpuscular HGB 28.4 pg (26.0-34.0); Mean Corpuscular HGB Conc 32.2 g/dL (31.5-36.5); Mean Corpuscular Volume 88 fL (80-100); Mean Platelet Volume 10.4 fL (9.1-12.4); NEUTROPHILS ABSOLUTE AUTO 15.24 K/mm3 (1.96-9.15); NEUTROPHILS PERCENT AUTO 77 % (41-73); Platelet Count 532 K/mm3 (150-400); Red Blood Cell Count 4.15 M/mm3 (3.80-5.20)
[2022-03-03 07:28] LABS: Albumin, Blood 3.2 g/dL (3.4-5.0); Albumin/Globulin Ratio 0.9 (0.8-1.8); Bilirubin, Total 0.6 mg/dL (0.1-1.0); Bun/Creatinine Ratio 18.4 (12.0-20.0); Calcium, Blood 8.7 mg/dL (8.5-10.1); Creatinine, Blood 1.47 mg/dL (0.40-1.00); Globulin, Blood 3.6 g/dL (2.2-4.0); Magnesium, Blood 2.3 mg/dL (1.6-2.4); Potassium, Blood 3.1 mmol/L (3.5-5.5); Total Protein, Blood 6.8 g/dL (6.4-8.2)
[2022-03-03 07:58] LABS: Influenza A, PCR NEGATIVE (NEGATIVE); Influenza B, PCR NEGATIVE (NEGATIVE); Resp Syncytial Virus, PCR NEGATIVE (NEGATIVE); SARS-Cov-2 (COVID-19) PCR, MMC NEGATIVE (NEGATIVE)
[2022-03-03] MEDS ORDERED: TRAM50 PO (14:43)
[2022-03-03] MEDS ORDERED: OLAN5 PO (14:44)
[2022-03-03] MEDS ORDERED: Aspir 8181 MG PO (14:47)
[2022-03-03] MEDS ORDERED: XARELTO PO (14:48)
--- NOTE | 2022-03-03 15:29 | NUR ---
CALLED DR DE LA ROSA- PT HOME MED REC COMPLETED WITH HER FAMILY USING THE PT HOME MED BOTTLES REFERENCE. MED LIST HAS MULTIPLE DOSE CHANGES AND NEW MEDS AND DC'D MEDS. CALLED DR DE LA ROSA SHE IS AWARE THE HOME MED REC IS NOW COMPLETED.
--- NOTE | 2022-03-03 18:27 | NUR ---
SHIFT SUMMARY- PT ALERT AND ORIENTED TO SELF AND FAMILY. PT HAS A Hx AFIB. LISTENING FOR 2 MINUTES TO AMICAL PULS REVEALED HR OF 48 AND THEN 66 THE NEXT MINUTE. CALLED DR HERNDON AND RECIEVED OK TO HOLD EVENING CARVEDILOL AND PLACE THE PT ON TELE. BIOX WAS ALARMING CONTINUIOUSLY R/T LOW HR RATHER THAN LOW O2 SATS. SATS WERE RUNNING 97% ON 3L VIA NC. PT REQUESTED TO BE PLACED BACK ON THE BIPAP MACHINE, SHE CONVEYED THAT SHE IS AFRAID SHE WONT WAKE UP IF SHE GOES TO SLEEP. STAFF ARE CHECKING IN FREQUENTLY WITH THE PT TO ENSURE COMFORT. TELE PLACED HR CURRENTLY 98 AFIB WITH BIGEMINAL PVC'S. RT AT THE BEDSIDE PT CONVEYED ANXIETY. WILL SEE IF THERE IS MEDICATION FOR ANXIETY IN EMAR AND MEDICATE IF AVAILABLE.
[2022-03-04 02:45] LABS: Source, Urine Foley catheter
[2022-03-04 03:32] LABS: Bilirubin, Urine Neg (Neg); Blood, Urine Neg (Neg); Color, Urine Yellow (P-Yellow); Glucose Qualitative, Urine Neg (Neg); Ketones, Urine Neg (Neg); Leukocyte Esterase, Urine 1+ (Neg); Nitrite, Urine Neg (Neg); Protein, Urine Neg (Neg); Specific Gravity, Urine 1.015 (1.003-1.022); Urobilinogen, Urine NORM (Normal)
--- NOTE | 2022-03-04 04:17 | NUR ---
SHIFT SUMMARY ADMITTED FOR COPD EXACERBATION/RESPIRATORY FAILURE. FULL CODE. SOLUMEDROL AND PO ANTIB RX ARE SCHEDULED. BIPAP AND CONTINUOUS PULSE OX IN PLACE. TELEMETRY: AFIB @ 82 BPM. SHAVER CATHETER PLACED 3 WEEKS AGO BY NEPHROLOGY. SHAVER CATHETER REPLACED THIS SHIFT. HX OF INADEQUATE CATHETER CARE NOTED WHEN CHANGING CATHETER OUT. HX OF UTI. CARDIAC DIET. A&O X4, ANXIETY NOTED. ANXIETY RX GIVEN THIS SHIFT. 3 LPM O2 AT HOME. MX WBC & ELECTROLYTE LABS. SHE IS ON XARELTO.
[2022-03-04 04:58] LABS: Appearance, Urine Hazy (Clear); Red Blood Cells, Urine 0-2 /hpf (0-2); Squamous Epithelial Cells Few /hpf (Few)
[2022-03-04 04:59] LABS: Bacteria Few /hpf; Renal Epithelial Few /hpf (0-Rare)
[2022-03-04 05:34] LABS: Hematocrit 33.4 % (33.0-51.0); Hemoglobin 11.1 g/dL (11.5-16.0); Mean Corpuscular HGB 28.3 pg (26.0-34.0); Mean Corpuscular HGB Conc 33.2 g/dL (31.5-36.5); Mean Corpuscular Volume 85 fL (80-100); Platelet Count 478 K/mm3 (150-400); RDW Coefficient Variation 15.3 % (11.7-14.2); RDW Standard Deviation 47.2 fL (35.1-46.3); Red Blood Cell Count 3.92 M/mm3 (3.80-5.20); White Blood Cell Count 21.36 K/mm3 (4.00-11.30)
[2022-03-04 05:43] LABS: Bun/Creatinine Ratio 28.5 (12.0-20.0); Creatinine, Blood 1.3 mg/dL (0.40-1.00)
--- NOTE | 2022-03-04 20:23 | NUR ---
SHIFT SUMMARY- PT HAS SHOWN GREAT IMPROVEMENT IN HER BREATHING TOWARDS THE END OF THE SHIFT. PT HAS NOT USED THE BIPAP EXCEPT WHEN SHE IS SLEEPING. ATARAX WAS GIVEN SEVERAL TIMES FOR ANXIETY. PT IN BED, BIPAP IN PLACE, NO S&S OF DISTRESS AT THE TIME OF BEDSIDE REPORT WITH NIGHT RN.
--- NOTE | 2022-03-05 06:17 | NUR ---
SHIFT SUMMARY; NO ACUTE CHANGES OVERNIGHT. PT SLEPT IN BED THROUGHOUT THE NIGHT. PT WITH CPAP ON ALL NIGHT WITH 2L BLEED IN, O2 SATS REMAINED GREATER THAN 95% THROUGHOUT THE NIGHT. PT DENIES ANY PAIN OR SOB. PT DID REQUEST HER ANXIETY MEDS LAST NIGHT TWICE. PT CURRENTLY RESTING IN BED WITH THE CALL LIGHT AT BEDSIDE.
[2022-03-05 06:40] LABS: BASOPHILS ABSOLUTE AUTO 0.02 K/mm3 (0.00-0.23); BASOPHILS PERCENT AUTO 0 % (0-2); EOSINOPHILS PERCENT AUTO 0 % (0-6); Hematocrit 34.6 % (33.0-51.0); Hemoglobin 11.3 g/dL (11.5-16.0); IMMATURE GRAN ABSOLUTE AUTO 0.18 K/mm3 (0.00-0.10); IMMATURE GRAN PERCENT AUTO 1 % (0-1); LYMPHOCYTES ABSOLUTE AUTO 0.91 K/mm3 (0.84-5.20); LYMPHOCYTES PERCENT AUTO 4 % (21-46); MONOCYTES ABSOLUTE AUTO 0.14 K/mm3 (0.16-1.47); MONOCYTES PERCENT AUTO 1 % (4-13); Mean Corpuscular HGB 28.3 pg (26.0-34.0); Mean Corpuscular HGB Conc 32.7 g/dL (31.5-36.5); Mean Corpuscular Volume 87 fL (80-100); Mean Platelet Volume 10.5 fL (9.1-12.4); NEUTROPHILS ABSOLUTE AUTO 21.17 K/mm3 (1.96-9.15); NEUTROPHILS PERCENT AUTO 94 % (41-73); Platelet Count 469 K/mm3 (150-400); RDW Coefficient Variation 15.7 % (11.7-14.2); RDW Standard Deviation 49.2 fL (35.1-46.3); Red Blood Cell Count 3.99 M/mm3 (3.80-5.20); White Blood Cell Count 22.42 K/mm3 (4.00-11.30)
[2022-03-05 07:18] LABS: Albumin/Globulin Ratio 0.9 (0.8-1.8); Bilirubin, Total 0.5 mg/dL (0.1-1.0); Bun/Creatinine Ratio 31.7 (12.0-20.0); Calcium, Blood 9.1 mg/dL (8.5-10.1); Creatinine, Blood 1.26 mg/dL (0.40-1.00); Globulin, Blood 3.4 g/dL (2.2-4.0); Potassium, Blood 3.2 mmol/L (3.5-5.5); Total Protein, Blood 6.4 g/dL (6.4-8.2)
[2022-03-05] MEDS ORDERED: ALBU2.5V5 INH (13:58)
[2022-03-05] MEDS ORDERED: ACET325 PO (13:58)
[2022-03-05] MEDS ORDERED: AZIT500 PO (13:59)
[2022-03-05] MEDS ORDERED: ALBU90OI INH (13:59)
[2022-03-05] MEDS ORDERED: AIRDUO RESPICL1 EAC4 INH (14:00)
[2022-03-05] MEDS ORDERED: PRED20 PO (14:00)
[2022-03-05] MEDS ORDERED: HYDHCL25 PO (14:00)
--- NOTE | 2022-03-05 16:00 | NUR ---
PT DC'D HOME WITH DC INSTRUCTIONS, DAUGHTER PRESENT TO HEAR- HOME WITH OWN OXYGEN TANK. RX FAXED FOR FAMILY TO CONT WITH MED REGIMINE. STATE UNDERSTANDING OF INSTRUCTIONS
== END 2022-03-05 15:39 | disposition home health service (06) | DRG 189 ==
LOC: ER 06:44 → ERHOLD 09:39 → MEDS 14:22
PROVIDERS: Family Medicine; Student in an Organized Health Care Education/Training Program; ADMIT Internal Medicine
PROC: 5A09457 Assistance with Respiratory Ventilation, 24-96 Consecutive Hours, Continuous Positive Airway Pressure (ICD-10-PCS; principal; 2022-03-03)
DX: J96.21 Acute and chronic respiratory failure with hypoxia (principal); J44.1 Chronic obstructive pulmonary disease with (acute) exacerbation; I13.0 Hypertensive heart and chronic kidney disease with heart failure and stage 1 through stage 4 chronic kidney disease, or unspecified chronic kidney disease; I48.20 Chronic atrial fibrillation, unspecified; I50.32 Chronic diastolic (congestive) heart failure; Z20.822 Contact with and (suspected) exposure to COVID-19; N18.30 Chronic kidney disease, stage 3 unspecified; F17.210 Nicotine dependence, cigarettes, uncomplicated; E66.9 Obesity, unspecified; F25.1 Schizoaffective disorder, depressive type; E87.6 Hypokalemia; K21.9 Gastro-esophageal reflux disease without esophagitis; G62.9 Polyneuropathy, unspecified; J96.22 Acute and chronic respiratory failure with hypercapnia; Z68.27 Body mass index [BMI] 27.0-27.9, adult; Z88.2 Allergy status to sulfonamides; Z88.8 Allergy status to other drugs, medicaments and biological substances; Z99.81 Dependence on supplemental oxygen; Z90.13 Acquired absence of bilateral breasts and nipples; Z90.89 Acquired absence of other organs; Z90.710 Acquired absence of both cervix and uterus; Z98.890 Other specified postprocedural states
CPT/HCPCS: 0241U; 36415; 71045; 80048; 80053; 81001; 82803; 83735; 83880; 84132; 84145; 85025; 85027; 87086; 93005; 93010; 94640; 94660; 94664; 94667; 94762; 97162; 97530; 98960; A9270; C9113; J2930; J3480; J7050; J7512

== ENCOUNTER 2022-04-01 15:06 | Emergency (ER) | payer MEDICARE ==
[~2022-04-01] VITALS: Ht 167.6 cm; Wt 72.6 kg
[~2022-04-01 15:06] MED LIST changes: +AIRDUO RESPICL1 EAC4 INH; +ALBU2.5V5 INH; +AZIT500 PO; +HYDHCL25 PO; +OLAN5 PO; +TRAM50 PO; +XARELTO PO
[2022-04-01 15:55] LABS: BASOPHILS ABSOLUTE AUTO 0.07 K/mm3 (0.00-0.23); BASOPHILS PERCENT AUTO 0 % (0-2); EOSINOPHILS ABSOLUTE AUTO 0.44 K/mm3 (0.00-0.68); EOSINOPHILS PERCENT AUTO 2 % (0-6); Hematocrit 36.9 % (33.0-51.0); Hemoglobin 12.3 g/dL (11.5-16.0); IMMATURE GRAN ABSOLUTE AUTO 0.12 K/mm3 (0.00-0.10); IMMATURE GRAN PERCENT AUTO 1 % (0-1); LYMPHOCYTES ABSOLUTE AUTO 2.57 K/mm3 (0.84-5.20); LYMPHOCYTES PERCENT AUTO 14 % (21-46); MONOCYTES ABSOLUTE AUTO 0.87 K/mm3 (0.16-1.47); MONOCYTES PERCENT AUTO 5 % (4-13); Mean Corpuscular HGB 28.5 pg (26.0-34.0); Mean Corpuscular HGB Conc 33.3 g/dL (31.5-36.5); Mean Corpuscular Volume 86 fL (80-100); NEUTROPHILS ABSOLUTE AUTO 14.66 K/mm3 (1.96-9.15); NEUTROPHILS PERCENT AUTO 78 % (41-73); Platelet Count 556 K/mm3 (150-400); RDW Coefficient Variation 15.7 % (11.7-14.2); RDW Standard Deviation 49.1 fL (35.1-46.3); Red Blood Cell Count 4.31 M/mm3 (3.80-5.20); White Blood Cell Count 18.73 K/mm3 (4.00-11.30)
[2022-04-01 16:07] LABS: Albumin, Blood 4.1 g/dL (3.4-5.0); Albumin/Globulin Ratio 1.2 (0.8-1.8); Bilirubin, Total 0.7 mg/dL (0.1-1.0); Bun/Creatinine Ratio 11.9 (12.0-20.0); Calcium, Blood 9.9 mg/dL (8.5-10.1); Creatinine, Blood 1.35 mg/dL (0.40-1.00); Globulin, Blood 3.3 g/dL (2.2-4.0); Potassium, Blood 3.2 mmol/L (3.5-5.5); Total Protein, Blood 7.4 g/dL (6.4-8.2)
== END 2022-04-01 19:55 | disposition home or self-care (01) ==
LOC: ER 15:06
PROVIDERS: Physician Assistant
DX: J44.1 Chronic obstructive pulmonary disease with (acute) exacerbation (principal); F17.210 Nicotine dependence, cigarettes, uncomplicated; J96.00 Acute respiratory failure, unspecified whether with hypoxia or hypercapnia; E87.6 Hypokalemia; I13.0 Hypertensive heart and chronic kidney disease with heart failure and stage 1 through stage 4 chronic kidney disease, or unspecified chronic kidney disease; N18.30 Chronic kidney disease, stage 3 unspecified; I50.20 Unspecified systolic (congestive) heart failure; I48.91 Unspecified atrial fibrillation; Z88.2 Allergy status to sulfonamides; Z88.8 Allergy status to other drugs, medicaments and biological substances; Z79.899 Other long term (current) drug therapy; Z79.82 Long term (current) use of aspirin; Z79.01 Long term (current) use of anticoagulants; Z99.81 Dependence on supplemental oxygen
CPT/HCPCS: 36415; 71045; 80053; 83880; 84484; 85025; 93005; 93010; 94644; 94645; 94664; J1940; J2930

== ENCOUNTER 2022-04-08 19:17 | Emergency (ER) | payer MEDICARE ==
[~2022-04-08] VITALS: Ht 167.6 cm; Wt 72.6 kg
[2022-04-08 20:26] LABS: BASOPHILS ABSOLUTE AUTO 0.06 K/mm3 (0.00-0.23); BASOPHILS PERCENT AUTO 0 % (0-2); EOSINOPHILS ABSOLUTE AUTO 0.24 K/mm3 (0.00-0.68); EOSINOPHILS PERCENT AUTO 1 % (0-6); Hematocrit 36.2 % (33.0-51.0); IMMATURE GRAN ABSOLUTE AUTO 0.09 K/mm3 (0.00-0.10); IMMATURE GRAN PERCENT AUTO 1 % (0-1); LYMPHOCYTES ABSOLUTE AUTO 2.37 K/mm3 (0.84-5.20); LYMPHOCYTES PERCENT AUTO 13 % (21-46); MONOCYTES PERCENT AUTO 5 % (4-13); Mean Corpuscular HGB 28.5 pg (26.0-34.0); Mean Corpuscular HGB Conc 33.1 g/dL (31.5-36.5); Mean Corpuscular Volume 86 fL (80-100); Mean Platelet Volume 9.7 fL (9.1-12.4); NEUTROPHILS ABSOLUTE AUTO 15.12 K/mm3 (1.96-9.15); NEUTROPHILS PERCENT AUTO 81 % (41-73); Platelet Count 497 K/mm3 (150-400); RDW Coefficient Variation 15.3 % (11.7-14.2); RDW Standard Deviation 47.8 fL (35.1-46.3); Red Blood Cell Count 4.21 M/mm3 (3.80-5.20); White Blood Cell Count 18.78 K/mm3 (4.00-11.30)
[2022-04-08 20:35] LABS: Albumin, Blood 3.6 g/dL (3.4-5.0); Albumin/Globulin Ratio 1.1 (0.8-1.8); Bilirubin, Total 0.6 mg/dL (0.1-1.0); Bun/Creatinine Ratio 17.6 (12.0-20.0); Calcium, Blood 9.4 mg/dL (8.5-10.1); Creatinine, Blood 1.65 mg/dL (0.40-1.00); Globulin, Blood 3.4 g/dL (2.2-4.0); Potassium, Blood 3.9 mmol/L (3.5-5.5)
[2022-04-08 23:04] LABS: Source, Urine Clean Catch
[2022-04-08 23:19] LABS: Appearance, Urine Cloudy (Clear); Bilirubin, Urine Neg (Neg); Blood, Urine 5+ (Neg); Color, Urine Red (P-Yellow); Glucose Qualitative, Urine Neg (Neg); Ketones, Urine Neg (Neg); Leukocyte Esterase, Urine 3+ (Neg); Nitrite, Urine Neg (Neg); Protein, Urine 3+ (Neg); Specific Gravity, Urine 1.015 (1.003-1.022); Urobilinogen, Urine NORM (Normal)
[2022-04-08 23:43] LABS: Source, Urine Foley catheter
[2022-04-08 23:46] LABS: Bilirubin, Urine Neg (Neg); Blood, Urine 5+ (Neg); Glucose Qualitative, Urine Neg (Neg); Ketones, Urine Neg (Neg); Leukocyte Esterase, Urine 3+ (Neg); Nitrite, Urine Neg (Neg); Protein, Urine 2+ (Neg); Specific Gravity, Urine 1.015 (1.003-1.022); Urobilinogen, Urine NORM (Normal)
[2022-04-08 23:57] LABS: Bacteria Many /hpf; Red Blood Cells, Urine TNTC /hpf (0-2); Squamous Epithelial Cells Rare /hpf (Few)
[2022-04-09 00:20] LABS: Appearance, Urine Hazy (Clear); Color, Urine Yellow (P-Yellow)
[2022-04-09 00:22] LABS: Bacteria Many /hpf; Squamous Epithelial Cells Rare /hpf (Few)
[2022-04-09] MEDS ORDERED: DOC250 PO (02:18)
[2022-04-09] MEDS ORDERED: CEFP200 PO (02:18)
== END 2022-04-09 02:28 | disposition home or self-care (01) ==
LOC: ER 19:17
PROVIDERS: Emergency Medicine; Physician Assistant
DX: N39.0 Urinary tract infection, site not specified (principal); K59.00 Constipation, unspecified; J44.9 Chronic obstructive pulmonary disease, unspecified; I13.0 Hypertensive heart and chronic kidney disease with heart failure and stage 1 through stage 4 chronic kidney disease, or unspecified chronic kidney disease; N18.30 Chronic kidney disease, stage 3 unspecified; I50.20 Unspecified systolic (congestive) heart failure; F17.210 Nicotine dependence, cigarettes, uncomplicated; Z79.899 Other long term (current) drug therapy; Z79.82 Long term (current) use of aspirin; Z79.02 Long term (current) use of antithrombotics/antiplatelets; Z79.52 Long term (current) use of systemic steroids; Z96.0 Presence of urogenital implants
CPT/HCPCS: 36415; 51702; 74018; 74177; 80053; 81001; 85025; J0696; J2405; J3010; J7030; Q9967

== ENCOUNTER 2022-04-12 10:18 | Emergency (ER) | payer MEDICARE ==
[~2022-04-12] VITALS: Ht 167.6 cm; Wt 72.6 kg
[~2022-04-12 10:18] MED LIST changes: +CEFP200 PO
== END 2022-04-12 15:18 | disposition left against medical advice (07) ==
LOC: ER 10:18
DX: K59.00 Constipation, unspecified (principal); J44.9 Chronic obstructive pulmonary disease, unspecified; I13.0 Hypertensive heart and chronic kidney disease with heart failure and stage 1 through stage 4 chronic kidney disease, or unspecified chronic kidney disease; N18.30 Chronic kidney disease, stage 3 unspecified; I50.20 Unspecified systolic (congestive) heart failure; F17.210 Nicotine dependence, cigarettes, uncomplicated; Z88.2 Allergy status to sulfonamides; Z88.8 Allergy status to other drugs, medicaments and biological substances; Z79.899 Other long term (current) drug therapy; Z79.82 Long term (current) use of aspirin
CPT/HCPCS: 74018; A9270

== ENCOUNTER 2023-08-03 04:54 | Inpatient (IN) | payer MEDICARE, OTHER ==
[~2023-08-03] VITALS: Ht 162.6 cm; Wt 78.9 kg
[2023-08-06 07:42] VITALS: BP 140/84
== END 2023-08-06 12:40 | disposition home or self-care (01) | DRG 208 ==
LOC: ER 04:54 → ICUE 07:05 → MEDS 08-04 22:14
PROVIDERS: ADMIT Internal Medicine
PROC: 5A1945Z Respiratory Ventilation, 24-96 Consecutive Hours (ICD-10-PCS; principal; 2023-08-03)
PROC: 0DH67UZ Insertion of Feeding Device into Stomach, Via Natural or Artificial Opening (ICD-10-PCS; 2023-08-03)
PROC: 0T9B70Z Drainage of Bladder with Drainage Device, Via Natural or Artificial Opening (ICD-10-PCS; 2023-08-03)
DX: J18.9 Pneumonia, unspecified organism (principal); J96.21 Acute and chronic respiratory failure with hypoxia; J96.22 Acute and chronic respiratory failure with hypercapnia; N17.9 Acute kidney failure, unspecified; I42.9 Cardiomyopathy, unspecified; J44.1 Chronic obstructive pulmonary disease with (acute) exacerbation; I50.22 Chronic systolic (congestive) heart failure; I48.20 Chronic atrial fibrillation, unspecified; I13.0 Hypertensive heart and chronic kidney disease with heart failure and stage 1 through stage 4 chronic kidney disease, or unspecified chronic kidney disease; N18.30 Chronic kidney disease, stage 3 unspecified; G89.4 Chronic pain syndrome; B95.8 Unspecified staphylococcus as the cause of diseases classified elsewhere; F17.210 Nicotine dependence, cigarettes, uncomplicated; K21.9 Gastro-esophageal reflux disease without esophagitis; B96.1 Klebsiella pneumoniae [K. pneumoniae] as the cause of diseases classified elsewhere; S99.142A Salter-Harris Type IV physeal fracture of left metatarsal, initial encounter for closed fracture; R73.9 Hyperglycemia, unspecified; T38.0X5A Adverse effect of glucocorticoids and synthetic analogues, initial encounter; Z88.2 Allergy status to sulfonamides; Z88.8 Allergy status to other drugs, medicaments and biological substances; Z79.899 Other long term (current) drug therapy; Z79.82 Long term (current) use of aspirin; Z79.01 Long term (current) use of anticoagulants; Z79.2 Long term (current) use of antibiotics; Z90.13 Acquired absence of bilateral breasts and nipples; Z90.710 Acquired absence of both cervix and uterus; Z98.890 Other specified postprocedural states; Z99.81 Dependence on supplemental oxygen; Z85.3 Personal history of malignant neoplasm of breast; Z87.11 Personal history of peptic ulcer disease; Z87.01 Personal history of pneumonia (recurrent)

== ENCOUNTER 2023-10-05 14:40 | Emergency (ER) | payer MEDICARE, OTHER ==
[~2023-10-05] VITALS: Ht 167.6 cm; Wt 74.8 kg
[~2023-10-05 14:40] MED LIST changes: +Carvedilol12.5 MG PO; +Incruse Ellipta 62.5 INH; +JARDIANCE10 MG PO; +MELO7.5; +MELO7.5 PO; -XARELTO PO
[2023-10-05] MEDS ORDERED: MELO7.5 PO (15:29)
[2023-10-05] MEDS ORDERED: LORazepam 2 MG/ML 1ML Injection IV ONE (15:40)
[2023-10-05 15:48] LABS: BASOPHILS PERCENT AUTO 1 % (0-2); EOSINOPHILS ABSOLUTE AUTO 0.39 K/mm3 (0.00-0.68); EOSINOPHILS PERCENT AUTO 2 % (0-6); Hematocrit 32.2 % (33.0-51.0); Hemoglobin 10.4 g/dL (11.5-16.0); IMMATURE GRAN PERCENT AUTO 1 % (0-1); LYMPHOCYTES ABSOLUTE AUTO 1.85 K/mm3 (0.84-5.20); LYMPHOCYTES PERCENT AUTO 11 % (21-46); MONOCYTES ABSOLUTE AUTO 0.84 K/mm3 (0.16-1.47); MONOCYTES PERCENT AUTO 5 % (4-13); Mean Corpuscular HGB 26.7 pg (26.0-34.0); Mean Corpuscular HGB Conc 32.3 g/dL (31.5-36.5); Mean Corpuscular Volume 83 fL (80-100); Mean Platelet Volume 9.5 fL (9.1-12.4); NEUTROPHILS PERCENT AUTO 81 % (41-73); Platelet Count 541 K/mm3 (150-400); RDW Coefficient Variation 15.7 % (11.7-14.2); RDW Standard Deviation 47.6 fL (35.1-46.3); White Blood Cell Count 16.88 K/mm3 (4.00-11.30)
[2023-10-05 16:02] LABS: Albumin, Blood 3.7 g/dL (3.4-5.0); Albumin/Globulin Ratio 1.2 (0.8-1.8); Bilirubin, Total 0.4 mg/dL (0.1-1.0); Bun/Creatinine Ratio 15.9 (12.0-20.0); Calcium, Blood 8.9 mg/dL (8.5-10.1); Creatinine, Blood 2.52 mg/dL (0.40-1.00); Globulin, Blood 3.2 g/dL (2.2-4.0); Potassium, Blood 3.7 mmol/L (3.5-5.5); Total Protein, Blood 6.9 g/dL (6.4-8.2)
[2023-10-05 16:21] LABS: Influenza A, PCR NEGATIVE (NEGATIVE); Influenza B, PCR NEGATIVE (NEGATIVE); Resp Syncytial Virus, PCR NEGATIVE (NEGATIVE); SARS-Cov-2 (COVID-19) PCR, MMC NEGATIVE (NEGATIVE)
[2023-10-05] MEDS ORDERED: NS 1,000 ML IV SCH (16:35)
[2023-10-05 17:41] VITALS: BP 118/58
== END 2023-10-05 18:34 | disposition home or self-care (01) ==
LOC: ER 14:40
PROVIDERS: Emergency Medicine
DX: R06.02 Shortness of breath (principal); E86.0 Dehydration; Z88.8 Allergy status to other drugs, medicaments and biological substances; Z88.2 Allergy status to sulfonamides; Z79.899 Other long term (current) drug therapy; J44.9 Chronic obstructive pulmonary disease, unspecified; I13.0 Hypertensive heart and chronic kidney disease with heart failure and stage 1 through stage 4 chronic kidney disease, or unspecified chronic kidney disease; N18.30 Chronic kidney disease, stage 3 unspecified; I50.20 Unspecified systolic (congestive) heart failure; I48.91 Unspecified atrial fibrillation; F17.210 Nicotine dependence, cigarettes, uncomplicated
CPT/HCPCS: 0241U; 71045; 80053; 83880; 84484; 85025; 93005; 93010; 96361; 96374; 99285-25; J2060; J7030

== ENCOUNTER 2023-12-12 10:31 | Inpatient (IN) | payer MEDICARE, OTHER ==
[~2023-12-12] VITALS: Ht 167.6 cm; Wt 73.2 kg
[2023-12-12 11:35] LABS: BASOPHILS ABSOLUTE AUTO 0.07 K/mm3 (0.00-0.23); BASOPHILS PERCENT AUTO 1 % (0-2); EOSINOPHILS ABSOLUTE AUTO 0.49 K/mm3 (0.00-0.68); EOSINOPHILS PERCENT AUTO 3 % (0-6); Hematocrit 35.8 % (33.0-51.0); Hemoglobin 11.6 g/dL (11.5-16.0); IMMATURE GRAN ABSOLUTE AUTO 0.05 K/mm3 (0.00-0.10); IMMATURE GRAN PERCENT AUTO 0 % (0-1); LYMPHOCYTES ABSOLUTE AUTO 2.01 K/mm3 (0.84-5.20); LYMPHOCYTES PERCENT AUTO 13 % (21-46); MONOCYTES ABSOLUTE AUTO 0.54 K/mm3 (0.16-1.47); MONOCYTES PERCENT AUTO 4 % (4-13); Mean Corpuscular HGB 27.8 pg (26.0-34.0); Mean Corpuscular HGB Conc 32.4 g/dL (31.5-36.5); Mean Corpuscular Volume 86 fL (80-100); Mean Platelet Volume 9.9 fL (9.1-12.4); NEUTROPHILS ABSOLUTE AUTO 12.06 K/mm3 (1.96-9.15); NEUTROPHILS PERCENT AUTO 79 % (41-73); Platelet Count 449 K/mm3 (150-400); RDW Coefficient Variation 14.5 % (11.7-14.2); RDW Standard Deviation 44.8 fL (35.1-46.3); Red Blood Cell Count 4.18 M/mm3 (3.80-5.20); White Blood Cell Count 15.22 K/mm3 (4.00-11.30)
[2023-12-12 11:58] LABS: Albumin/Globulin Ratio 1.1 (0.8-1.8); Bilirubin, Total 0.9 mg/dL (0.1-1.0); Bun/Creatinine Ratio 11.2 (12.0-20.0); Calcium, Blood 9.7 mg/dL (8.5-10.1); Creatinine, Blood 3.38 mg/dL (0.40-1.00); Globulin, Blood 3.6 g/dL (2.2-4.0); Magnesium, Blood 2.4 mg/dL (1.6-2.4); Potassium, Blood 4.7 mmol/L (3.5-5.5); Total Protein, Blood 7.6 g/dL (6.4-8.2)
[2023-12-12 12:31] LABS: Source, Urine Clean Catch
[2023-12-12 12:35] LABS: Appearance, Urine Hazy (Clear); Bilirubin, Urine Neg (Neg); Blood, Urine Neg (Neg); Glucose Qualitative, Urine 2+ (Neg); Ketones, Urine Neg (Neg); Leukocyte Esterase, Urine Neg (Neg); Nitrite, Urine Neg (Neg); Protein, Urine Neg (Neg); Urobilinogen, Urine NORM (Normal)
[2023-12-12 12:48] LABS: Color, Urine No Color (P-Yellow)
[2023-12-12 12:49] LABS: Bacteria Many /hpf; Red Blood Cells, Urine 0-2 /hpf (0-2); Squamous Epithelial Cells Many /hpf (Few); White Blood Cells, Urine 0-2 /hpf (0-5)
[2023-12-12] MEDS ORDERED: Acetaminophen 325 MG TABLET PO PRN (14:25)
[2023-12-12 17:13] VITALS: BP 119/69
[2023-12-12] MEDS ORDERED: ONDA4ODT MM (17:36)
[2023-12-12] MEDS ORDERED: NS 1,000 ML IV SCH (18:00)
[2023-12-12] MEDS ORDERED: Albuterol 2.5 MG/3 ML VIAL INH PRN (18:10)
[2023-12-12] MEDS ORDERED: HyDROXyzine HCl 25 MG Tab PO PRN (18:10)
[2023-12-12] MEDS ORDERED: Rivaroxaban 10 MG Tab PO SCH (18:15)
[2023-12-12] MEDS ORDERED: CefTRIAXone Sodium 1,000 MG in NS 100 ML IV SCH (18:30)
[2023-12-12 19:28] VITALS: BP 110/64
--- NOTE | 2023-12-12 19:31 | NUR ---
ADMIT/SHIFT SUMMARY: PT ADMITTED TO RM 328 FROM ER AT 1703. PT WAS A/O X 3, SBA AT TIME OF ARRIVAL. PLEASANT AND COOPERATIVE. PT MEDICATIONS BROUGHT IN BY DAUGHTER. MED REC COMPLETED. SENT MEDICATIONS HOME WITH DAUGHTER. PT C/O PAIN TO BOTH LEGS AND FEET. TYLENOL GIVEN FOR PAIN. PT REPORTED LOWER ABD PAIN TOLERABLE AND DISCOMFORT WITH URINATION. PT ALSO ON O2 3 LPM VIA NC WHICH IS HER BASELINE NEEDS. PT DENIES CP, SHE DOES HAVE SOB WITH AMBULATION. PT DID REPORT DIZZINESS WITH AMBULATION. NS AT 50 ML/HR STARTED FOR GENTLE HYDRATION. ROCEPHIN ALSO STARTED. PT ORIENTED TO CALL LIGHT AND FALL PRECAUTIONS. BED ALARM SET FOR SAFETY.
[2023-12-12] MEDS ORDERED: OLANZapine 5 MG Tab PO SCH (21:00)
[2023-12-12] MEDS ORDERED: Gabapentin 100 MG Cap PO SCH (21:00)
[2023-12-12] MEDS ORDERED: FentaNYL Citrate 50 MCG/ML 2 ML Injection IV PRN (21:55)
[2023-12-13 05:02] VITALS: BP 131/68
[2023-12-13 05:22] LABS: BASOPHILS ABSOLUTE AUTO 0.07 K/mm3 (0.00-0.23); BASOPHILS PERCENT AUTO 1 % (0-2); EOSINOPHILS ABSOLUTE AUTO 0.62 K/mm3 (0.00-0.68); EOSINOPHILS PERCENT AUTO 6 % (0-6); Hematocrit 29.7 % (33.0-51.0); Hemoglobin 9.5 g/dL (11.5-16.0); IMMATURE GRAN ABSOLUTE AUTO 0.03 K/mm3 (0.00-0.10); IMMATURE GRAN PERCENT AUTO 0 % (0-1); LYMPHOCYTES ABSOLUTE AUTO 2.15 K/mm3 (0.84-5.20); LYMPHOCYTES PERCENT AUTO 22 % (21-46); MONOCYTES ABSOLUTE AUTO 0.64 K/mm3 (0.16-1.47); MONOCYTES PERCENT AUTO 7 % (4-13); Mean Corpuscular HGB 27.3 pg (26.0-34.0); Mean Corpuscular Volume 85 fL (80-100); NEUTROPHILS ABSOLUTE AUTO 6.31 K/mm3 (1.96-9.15); NEUTROPHILS PERCENT AUTO 64 % (41-73); Platelet Count 399 K/mm3 (150-400); RDW Coefficient Variation 14.6 % (11.7-14.2); RDW Standard Deviation 45.3 fL (35.1-46.3); Red Blood Cell Count 3.48 M/mm3 (3.80-5.20); White Blood Cell Count 9.82 K/mm3 (4.00-11.30)
--- NOTE | 2023-12-13 05:24 | NUR ---
SHIFT SUMMARY: PT IS A [place] 73 YEAR OLD WOMAN FULL CODE WHO WAS ADMITTED FOR ACUTE KIDNEY FAILURE. PT IS ON 3 LITERS OF OXYGEN AND GETS SOB WHEN GOING TO THE BATHROOM AND SOMETIMES FEELS DIZZY. PT HAS COMPLAINED OF HER FEET AND BACK HURTING TONIGHT AND PT RECEIVED PAIN MEDICATION THROUGH OUT THE SHIFT (SEE EMAR). PT'S IV INFILTRATED SO SHE RECIEVED A NEW IV IN PT'S LEFT FOREARM. PT HAS BEEN ON CONTINUOUS FLUIDS FOR GENTLE HYDRATION THROUGHOUT THE SHIFT. PT IS A&Ox4 AND COOPERATIVE, SHE CALLS WHEN SHE NEEDS ASSISTANCE TO THE BATHROM WITH HER FWW. PATIENT IS NOW RESTING WITH CALL LIGHT IN REACH.
[2023-12-13 05:39] LABS: Albumin, Blood 3.3 g/dL (3.4-5.0); Anion Gap 14 mmol/L (3-11); Blood Urea Nitrogen 41 mg/dL (8-24); Bun/Creatinine Ratio 11.5 (12.0-20.0); CO2, Blood 22 mmol/L (21-32); Calcium, Blood 9.1 mg/dL (8.5-10.1); Chloride, Blood 107 mmol/L (98-108); Creatinine, Blood 3.57 mg/dL (0.40-1.00); Glomerular Filtration Rate 13 (60-); Glucose, Blood 113 mg/dL (70-99); Magnesium, Blood 2.5 mg/dL (1.6-2.4); Phosphorus, Blood 4.6 mg/dL (2.5-4.9); Potassium, Blood 3.9 mmol/L (3.5-5.5); Sodium, Blood 139 mmol/L (136-145)
[2023-12-13 07:56] VITALS: BP 111/70
[2023-12-13] MEDS ORDERED: Enoxaparin 30 MG/0.3 ML SYR SC SCH (09:00)
[2023-12-13] MEDS ORDERED: Mupirocin 2% Ointment 22 GM TOP SCH (09:00)
[2023-12-13] MEDS ORDERED: Metoprolol Succinate 25 MG TABCR PO SCH (09:00)
[2023-12-13] MEDS ORDERED: Digoxin 0.125 MG Tab PO SCH (15:00)
[2023-12-13 15:32] VITALS: BP 105/55
--- NOTE | 2023-12-13 18:12 | NUR ---
SHIFT SUMMARY PT A&OX4. PT ADMITTED DUE TO ACUTE ON CHRONIC KIDNEY FAILURE. PT REPORTS R FLANK PAIN. PT REPORTS RELIEF WITH FENTYNAL. KPAD ON BACK TO HELP RELIEVE PAIN. PT HAS BEEN AMBULATING WITH FWW TO TOILET TO VOID. PT RECIEVING IV FLUIDS THROUGH SHIFT. PT HAS SCD'S ON BLE. PT ON 3L OF O2 VIA N/C. PT REPORTS HAVING 3L OF O2 AT HOME ALWAYS. O2 SATS BEEN 100%. PT ABLE TO MAKE NEEDS KNOWN AND CALL LIGHT IN REACH.
[2023-12-13 19:45] VITALS: BP 91/63
[2023-12-13] MEDS ORDERED: NS 1,000 ML IV SCH (21:00)
[2023-12-14 02:39] VITALS: BP 107/51
[2023-12-14 05:19] LABS: Anion Gap 12 mmol/L (3-11); Blood Urea Nitrogen 34 mg/dL (8-24); CO2, Blood 22 mmol/L (21-32); Calcium, Blood 8.7 mg/dL (8.5-10.1); Chloride, Blood 114 mmol/L (98-108); Creatinine, Blood 2.84 mg/dL (0.40-1.00); Glomerular Filtration Rate 17 (60-); Glucose, Blood 105 mg/dL (70-99); Iron Serum 48 ug/dL (50-170); Phosphorus, Blood 4.1 mg/dL (2.5-4.9); Potassium, Blood 4.4 mmol/L (3.5-5.5); Sodium, Blood 144 mmol/L (136-145); Total Iron Binding Capacity 282 ug/dL (250-450); Uric Acid, Blood 8.7 mg/dL (2.6-6.0)
--- NOTE | 2023-12-14 05:52 | NUR ---
Patient alert and oriented x3, VSS, resting comfortably in bed, wearing 3L oxygen which is home dosage level. Patient ambulating to restroom with standby/contact guard assistance. PRN pain medication given x2 per request, patient reporting significant pain to right flank/back. Urine sample sent to lab as ordered.
[2023-12-14 07:08] LABS: Hematocrit 27.4 % (33.0-51.0); Hemoglobin 8.4 g/dL (11.5-16.0); Mean Corpuscular HGB 27.1 pg (26.0-34.0); Mean Corpuscular HGB Conc 30.7 g/dL (31.5-36.5); Mean Corpuscular Volume 88 fL (80-100); Mean Platelet Volume 10.1 fL (9.1-12.4); Platelet Count 371 K/mm3 (150-400); RDW Coefficient Variation 14.9 % (11.7-14.2); White Blood Cell Count 7.45 K/mm3 (4.00-11.30)
[2023-12-14 07:36] VITALS: BP 109/52
[2023-12-14 15:44] VITALS: BP 118/62
[2023-12-14] MEDS ORDERED: HYDROcodone 5-APAP 325 TAB PO PRN (16:35)
--- NOTE | 2023-12-14 16:49 | NUR ---
SHIFT SUMMARY; PATIENT REMAINS IN BED DURING DAY. IS ENCOURAGED TO SIT ON EDGE OF BED SHE REFUSES TO GET UP TO CHAIR FOR MEALS. SHE COMPLAINS OF LEFT SIDE PAIN. ASKING FOR FENTANYL IV. SHE IS CURRENTLY ON HER 3RD LITER OF NS AND THEN WILL BE SALINE LOCKED. VITAL SIGNS ARE WNL AND STABLE. HER LUNGS ARE DIM THROUGHOUT BUT CLEAR. SHE IS A ONE PERSON ASSIST TO THE BEDSIE COMMODE. PLAN IS TO DC TOMORROW. PER HER DAUGHTER SHE HAS AN APPOINTMENT WITH A ELECTRIC POWER LINE EXAMINER ON THURSDAY.
[2023-12-14] MEDS ORDERED: Acetaminophen 325 MG TABLET PO SCH (18:00)
[2023-12-14 19:40] VITALS: BP 118/73
[2023-12-15 03:01] VITALS: BP 127/62
--- NOTE | 2023-12-15 05:24 | NUR ---
SHIFT SUMMARY 73 YR F ADMITTED ON 12/13/23. FULL CODE. NO ACUTE CHANGES THIS SHIFT. PT C/O PAIN AND GIVEN TYLENOL IT WAS TOO SOON FOR NEXT DOSE OF NORCO. SHE APPEARS TO HAVE RESTED COMFORTABLY THROUGHOUT THIS SHIFT. NO C/O CHEST PAIN OR SOB. BED IN LOW POSITION AND CALL LIGHT IN REACH.
[2023-12-15 05:35] LABS: Anion Gap 11 mmol/L (3-11); Blood Urea Nitrogen 26 mg/dL (8-24); Bun/Creatinine Ratio 11.7 (12.0-20.0); CO2, Blood 21 mmol/L (21-32); Calcium, Blood 8.6 mg/dL (8.5-10.1); Chloride, Blood 118 mmol/L (98-108); Creatinine, Blood 2.23 mg/dL (0.40-1.00); Glomerular Filtration Rate 23 (60-); Glucose, Blood 96 mg/dL (70-99); Iron Serum 40 ug/dL (50-170); Percent Saturation 13.2 % (15.0-50.0); Phosphorus, Blood 3.6 mg/dL (2.5-4.9); Potassium, Blood 4.5 mmol/L (3.5-5.5); Sodium, Blood 145 mmol/L (136-145); Total Iron Binding Capacity 302 ug/dL (250-450)
[2023-12-15 05:57] LABS: Hematocrit 28.1 % (33.0-51.0); Hemoglobin 8.6 g/dL (11.5-16.0); Mean Corpuscular HGB 27.2 pg (26.0-34.0); Mean Corpuscular HGB Conc 30.6 g/dL (31.5-36.5); Mean Corpuscular Volume 89 fL (80-100); Mean Platelet Volume 10.1 fL (9.1-12.4); Platelet Count 344 K/mm3 (150-400); RDW Standard Deviation 48.7 fL (35.1-46.3); Red Blood Cell Count 3.16 M/mm3 (3.80-5.20)
[2023-12-15 07:23] VITALS: BP 130/74
[2023-12-18 09:31] LABS: IMMUNOGLOBULIN A 111 mg/dL (68-408); IMMUNOGLOBULIN G 356 mg/dL (768-1632); IMMUNOGLOBULIN M 81 mg/dL (35-263)
[2023-12-18 09:40] LABS: ALBUMIN 3.22 g/dL (3.75-5.01); ALPHA 2 GLOBULIN 0.62 g/dL (0.48-1.05); BETA GLOBULIN 0.58 g/dL (0.48-1.10); GAMMA 0.38 g/dL (0.62-1.51); IMMUNOFIXATION REFLEX IFE Done; TOTAL PROTEIN,SERUM 5.1 g/dL (6.3-8.2)
== END 2023-12-15 14:19 | disposition home health service (06) | DRG 683 ==
LOC: ER 10:31 → MEDS 10:32
PROVIDERS: Family Medicine Adult Medicine; Hospitalist; Physician Assistant; ADMIT Internal Medicine
DX: N17.9 Acute kidney failure, unspecified (principal); F20.0 Paranoid schizophrenia; I13.0 Hypertensive heart and chronic kidney disease with heart failure and stage 1 through stage 4 chronic kidney disease, or unspecified chronic kidney disease; I50.22 Chronic systolic (congestive) heart failure; I42.9 Cardiomyopathy, unspecified; I48.20 Chronic atrial fibrillation, unspecified; G89.4 Chronic pain syndrome; J44.9 Chronic obstructive pulmonary disease, unspecified; N18.4 Chronic kidney disease, stage 4 (severe); I34.1 Nonrheumatic mitral (valve) prolapse; D63.1 Anemia in chronic kidney disease; G62.0 Drug-induced polyneuropathy; T39.395A Adverse effect of other nonsteroidal anti-inflammatory drugs [NSAID], initial encounter; Z99.81 Dependence on supplemental oxygen; Z55.6 Problems related to health literacy; Z85.3 Personal history of malignant neoplasm of breast; Z90.13 Acquired absence of bilateral breasts and nipples; Z90.89 Acquired absence of other organs; Z90.710 Acquired absence of both cervix and uterus; Z98.890 Other specified postprocedural states; Z87.891 Personal history of nicotine dependence; Z88.2 Allergy status to sulfonamides; Z88.8 Allergy status to other drugs, medicaments and biological substances; Z79.899 Other long term (current) drug therapy
CPT/HCPCS: 36415; 71046; 74176; 80053; 80069; 81001; 82570; 82784; 83521; 83540; 83550; 83605; 83735; 83880; 84155; 84156; 84165; 84300; 84550; 85025; 85027; 86334; 87086; 94640; 94664; 94760; 96374; 96375; 97116; 97162; 97530; 99284-25; A9270; G0378; J0696; J3010; J7030

== ENCOUNTER → 2024-10-19 | Outpatient (CLI) | payer MEDICARE, OTHER | LOC: LAB 18:22 → LAB SHORT 18:22 | DX: R39.9 Unspecified symptoms and signs involving the genitourinary system (principal) | CPT/HCPCS: 87086 ==

== ENCOUNTER 2025-01-25 16:50 | Emergency (ER) | payer MEDICARE, OTHER ==
[~2025-01-25] VITALS: Ht 167.6 cm; Wt 77.1 kg
[2025-01-25 17:06] VITALS: BP 145/99
[2025-01-25] MEDS ORDERED: Ondansetron 4 MG SoluTab SL ONE (17:15)
[2025-01-25 18:26] LABS: Source, Urine Clean Catch
[2025-01-25 18:31] LABS: Bilirubin, Urine Neg (Neg); Glucose Qualitative, Urine 4+ (Neg); Ketones, Urine Neg (Neg); Leukocyte Esterase, Urine 3+ (Neg); Protein, Urine Neg (Neg); Specific Gravity, Urine 1.015 (1.003-1.022); Urobilinogen, Urine NORM (Normal)
[2025-01-25 18:39] LABS: Color, Urine Pale Yellow (P-Yellow)
[2025-01-25 18:41] LABS: Red Blood Cells, Urine 0-2 /hpf (0-2); White Blood Cells, Urine 50-100 /hpf (0-5)
[2025-01-25] MEDS ORDERED: CEPH500 PO (19:56)
== END 2025-01-25 20:13 | disposition home or self-care (01) ==
LOC: ER 16:50
PROVIDERS: Student in an Organized Health Care Education/Training Program
DX: N30.90 Cystitis, unspecified without hematuria (principal); J44.9 Chronic obstructive pulmonary disease, unspecified; I13.0 Hypertensive heart and chronic kidney disease with heart failure and stage 1 through stage 4 chronic kidney disease, or unspecified chronic kidney disease; I50.20 Unspecified systolic (congestive) heart failure; N18.4 Chronic kidney disease, stage 4 (severe); I48.91 Unspecified atrial fibrillation; Z88.2 Allergy status to sulfonamides; Z88.8 Allergy status to other drugs, medicaments and biological substances; Z79.899 Other long term (current) drug therapy; Z87.891 Personal history of nicotine dependence
CPT/HCPCS: 81001; 87077; 87086; 87186; 99283; A9270